=== PATIENT | female | born 1930 | race Caucasian/White ===

== ENCOUNTER 2017-11-10 22:31 | Emergency (ER) | payer MEDICARE, OTHER ==
[2017-11-10 23:49] LABS: #Eosinphils 0.6 thou/uL (0.0-0.7); #Lymphocytes 1.5 thou/uL (1.20-3.40); #Monocytes 0.7 thou/uL (0.11-0.59); #Neutrophils 5.7 thou/uL (1.40-6.50); %Basophils 0.6 % (0.0-1.0); %Eosinophils 6.7 % (0.0-10.0); %Neutrophils 66.8 % (42.0-75.0); Hemoglobin 11.3 g/dL (12.0-16.0); Mean Corpuscular HGB CONC 32.6 g/dL (32.0-36.0); Mean Corpuscular Hemoglobin 30.5 pg (27.0-31.0); Mean Corpuscular Volume 93.4 fl (81.0-99.0); Mean Platelet Volume 9.2 fL (7.4-10.4); Platelet Count 154 thou/uL (130-400); RBC Distribution Width 11.7 % (11.5-14.5); White Blood Cell (WBC) Count 8.5 thou/uL (4.8-10.8)
[2017-11-11 00:02] LABS: ALT (SGPT) 14 U/L (8-55); AST (SGOT) 23 U/L (5-34); Albumin 3.7 g/dL (3.4-4.8); Alkaline Phosphatase 85 U/L (40-150); Anion Gap 14 mmol/L (10-20); BUN (Urea Nitrogen) 59 mg/dL (9.8-20.1); Bilirubin, Total 0.3 mg/dL (0.2-1.2); Calc. Creatinine Clearance 0 mL/min (70-130); Calcium 9.5 mg/dL (7.8-10.44); Carbon Dioxide 26 mmol/L (23-31); Chloride 102 mmol/L (98-107); Estimated GFR-MDRD 22; Glucose 167 mg/dL (83-110); Potassium 4.7 mmol/L (3.5-5.1); Protein, Total 7.7 g/dL (6.0-8.3); Sodium 137 mmol/L (136-145)
[2017-11-11 00:05] LABS: CKMB 1.8 ng/mL (0-6.6); Troponin I 0.012 ng/mL (< 0.028)
[2017-11-11 01:25] LABS: Bilirubin Negative (Negative); Blood, Urine Negative (Negative); Clarity CLEAR (Clear); Glucose, Urine (Dipstick) Negative (Negative); Leukocyte Negative (Negative); Nitrite Negative (Negative); Protein, Urine (Dipstick) Trace mg/dL (Neg-Trace); Specific Gravity, Urine 1.009 (1.002-1.036); Urobilinogen 0.2 mg/dL (0.2-1.0); pH, Urine 6.5 (5.0-9.0)
--- NOTE | 2017-11-11 07:18 | CT ---
CT CERVICAL SPINE WITHOUT CONTRAST: 11/11/2017 HISTORY: Dizziness. Trauma. Fall. COMPARISON: 08/18/2015 TECHNIQUE: Serial axial CT imaging at 2.5 mm intervals, from the skull base through the lung apices. Coronal an d sagittal reformatted imaging obtained. FINDINGS: The C1 ring is intact. No evidence for dens fracture. Occipital condyles are within normal limits. There is prominent degenerative change involving the atlantoaxial interspace/C1-2 articulation, part icularly on the left. Prominent facet and uncovertebral osteophyte formation noted on the right at C3-C4 and bilaterally at C4-C5. There is osseous fusion at C5-C6 with bilateral uncovertebral osteophyte formation. There i s disk space narrowing, degenerative endplate change, and anterior osteophyte formation at C6-C7, sta ble. Imaged lung apices demonstrate no acute findings. No acute fracture or evidence of dislocation is appreciated. The craniocervical junction and the cervicothoracic junction appear intact. No significant anterolis thesis or retrolisthesis. No prevertebral soft tissue swelling. IMPRESSION: Prominent multilevel cervical spine degenerative change. No displaced fracture or evidence of disloc ation seen. POS: [facility]
--- NOTE | 2017-11-11 07:19 | CT ---
HEAD CT WITHOUT CONTRAST: 11/11/2017 HISTORY: Fall. Dizzy. Nausea. COMPARISON: 11/23/2016 TECHNIQUE: Serial axial CT imaging at 5 mm intervals, from the vertex through the skull base, without contrast. FINDINGS: The imaged paranasal sinuses/mastoid air cells are well aerated. No displaced calvarial fracture. There is no intracranial hemorrhage, midline shift, mass effect, or ventricular enlargement. IMPRESSION: No acute findings. POS: [facility]
--- NOTE | 2017-11-11 07:36 | RAD ---
SINGLE VIEW PELVIS: D ate: 11/11/17 COMPARISON: 08/18/15. HISTORY: Fall today with pain. FINDINGS: Single view of the pelvis shows no evidence of acute fracture or dislocation. There is hardware in th e right femur. Moderate degenerative changes are seen in the right hip and lumbar spine. IMPRESSION: No evidence of acute osseous abnormality. POS: [facility]
--- NOTE | 2017-11-11 07:37 | RAD ---
TWO VIEWS OF THE RIGHT FEMUR: COMPARISON: None. HISTORY: Right femur pain after trauma. FINDINGS: Two views of the right femur show a intramedullary minerva in the proximal aspect of the femur. There is periosteal thickening involving the mid portion of the femur secondary to a remote healed fracture. No acute fracture or dislocation is seen. Vascular calcifications are present. IMPRESSION: No evidence of acute osseous abnormality. POS: [facility]
--- NOTE | 2017-11-11 07:40 | RAD ---
2 VIEWS RIGHT HIP: Date: 11/11/17 COMPARISON: None. HISTORY: Fall with right leg pain. FINDINGS: Two views of the right hip show the patient to be status post open reduction and internal fixation of the proximal femur with an intramedullary minerva. No acute fracture is seen. No perihardware lucency is seen. There is moderate degenerative change in the right hip. IMPRESSION: 1. No evidence of acute osseous abnormality. 2. Moderate right hip osteoarthritis. POS: [facility]
--- NOTE | 2017-11-11 07:41 | RAD ---
3 VIEWS LUMBOSACRAL SPINE: Date: 11/11/17 COMPARISON: 11/17/15. HISTORY: Back pain after trauma. FINDINGS: Three views of the lumbosacral spine shows compression deformity of the L3 vertebral body which appea rs new compared to the prior examination. There is Grade I retrolisthesis of L2 on L3. There are diego re degenerative changes throughout the rest of the lumbar spine with intervertebral disc space narrow ing and osteophyte formation. IMPRESSION: 1. There appears to be an acute compression deformity of the superior end plate of L3 with spondylol isthesis of L2 on L3. 2. Severe degenerative changes of the lumbar spine. POS: [facility]
--- NOTE | 2017-11-11 07:55 | CT ---
PRELIMINARY REPORT/[facility]/EMERGENCY AFTER HOURS PROCEDURE: EXAM: CT Lumbar Spine Without Intravenous Contrast CLINICAL HISTORY: 87 years old, female; Injury or trauma; Initial encounter; Abrasion; fall earlier today. felt dizzy a nd nauseous around 1600 then fell. Denies chest pain or SOB prior to fall. hx chronic back pain and C /O back pain now. TECHNIQUE: Axial computed tomography images of the lumbar spine without intravenous contrast. Coronal and sagittal reformatted images were created and reviewed. COMPARISON: No relevant prior studies available. FINDINGS: Vertebrae: Likely acute fracture of L3 with anterior L3 vertebral body cortical irregularity. Old fra cture of L1. Lumbar levoscoliosis. Severe central canal stenosis at L3-4 due to a diffusely bulging d isc, bilateral facet / ligamentum flavum hypertrophy, and mild retrolisthesis of L4 with respect to L 3. Discs/spinal canal/neural foramina: Moderate central canal stenosis at L2-3. Severe central canal yoli nosis at L3-4, L4-5, and L5-S1. Vacuum disc formation at T11-12, L1-2, L2-3, L3-4, L4-5, and L5-S1. A t least partial bony fusion of T12 and L1. Severe central canal stenosis at L4-5 and L5-S1 due to a d iffusely bulging disc and bilateral facet / ligamentum flavum hypertrophy. Moderate central canal yoli nosis at L2-3 due to a diffusely bulging disc and bilateral facet / ligamentum flavum hypertrophy. Soft tissues: Unremarkable. IMPRESSION: 1. Likely acute fracture of L3 with anterior L3 vertebral body cortical irregularity. 2. Old fracture of L1. 3. Moderate central canal stenosis at L2-3. 4. Severe central canal stenosis at L3-4, L4-5, and L5-S1. Thank you for allowing us to participate in the care of your patient. Dictated and Authenticated by: Colton Fermin MD 11/11/2017 2:56 AM Central Time ([place] & [place]) FINAL REPORT EMERGENT AFTER HOURS CT LUMBAR SPINE: IMPRESSION: Comparison is made with the study dated 11/17/15. Remote compression deformity involving L1 is redemo nstrated, chronic. There is interval compression deformity involving the superior end plate of L3, a ge indeterminate. There is minimal stranding of the prevertebral soft tissues. Cortical disruption is not definitely identified. Multilevel degenerative changes are seen with severe central canal yoli nosis at L4-5 and L3-4. Vascular calcifications are noted. POS: [facility]
--- NOTE | 2017-11-11 08:16 | CT ---
PRELIMINARY REPORT/[facility]/EMERGENCY AFTER HOURS PROCEDURE: EXAM: CT Thoracic Spine Without Intravenous Contrast CLINICAL HISTORY: 87 years old, female; Injury or trauma; Initial encounter; Abrasion; fall earlier today. felt dizzy a nd nauseous around 1600 then fell. Denies chest pain or SOB prior to fall. Pt reports chronic back pa in and C/O back pain now. TECHNIQUE: Axial computed tomography images of the thoracic spine without intravenous contrast. Coronal and sagittal reformatted images were created and reviewed. COMPARISON: No relevant prior studies available. FINDINGS: Vertebrae: Old fracture of L1. Age-indeterminate slight superior loss of height of T4 and T6. Likely acute fracture of L3 with anterior L3 vertebral body cortical irregularity. Discs/spinal canal/neural foramina: Spinal degenerative changes. At least partial bony fusion of T12 and L1. No spinal canal stenosis. Soft tissues: Unremarkable. IMPRESSION: 1. Old fracture of L1. 2. Age-indeterminate slight superior loss of height of T4 and T6. 3. Likely acute fracture of L3 with anterior L3 vertebral body cortical irregularity. Thank you for allowing us to participate in the care of your patient. Dictated and Authenticated by: Colton Fermin MD 11/11/2017 4:33 AM Central Time ([place] & [place]) FINAL REPORT CT THORACIC SPINE: Multiple axial tomograms were obtained through the thoracic spine with multiplanar reconstruction. Compression deformity at L1 with loss of central and anterior height approximately 50%. This appears to represent old fracture given the anterior hypertrophic change present. Possibly acute fracture a t L3 as noted on the preliminary report, although this is incompletely evaluated. (See dedicated CT scan lumbar spine.) There are other mild wedge deformities. I am in agreement with the preliminary report. POS: [facility]
== END 2017-11-11 10:36 | disposition home or self-care (01) ==
LOC: ERS 22:31
DX: S32.039A Unspecified fracture of third lumbar vertebra, initial encounter for closed fracture (principal); E11.9 Type 2 diabetes mellitus without complications; K21.9 Gastro-esophageal reflux disease without esophagitis; I10 Essential (primary) hypertension; I25.10 Atherosclerotic heart disease of native coronary artery without angina pectoris; F32.9 Major depressive disorder, single episode, unspecified; F41.9 Anxiety disorder, unspecified; W19.XXXA Unspecified fall, initial encounter
CPT/HCPCS: 70450; 72100; 72125; 72128; 72131; 72170; 73502; 73552; 80053; 81003; 82553; 82962; 84484; 85025; 87086; 93005; L0639; 36416; 96360

== ENCOUNTER 2017-11-12 16:38 | Inpatient (IN) | payer MEDICARE, OTHER ==
[2017-11-12] MEDS ORDERED: Magnesium Sulfate 2 GM/100 ML BAG ONE (16:53)
[2017-11-12] MEDS ORDERED: Albuterol Sulfate 2.5 mg/0.5 ml Neb ONE (16:54)
[2017-11-12] MEDS ORDERED: Albuterol Sulfate 2.5 mg/3 ml Neb ONE (16:54)
[2017-11-12 17:19] LABS: #Basophils 0.1 thou/uL (0.0-0.2); #Eosinphils 0.8 thou/uL (0.0-0.7); #Lymphocytes 1.3 thou/uL (1.20-3.40); #Monocytes 1.1 thou/uL (0.11-0.59); %Basophils 0.4 % (0.0-1.0); %Eosinophils 5.4 % (0.0-10.0); %Lymphocytes 9.2 % (21.0-51.0); %Monocytes 7.8 % (0.0-10.0); %Neutrophils 77.1 % (42.0-75.0); Mean Corpuscular Hemoglobin 31.1 pg (27.0-31.0); Mean Corpuscular Volume 94.3 fl (81.0-99.0); Mean Platelet Volume 8.4 fL (7.4-10.4); Platelet Count 165 thou/uL (130-400); Red Blood Cell (RBC) Count 3.54 mill/uL (4.20-5.40); White Blood Cell (WBC) Count 14.3 thou/uL (4.8-10.8)
[2017-11-12 17:22] LABS: Actual Bicarbonate (HCO3a) 26.8 mEq/L (22-26); Base Excess (BEa) -0.3 mEq/L (0 (+/-) 2.5); CO2 Tension 56.5 mmHg (35.0-45.0); Hematocrit-ABG 32.5 % (36.0-47.0); Hemoglobin (Hb) 10.1 g/dL (12.0-16.0); O2 Tension (PaO2) 87.8 mmHg (80.0-100.0); pH, Arterial 7.29 (7.35-7.45)
[2017-11-12 17:23] LABS: ALV-art Gradient 124.775 (0-20); Analyzer IN Cardio ER; Calcium, Ionized 1.2 mmol/L (1.12-1.30); Puncture Site RB
[2017-11-12] MEDS ORDERED: Ondansetron HCl/PF 4 MG/2 ML Vial ONE (17:39)
[2017-11-12 17:46] LABS: ALT (SGPT) 14 U/L (8-55); AST (SGOT) 21 U/L (5-34); Albumin 3.4 g/dL (3.4-4.8); Alkaline Phosphatase 77 U/L (40-150); Anion Gap 11 mmol/L (10-20); BUN (Urea Nitrogen) 49 mg/dL (9.8-20.1); Bilirubin, Total 0.6 mg/dL (0.2-1.2); Calc. Creatinine Clearance 0 mL/min (70-130); Calcium 8.6 mg/dL (7.8-10.44); Carbon Dioxide 26 mmol/L (23-31); Chloride 104 mmol/L (98-107); Estimated GFR-MDRD 22; Globulin 3.6 g/dL (2.4-3.5); Glucose 270 mg/dL (83-110); Potassium 4.3 mmol/L (3.5-5.1); Sodium 137 mmol/L (136-145)
[2017-11-12 17:51] LABS: CKMB 1.3 ng/mL (0-6.6)
--- NOTE | 2017-11-12 18:10 | RAD ---
PORTABLE CHEST: 11/12/17 HISTORY: Dyspnea. COMPARISON: 11/23/16 Heart is mildly enlarged. There is vascular and interstitial congestion consistent with interstitial and early alveolar edema. No confluent consolidation. No significant effusion. IMPRESSION: Congestive changes with evidence of interstitial and early alveolar edema. POS: [facility]
[2017-11-12 20:50] LABS: Troponin I 0.078 ng/mL (< 0.028)
[2017-11-12] MEDS ORDERED: Ondansetron ODT 4 MG TAB SL PRN (21:27)
[2017-11-12] MEDS ORDERED: Ondansetron HCl/PF 4 MG/2 ML Vial IVP PRN (21:27)
[2017-11-12] MEDS ORDERED: cefTRIAXone\\ROCEPHIN 1 GM in Sodium Chloride 0.9% 100 ML IVPB SCH (22:00)
[2017-11-12] MEDS: Azithromycin 500 MG in Sodium Chloride 0.9% 250 ML 250 ML IVPB SCH (22:26)
[2017-11-12] MEDS: cefTRIAXone\\ROCEPHIN 1 GM, Syringe 0.4 ML in Sterile Water 9.6 ML SLOW IVP SCH (22:27)
[2017-11-12 23:15] VITALS: BMI 30.2
[2017-11-12] MEDS: Sodium Chloride 0.9% 1,000 ML IV SCH (23:42)
--- NOTE | 2017-11-13 00:29 | PDOC.FPRHP ---
Addendum entered and electronically signed by Anita Loving DO 11/13/17 08 :41: Physical exam: General: Patient alert and oriented x3. NAD. Resting comfortably on BiPAP. Well nourished. HEENT: EOMI. MMM. Cardio: RRR. 2/6 systolic murmur. No edema. Respiratory: Decreased breath sounds throughout. No wheezing or rales. Currently satting in upper 90's on BiPAP Abdomen: Soft, non-tender to palpation Neuro: No focal deficits. Original Note: - History of Present Illness Chief Complaint: Respiratory failure History of Present Illness: Patient seen on 11/12/2017 87 year old female with history of mild CHF with EF 40-45%, HTN, CKD stage III presents with acute hypoxic respiratory failure. Patient was reportedly at home with her son when she started to feel unwell. She asked her son to call 911, and the next thing she knew, she was at the hospital. She does not recall all of the events in between. EMS reports that patient's oxygen saturation was down in the 50's. Patient was given O2 in route and started on BiPAP upon arrival to ED as her O2 sats on 4 L was only 67%. She has been satting in the upper 90's on BiPAP. Patient does report that over the last two week she has had a cough with mild sputum production. She has otherwise felt fine and denies fever, sore throat, headache, nasal congestion, chest pain, or palpitations. Patient states that she has been trying to get into [facility] to have the cough addressed. ED Course: Patient was given albuterol 2.5 mg x2, duoneb 3 ml x2, and Mg sulfate 2 g in ED. She was also started on BiPAP for acute hypoxic respiratory failure. - Allergies/Adverse Reactions Allergies Allergy/AdvReac Type Severity Reaction Status Date / Time clarithromycin [From Biaxin] Allergy Unknown Verified 07/27/17 17:20 metoclopramide HCl Allergy Unknown Verified 07/27/17 17:20 [From Reglan] sulfamethoxazole Allergy Unknown Verified 07/27/17 17:20 [From Bactrim] trimethoprim [From Bactrim] Allergy Unknown Verified 07/27/17 17:20 levofloxacin [From Levaquin] AdvReac Mild Nausea Verified 07/27/17 17:20 - Home Medications Medication Instructions Recorded Confirmed Type Polyethylene Glycol 3350 [Miralax] 17 gm PO Q2DAYS PRN 03/14/14 11/13/17 History Aspirin [Aspirin EC] 81 mg PO DAILY 06/22/14 11/13/17 History Escitalopram Oxalate [Lexapro] 20 mg PO DAILY 06/22/14 11/13/17 History Pantoprazole [Protonix] 40 mg PO DAILY 08/18/15 11/13/17 History Zolpidem Tartrate [Ambien] 5 mg PO HS PRN 11/17/15 11/13/17 History Ondansetron [Zofran ODT] 4 mg PO Q8HR PRN 11/18/15 11/13/17 History cloNIDine HCl 0.2 mg PO BID 11/24/16 11/13/17 History Acetaminophen With Codeine 1 tablet PO Q6HR PRN 07/27/17 11/13/17 History [Tylenol with Codeine #3] Amlodipine [Norvasc] 5 tab PO BID 07/27/17 11/13/17 History Multivit-Minerals/Folic/Ginkgo 1 tablet PO DAILY 07/27/17 11/13/17 History [One Daily For Women 50+ Adv] Nitroglycerin 0.4 mg SL ASDIR PRN 07/27/17 11/13/17 History Pregabalin [Lyrica] 2 cap PO QPM 07/27/17 11/13/17 History Pregabalin [Lyrica] 25 mg PO QAM 07/27/17 11/13/17 History Carvedilol 25 mg PO BID #1 tablet 07/28/17 11/13/17 Rx Aspirin [Ecotrin] 81 mg PO DAILY 11/13/17 11/13/17 History - History PMHx: Ischemic cardiomyopathy with EF 40-45%, Essential HTN, Chronic kidney disease stage III, OA, DM type II, MDD, RLS, GERD PSHx: Appendectomy, Hysterectomy, Bladder suspension, Cystoscopy and ureteral stent placement FHx: Noncontributory Social: Patient lives at home with son. She reports that she is having difficulty with ADL's. She is recently (approximately 1 year ago). Patient denies tobacco, alcohol, or illicit drug use. - Review of Systems General: denies: fever/chills, weight/appetite/sleep changes, fatigue Eyes: denies: vision changes ENT: denies: nasal congestion, rhinorrhea Respiratory: reports: cough, congestion, shortness of breath Cardiovascular: denies: chest pain, palpitation, edema Gastrointestinal: denies: nausea, vomiting, diarrhea, constipation Genitourinary: reports: polyuria. denies: dysuria Skin: denies: rashes, lesions Musculoskeletal: reports: pain, arthritis/arthralgias Neurological: reports: syncope (Uncertain; cannot recall the events) Psychological: reports: anxiety, depression - Vital signs BP: 135/51 HR: 101 RR: 30 Tmax: 99.2 Pox: 67% on 4L Wt: 85 kg - Physical Exam Neck: supple, trachea midline Musculoskeletal: normal tone, ROM grossly normal Neurological: CN II-XII intact, normal sensation Skin: no rash/lesions, no jaundice Psychiatric: normal mood and affect FMR H&P: Results - Labs Result Diagrams: 11/13/17 03:54 11/13/17 03:54 Lab results: WBC 14.3 thou/uL (4.8-10.8) H 11/12/17 17:09 Hgb 11.0 g/dL (12.0-16.0) L 11/12/17 17:09 Hct 33.3 % (36.0-47.0) L 11/12/17 17:09 MCV 94.3 fl (81.0-99.0) 11/12/17 17:09 Plt Count 165 thou/uL (130-400) 11/12/17 17:09 Neutrophils % 77.1 % (42.0-75.0) H 11/12/17 17:09 ABG pH 7.29 (7.35-7.45) L 11/12/17 17:00 ABG pCO2 56.5 mmHg (35.0-45.0) H 11/12/17 17:00 ABG pO2 87.8 mmHg (80.0-100.0) 11/12/17 17:00 Sodium 137 mmol/L (136-145) 11/12/17 17:09 Potassium 4.3 mmol/L (3.5-5.1) 11/12/17 17:09 Chloride 104 mmol/L (98-107) 11/12/17 17:09 Carbon Dioxide 26 mmol/L (23-31) 11/12/17 17:09 BUN 49 mg/dL (9.8-20.1) H 11/12/17 17:09 Creatinine 2.11 mg/dL (0.6-1.1) H 11/12/17 17:09 Glucose 270 mg/dL (83-110) H 11/12/17 17:09 Lactic Acid 1.6 mmol/L (0.5-2.2) 11/12/17 17:09 Calcium 8.6 mg/dL (7.8-10.44) 11/12/17 17:09 Total Bilirubin 0.6 mg/dL (0.2-1.2) 11/12/17 17:09 AST 21 U/L (5-34) 11/12/17 17:09 ALT 14 U/L (8-55) 11/12/17 17:09 Alkaline Phosphatase 77 U/L (40-150) 11/12/17 17:09 CK-MB (CK-2) 1.3 ng/mL (0-6.6) 11/12/17 17:09 B-Natriuretic Peptide 276.6 pg/mL (0-100) H 11/12/17 17:09 Serum Total Protein 7.0 g/dL (6.0-8.3) 11/12/17 17:09 Albumin 3.4 g/dL (3.4-4.8) 11/12/17 17:09 FMR H&P: A/P - Problem List (1) Acute respiratory failure with hypoxia Current Visit: No Status: Acute Code(s): J96.01 - ACUTE RESPIRATORY FAILURE WITH HYPOXIA (2) Community acquired pneumonia Current Visit: Yes Status: Acute Code(s): J18.9 - PNEUMONIA, UNSPECIFIED ORGANISM (3) Combined systolic and diastolic congestive heart failure Current Visit: Yes Status: Chronic Code(s): I50.40 - UNSP COMBINED SYSTOLIC AND DIASTOLIC (CONGESTIVE) HRT FAIL (4) HLD (hyperlipidemia) Current Visit: No Status: Chronic Code(s): E78.5 - HYPERLIPIDEMIA, UNSPECIFIED (5) Anxiety and depression Current Visit: No Status: Chronic Code(s): F41.9 - ANXIETY DISORDER, UNSPECIFIED; F32.9 - MAJOR DEPRESSIVE DISORDER, SINGLE EPISODE, UNSPECIFIED (6) DM type 2 (diabetes mellitus, type 2) Current Visit: No Status: Chronic Qualifiers: Diabetes mellitus complication status: with kidney complications Diabetes mellitus complication detail: with chronic kidney disease Diabetes mellitus skilled nursing insulin use: unspecified skilled nursing insulin use status Chronic kidney disease stage: stage 3 (moderate) Qualified Code(s): E11.22 - Type 2 diabetes mellitus with diabetic chronic kidney disease; N18.3 - Chronic kidney disease, stage 3 (moderate); N18.3 - Chronic kidney disease, stage 3 (moderate) (7) GERD (gastroesophageal reflux disease) Current Visit: No Status: Chronic Code(s): K21.9 - GASTRO-ESOPHAGEAL REFLUX DISEASE WITHOUT ESOPHAGITIS (8) Hypertension Current Visit: No Status: Chronic Code(s): I10 - ESSENTIAL (PRIMARY) HYPERTENSION Qualifiers: Hypertension type: essential hypertension Qualified Code(s): I10 - Essential (primary) hypertension (9) Physical deconditioning Current Visit: No Status: Chronic Code(s): R53.81 - OTHER MALAISE (10) Chronic kidney disease, stage III (moderate) Current Visit: Yes Status: Chronic Code(s): N18.3 - CHRONIC KIDNEY DISEASE, STAGE 3 (MODERATE) (11) Vertebral fracture Current Visit: Yes Status: Acute Code(s): [id number] - Qualifiers: Encounter type: subsequent encounter Lumbar vertebra fracture level: L2 - Plan 1. Acute hypoxic respiratory failure - 50% on RA, 67% on 4L NC - On BiPAP satting upper 90's - Likely 2/2 CAP vs. Bronchitis vs. PE - Mildly elevated WBC with mild suspicion for CAP; started on rocephin and azithromycin - D-dimer pending; VQ scan pending D-dimer results, will consider starting on therapeutic heparin/lovenox depending on results - 2 week history of cough; has not been evaluated or treated in last 2 weeks - Possibly related to norco overdose (reportedly took 2 pills of unknown dose and has stage III CKD) - Continue BiPAP; wean as appropriate - Patient in IMCU; pulmonology to follow, appreciate recs - PH 7.19, pCO2 56.5, pO2 88 - Trend cardiac enzymes (indeterminate range currently) - NS @ 70 ml/hr until off BiPAP 2. CAP vs. Acute bacterial bronchitis - Mildly elevated WBC with worsening cough over the past two weeks - Associated with acute hypoxic respiratory failure requiring BiPAP - Treatment with rocephin and azithromycin for presumed CAP - Treatment with steroids, rocephin and duonebs for presumed bacterial bronchitis - Reevaluate clinically in AM - Strep pneumo urinary ag pending - Procalcitonin to further evaluate for infection 3. 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 HTN - IV BP medications until off BiPAP - Continue home medications once off BiPAP 5. HLD - Continue home medications once of BiPAP 6. DM type II - Mild SSI - Continue home medications - ACHS accuchecks 7. Depression and Anxiety - Continue home medications once off BiPAP 8. GERD - IV pepcid 9. OA - Tylenol for pain PRN/continue home medications once tolerating PO 10. RLS - Continue home medications once off BiPAP 11. Acute on chronic kidney disease stage III - Cr 2.11 with GFR of 22 placing patient in stage 4 CKD - Mildly fluid resuscitate and continue to monitor BMP - Consider consulting nephrology in the AM; patient sees Dr. Mc outpatient 12. Acute L2 vertebral fracture - s/p fall day prior to admission - Prescribed [place] for pain - Patient takes tylenol 3 for general pain daily; concern that patient may have taken too many pain meds - Until respiratory status has improved, will attempt to treat pain with tylenol Disposition/LOS: Admit to IMCU. Continue on BiPAP. Anticipate stay of at least 2 days. FMR H&P: Upper Level - Pertinent history Pt is a pleasant 87 yo WF w/ hx of rEF CHF 40-45% who present with acute hypoxic respiratory failure per EMS. She was found to be satting in the 50s-60% on RA and was started on Bipap. She appears comfortable during my exam on Bipap , speaking freely w/o SOB. Reports that she cannot remember exactly what happened other than she was feeling sleepy and told her son to call 911 as she was feeling very SOB. Reports that she took some narcotic pain medicine earlier today and it made her sleepy and she wondering if this affected her breathing. No hx of blood clots. Does report recent hx of cough and feeling ill over the last few weeks and being more sedentary in bed. Denies fever, chill, n/v. Of note, she was seen in the ED yesterday after a fall at home and was found to have lumber vertebral fx. - Pertinent findings BNP elevated above her baseline D-dimer of 10 VQ scan pending gen: alert, oriented, on bipap satting 97%, speaking comfortably, does not appear winded cardiac: RRR pulm: decreased air movement b/l, wheezing abdomen: soft non TTP - Plan Date/Time: 11/13/17 0013 I, Lorena Oconnor, have evaluated this patient and agree with findings/plan as outlined by application internship resident. 1. acute hypoxic respiratory failure-admit IMCU, stable, unsure of cause at this point PE at top of differential, will not be able to obtain VQ scan until morning so we will give her a Th. lovenox renally dosed tonight. Other DDx includes-accidental opioid overdose, CHF exac, bronchitis/obstructive process 2. bronchitis vs early CAP-airways are very tight, treat with steroids, nebs, start abx for now until resp status improving 3. CHF-reduced EF in November 2016, will repeat this stay 4. acute lumber vertebral fx-treat pain appropriately, caution with opioids 5. CKD IV-consult nephro in AM, may need recs regarding treatment of PE, needing outpatient follow up with stable CKD Attending Addendum - Attending Addendum Date/Time: 11/12/17 1120 I personally evaluated the patient and discussed the management with Dr. Manuel. I agree with the History, Examination, Assessment and Plan documented above with any addition or exceptions noted below. I examined the patient on 11/12/17 in the ER. The patient was resting comfortably on Bipap. She presented to the ER via EMS after becoming unresponsive and hypoxic. Lung exam shows scattered wheezing and decreased air movement. She has no edema in lower extremities. Will treat with azithromycin and rocephin. Repeat echo. Will check D-dimer. If elevated, patient will be set up for VQ scan. Renal function will not support CTA chest. Pain control for lumbar fracture. PT eval when stable from respiratory standpoint.
[2017-11-13 01:05] LABS: CKMB 1.1 ng/mL (0-6.6); Troponin I 0.101 ng/mL (< 0.028)
[2017-11-13] MEDS ORDERED: Enoxaparin Sodium 100 MG/ML SYRINGE SC SCH (01:30)
[2017-11-13] MEDS ORDERED: Dextrose 5% in Water 1,000 ML IV PRN (01:43)
[2017-11-13] MEDS ORDERED: Dextrose 50% Abboject 50 ML SYRINGE SLOW IVP PRN (01:43)
[2017-11-13] MEDS ORDERED: hydrALAZINE 20 MG/ML VIAL SLOW IVP PRN (01:44)
[2017-11-13] MEDS: Acetaminophen 325 MG TAB PO PRN ×3 (02:52→23:16)
[2017-11-13 03:07] LABS: Troponin I 0.072 ng/mL (< 0.028)
[2017-11-13] MEDS ORDERED: Nitroglycerin 0.4 MG TAB (25 Tab Bottle) SL PRN (03:45)
[2017-11-13] MEDS ORDERED: Ondansetron ODT 4 MG TAB PO PRN (03:45)
[2017-11-13 04:25] LABS: #Eosinphils 0.1 thou/uL (0.0-0.7); #Lymphocytes 0.8 thou/uL (1.20-3.40); #Monocytes 0.3 thou/uL (0.11-0.59); #Neutrophils 8.5 thou/uL (1.40-6.50); %Eosinophils 0.6 % (0.0-10.0); %Lymphocytes 8.4 % (21.0-51.0); %Neutrophils 87.9 % (42.0-75.0); Hemoglobin 10.6 g/dL (12.0-16.0); Mean Corpuscular Hemoglobin 30.3 pg (27.0-31.0); Mean Corpuscular Volume 94.8 fl (81.0-99.0); Mean Platelet Volume 8.7 fL (7.4-10.4); Platelet Count 146 thou/uL (130-400); Red Blood Cell (RBC) Count 3.49 mill/uL (4.20-5.40); White Blood Cell (WBC) Count 9.7 thou/uL (4.8-10.8)
[2017-11-13 04:38] LABS: Anion Gap 15 mmol/L (10-20); BUN (Urea Nitrogen) 45 mg/dL (9.8-20.1); Calc. Creatinine Clearance 27 mL/min (70-130); Calcium 8.8 mg/dL (7.8-10.44); Carbon Dioxide 23 mmol/L (23-31); Chloride 105 mmol/L (98-107); Estimated GFR-MDRD 25; Glucose 246 mg/dL (83-110); Potassium 4.9 mmol/L (3.5-5.1); Sodium 138 mmol/L (136-145)
[2017-11-13 05:31] LABS: CKMB 1.2 ng/mL (0-6.6)
--- NOTE | 2017-11-13 08:00 | PDOC.FM ---
- Subjective Subjective: CC: Multiple complaints HPI: Patient resting off BiPAP and on 4L NC. Denies SOB. patient is tangential and desired to talk about multiple complaints including the sore on her foot, issues she had with her son at the rehab facility/long term, concerns about lul the flu, and her possible medication interactions. She also spoke frequently about her late who past 2 years ago this Wednesday. She became tearful regarding this subject multiple times. - Objective MAR Reviewed: Yes Vital Signs & Weight: Vital Signs (12 hours) Temp Pulse Resp BP Pulse Ox 11/13/17 07:18 97.9 F 70 18 137/57 L 98 11/13/17 06:02 69 18 100 11/13/17 04:00 98.1 F 74 20 134/46 L 98 11/13/17 02:05 71 11/13/17 02:04 99 11/12/17 23:35 98.8 F 67 16 105/45 L 95 11/12/17 23:14 65 99 11/12/17 23:12 100 11/12/17 21:40 99.3 F 71 24 H 151/67 H 98 Weight Weight 85.049 kg I&O: 11/12/17 11/13/17 11/14/17 06:59 06:59 06:59 Intake Total 950 Balance 950 Result Diagrams: 11/13/17 03:54 11/13/17 03:54 Radiology Reviewed by me: Yes <Alton Rose - Last Filed: 11/13/17 10:08> - Objective Vital Signs & Weight: Vital Signs (12 hours) Temp Pulse Resp BP Pulse Ox 11/13/17 09:46 70 11/13/17 07:45 97.9 F 70 18 94 L 11/13/17 07:18 97.9 F 70 18 137/57 L 98 11/13/17 06:02 69 18 100 11/13/17 04:00 98.1 F 74 20 134/46 L 98 11/13/17 02:05 71 11/13/17 02:04 99 Weight Weight 85.049 kg I&O: 11/12/17 11/13/17 11/14/17 06:59 06:59 06:59 Intake Total 950 Balance 950 Result Diagrams: 11/13/17 03:54 11/13/17 03:54 <Maggie Carter - Last Filed: 11/13/17 11:37> Phys Exam - Physical Examination Constitutional: NAD HEENT: moist MMs, sclera anicteric Respiratory: no wheezing, clear to auscultation bilateral (decent air movement. ) Cardiovascular: RRR holosystolic murmur 2/6 Gastrointestinal: soft, non-tender Musculoskeletal: no edema small black eschar on plantar surface left second digit. Neurological: non-focal, moves all 4 limbs Psychiatric: A&O x 3 Deviation from normal: depressed affect and tearful at times. Skin: cap refill <2 seconds <Alton Rose - Last Filed: 11/13/17 10:08> Dx/Plan (1) Acute respiratory failure with hypoxia Code(s): J96.01 - ACUTE RESPIRATORY FAILURE WITH HYPOXIA Status: Acute (2) Community acquired pneumonia Code(s): J18.9 - PNEUMONIA, UNSPECIFIED ORGANISM Status: Acute (3) Combined systolic and diastolic congestive heart failure Code(s): I50.40 - UNSP COMBINED SYSTOLIC AND DIASTOLIC (CONGESTIVE) HRT FAIL Status: Chronic (4) HLD (hyperlipidemia) Code(s): E78.5 - HYPERLIPIDEMIA, UNSPECIFIED Status: Chronic (5) Anxiety and depression Code(s): F41.9 - ANXIETY DISORDER, UNSPECIFIED; F32.9 - MAJOR DEPRESSIVE DISORDER, SINGLE EPISODE, UNSPECIFIED Status: Chronic (6) DM type 2 (diabetes mellitus, type 2) Status: Chronic QualifierTitle: Diabetes mellitus complication status: with kidney complications Diabetes mellitus complication detail: with chronic kidney disease Diabetes mellitus skilled nursing insulin use: unspecified window draper insulin use status Chronic kidney disease stage: stage 3 (moderate) Qualified Code(s): E11.22 - Type 2 diabetes mellitus with diabetic chronic kidney disease; N18.3 - Chronic kidney disease, stage 3 (moderate); N18.3 - Chronic kidney disease, stage 3 (moderate) (7) GERD (gastroesophageal reflux disease) Code(s): K21.9 - GASTRO-ESOPHAGEAL REFLUX DISEASE WITHOUT ESOPHAGITIS Status: Chronic (8) Hypertension Code(s): I10 - ESSENTIAL (PRIMARY) HYPERTENSION Status: Chronic QualifierTitle: Hypertension type: essential hypertension Qualified Code( s): I10 - Essential (primary) hypertension (9) Physical deconditioning Code(s): R53.81 - OTHER MALAISE Status: Chronic (10) Chronic kidney disease, stage III (moderate) Code(s): N18.3 - CHRONIC KIDNEY DISEASE, STAGE 3 (MODERATE) Status: Chronic (11) Vertebral fracture Code(s): [id number] - Status: Acute QualifierTitle: Encounter type: subsequent encounter Lumbar vertebra fracture level: L2 - Plan Plan: 1. Acute hypoxic respiratory failure - Off BiPAP and weaning oxygen. currently on 1-2 L NC. - transfer to Tele - VQ scan pending, will f/u with results - Will attempt to perform PA/Lateral CXR - NS @ 70 ml/hr 2. CAP vs. Acute bacterial bronchitis - Rocephin/azithro day 2 - Mildly elevated WBC with worsening cough over the past two weeks - Associated with acute hypoxic respiratory failure s/p BiPAP - Strep pneumo urinary ag pending - Procalcitonin unremarkable. 3. 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 - Trops trended down but patient c/o CP per nursing. Repeat trop and CKMB 4. HTN Resume home meds 5. HLD Home meds 6. DM type II - Mild SSI - Continue home medications - ACHS accuchecks 7. Depression and Anxiety - Continue home medications - appears to be depressed and has significant psychosocial stress. 8. GERD -PO pepcid 9. OA - Tylenol for pain PRN/continue home medications once tolerating PO 10. Deconditioning - PT/TO 11. Acute on chronic kidney disease stage III - Cr 1.9 with GFR of 22 placing patient in stage 4 CKD - Mildly fluid resuscitate and continue to monitor BMP - Consider consulting nephrology if renal function does not return to baseline tomorrow; patient sees Dr. Mc outpatient 12. Acute L2 vertebral fracture - s/p fall day prior to admission - Prescribed [place] for pain - Patient takes tylenol 3 for general pain daily; states she takes 2-3 tabs daily but is unsure. <Alton Rose - Last Filed: 11/13/17 10:08> (1) Acute respiratory failure with hypoxia Code(s): J96.01 - ACUTE RESPIRATORY FAILURE WITH HYPOXIA Status: Acute (2) Community acquired pneumonia Code(s): J18.9 - PNEUMONIA, UNSPECIFIED ORGANISM Status: Acute (3) Combined systolic and diastolic congestive heart failure Code(s): I50.40 - UNSP COMBINED SYSTOLIC AND DIASTOLIC (CONGESTIVE) HRT FAIL Status: Chronic (4) HLD (hyperlipidemia) Code(s): E78.5 - HYPERLIPIDEMIA, UNSPECIFIED Status: Chronic (5) Anxiety and depression Code(s): F41.9 - ANXIETY DISORDER, UNSPECIFIED; F32.9 - MAJOR DEPRESSIVE DISORDER, SINGLE EPISODE, UNSPECIFIED Status: Chronic (6) DM type 2 (diabetes mellitus, type 2) Status: Chronic Qualifiers: Diabetes mellitus complication status: with kidney complications Diabetes mellitus complication detail: with chronic kidney disease Diabetes mellitus skilled nursing insulin use: unspecified window draper insulin use status Chronic kidney disease stage: stage 3 (moderate) Qualified Code(s): E11.22 - Type 2 diabetes mellitus with diabetic chronic kidney disease; N18.3 - Chronic kidney disease, stage 3 (moderate); N18.3 - Chronic kidney disease, stage 3 (moderate) (7) GERD (gastroesophageal reflux disease) Code(s): K21.9 - GASTRO-ESOPHAGEAL REFLUX DISEASE WITHOUT ESOPHAGITIS Status: Chronic (8) Hypertension Code(s): I10 - ESSENTIAL (PRIMARY) HYPERTENSION Status: Chronic Qualifiers: Hypertension type: essential hypertension Qualified Code(s): I10 - Essential (primary) hypertension (9) Physical deconditioning Code(s): R53.81 - OTHER MALAISE Status: Chronic (10) Chronic kidney disease, stage III (moderate) Code(s): N18.3 - CHRONIC KIDNEY DISEASE, STAGE 3 (MODERATE) Status: Chronic (11) Vertebral fracture Code(s): [id number] - Status: Acute Qualifiers: Encounter type: subsequent encounter Lumbar vertebra fracture level: L2 <Maggie Carter - Last Filed: 11/13/17 11:37> Attending Addendum - Attending Addendum Date/Time: 11/13/17 [id number] I personally evaluated the patient and discussed the management with Dr. Rose. I agree with the History, Examination, Assessment and Plan documented above with any addition or exceptions noted below. The patient is off bipap. She will be transferred to telemetry. She denied complaints to us but noted chest pain to the nurses. Will repeat cardiac enzymes and an ekg. Will continue antibiotics. Will get VQ scan today and consult nephrology. <Maggie Carter - Last Filed: 11/13/17 11:37>
[2017-11-13] MEDS: Amlodipine 5 MG TAB PO SCH ×2 (09:46→21:49)
[2017-11-13] MEDS: Escitalopram Oxalate 10 mg Tablet PO SCH (09:47)
[2017-11-13] MEDS: cloNIDine 0.1 MG TAB PO SCH ×2 (09:47→21:48)
[2017-11-13] MEDS: Carvedilol 25 MG TAB PO SCH ×2 (09:47→21:49)
[2017-11-13] MEDS: Multivitamin W/ Minerals 1 TAB PO SCH (09:49)
[2017-11-13] MEDS: Famotidine/PF 20 mg/2ml Vial SLOW IVP SCH (09:52)
[2017-11-13] MEDS: Aspirin 81 mg Enteric Coated Tablet PO SCH (10:02)
[2017-11-13 10:51] LABS: CKMB 1.9 ng/mL (0-6.6); Troponin I 0.264 ng/mL (< 0.028)
[2017-11-13] MEDS: Sodium Chloride 0.9% 1,000 ML IV SCH (14:14)
[2017-11-13 14:15] LABS: CKMB 2.5 ng/mL (0-6.6)
[2017-11-13 14:30] LABS: Troponin I 0.469 ng/mL (< 0.028)
--- NOTE | 2017-11-13 14:33 | NM ---
VQ SCAN: Date: 11/13/17 HISTORY: Shortness of breath. TECHNIQUE: A ventilation perfusion scan was performed using 13.4 mCi Xenon-133 by inhalation for the ventilation study followed by the intravenous administration of 5.3 mCi technetium-99m MAA for the perfusion sca n. FINDINGS: Comparison is made with exam of 11/24/16. Correlation is made with portable chest radiograph from pre vious evening. A small fixed defect in the left lower lung is stable. No mismatched, pleural based, wedge-shaped per fusion defects are seen. IMPRESSION: Very low probability for pulmonary embolism. POS: [facility]
--- NOTE | 2017-11-13 14:53 | RAD ---
PA AND LATERAL VIEWS OF CHEST: Date: 11/13/17 HISTORY: CHF. FINDINGS: Comparison made with exam of 11/12/17. The heart is enlarged. There is mild pulmonary vascular congestion. No lobar consolidation, pneumotho races, or large effusions are seen. IMPRESSION: Mild CHF. POS: [facility]
[2017-11-13] MEDS: HumaLOG 300 UNITS/3 ML VIAL SC PRN ×2 (17:09→22:03)
[2017-11-13 18:05] LABS: CKMB 2.7 ng/mL (0-6.6)
[2017-11-13 18:11] LABS: Troponin I 0.539 ng/mL (< 0.028)
[2017-11-13] MEDS ORDERED: Sodium Chloride 0.9% 1,000 ML IV SCH (19:00)
[2017-11-13] MEDS ORDERED: Furosemide 20 MG/2 ML VIAL SLOW IVP SCH (19:00)
--- NOTE | 2017-11-13 19:28 | CON ---
DATE OF CONSULTATION: 11/13/2017 REASON FOR CONSULTATION: Shortness of breath with increased troponin level. PRIMARY DIRECTOR FUNDRAISING: Dr. John Harvey. HISTORY OF PRESENT ILLNESS: Ms. Beverley Moralez is a very pleasant 87-year-old woman. She came to the hospital with difficulty breathing. There was some concern that she could have had a pulmonary embol us and therefore ventilation perfusion scanning was done which was unremarkable. A CT angiography wa s not done due to renal insufficiency, chronic. The patient was found to have also increased in card iac enzymes. She did not have chest pain. PAST MEDICAL HISTORY: The patient has a history of coronary artery disease. She underwent cardiac c atheterization in 1997 and again in 2004. She has separate ostia, was TIA. At the LAD and circumfle x, there is a 30% to 40% ostial LAD lesion. The most recent catheterization in 2004. The patient underwent stress testing in 2016 did not have any ischemia, normal study. MEDICATIONS: 1. Amlodipine. 2. Aspirin. 3. Carvedilol. 4. Clonidine. 5. Livalo. 6. Lyrica. 7. Pantoprazole. 8. Losartan. 9. Zolpidem. ALLERGIES: CLARITHROMYCIN, CODEINE, LEVOFLOXACIN, SULFA. REVIEW OF SYSTEMS: Constitutional: No significant weight gain or loss. Vision: No changes. Heari ng: No changes. Pulmonary: No cough or wheezing. Cardiac: Positive for shortness of breath, but no chest pain. Gastrointestinal: No nausea, vomiting, diarrhea. Skin: No rashes. Neurologic: No unilateral weakness or numbness. Psychiatric: No unusual depression or anxiety. PHYSICAL EXAMINATION: GENERAL: This is a pleasant 87-year-old woman resting comfortably in no distress. VITAL SIGNS: Blood pressure 150/70, pulse 70. EYES: Sclerae nonicteric. Mouth mucous membranes moist. NECK: Supple, no lymphadenopathy. LUNGS: Clear, no wheezing, rales, or rhonchi. CARDIOVASCULAR: Normal S1, normal S2. There is no murmur, rub, or gallop. ABDOMEN: Soft, nontender, no hepatosplenomegaly. EXTREMITIES: Warm, dry, no clubbing, cyanosis, or edema. LABORATORY AND X-RAY FINDINGS: Arterial blood gas yesterday pH 7.29, pCO2 is 56, pO2 is 87.8. Chest x-ray mild congestive heart failure. Echocardiogram showed normal left ventricular function, mild a ortic stenosis, mild concentric left ventricular hypertrophy, moderate tricuspid insufficiency with s everely elevated pulmonary pressure. ASSESSMENT: Congestive heart failure, diastolic. Slight increase in troponin levels, probably this represents a non-ST elevation infarction, although it could be demand ischemia. PLAN: 1. Reduce intravenous fluid. 2. Give her dose of Lasix. 3. We will follow with you.
[2017-11-13 20:25] LABS: Strep pneumo Urine Ag NEGATIVE (NEGATIVE)
[2017-11-13] MEDS ORDERED: Enoxaparin Sodium 80 MG/0.8 ML SYRINGE SC SCH (21:00)
[2017-11-13] MEDS: Polyethylene Glycol 3350 17 GM Packet PO PRN (21:49)
[2017-11-13] MEDS: Azithromycin 500 MG in Sodium Chloride 0.9% 250 ML 250 ML IVPB SCH (21:52)
[2017-11-13] MEDS: cefTRIAXone\\ROCEPHIN 1 GM, Syringe 0.4 ML in Sterile Water 9.6 ML SLOW IVP SCH (23:16)
[2017-11-13 23:37] LABS: Critical Call Chem Troponin I RESULT DECREASING; Troponin I 0.497 ng/mL (< 0.028)
[2017-11-14] MEDS ORDERED: Pregabalin 50 MG CAP PO SCH (00:30)
[2017-11-14] MEDS: Acetaminophen 325 MG TAB PO PRN (05:57)
[2017-11-14] MEDS: HumaLOG 300 UNITS/3 ML VIAL SC PRN ×4 (05:58→21:43)
[2017-11-14 07:17] LABS: #Lymphocytes 0.7 thou/uL (1.20-3.40); #Monocytes 0.4 thou/uL (0.11-0.59); #Neutrophils 9.5 thou/uL (1.40-6.50); %Basophils 0.1 % (0.0-1.0); %Eosinophils 0.1 % (0.0-10.0); %Lymphocytes 6.4 % (21.0-51.0); %Monocytes 3.6 % (0.0-10.0); %Neutrophils 89.9 % (42.0-75.0); Hemoglobin 11.1 g/dL (12.0-16.0); Mean Corpuscular HGB CONC 32.6 g/dL (32.0-36.0); Mean Corpuscular Hemoglobin 30.8 pg (27.0-31.0); Mean Corpuscular Volume 94.6 fl (81.0-99.0); Mean Platelet Volume 8.9 fL (7.4-10.4); Platelet Count 173 thou/uL (130-400); RBC Distribution Width 11.9 % (11.5-14.5); White Blood Cell (WBC) Count 10.5 thou/uL (4.8-10.8)
[2017-11-14 07:38] LABS: BUN (Urea Nitrogen) 47 mg/dL (9.8-20.1)
[2017-11-14 07:48] LABS: CKMB 2.6 ng/mL (0-6.6); Troponin I 0.241 ng/mL (< 0.028)
[2017-11-14 08:11] LABS: Chloride 104 mmol/L (98-107); Sodium 138 mmol/L (136-145)
[2017-11-14 08:12] LABS: Calcium 9.4 mg/dL (7.8-10.44); Glucose 327 mg/dL (83-110)
[2017-11-14 08:14] LABS: Carbon Dioxide 22 mmol/L (23-31)
[2017-11-14 08:15] LABS: Calc. Creatinine Clearance 30 mL/min (70-130); Estimated GFR-MDRD 27
[2017-11-14 08:31] LABS: Anion Gap 18 mmol/L (10-20)
[2017-11-14] MEDS: Amlodipine 5 MG TAB PO SCH ×2 (08:55→21:48)
[2017-11-14] MEDS: Aspirin 81 mg Enteric Coated Tablet PO SCH (08:56)
[2017-11-14] MEDS: Carvedilol 25 MG TAB PO SCH ×2 (08:56→21:49)
[2017-11-14] MEDS: Acetaminophen/Codeine 30-300mg Tablet PO PRN ×3 (08:58→21:46)
[2017-11-14] MEDS ORDERED: FLU VACC TS2017-18 (>65YR) 0.5 ML SYRINGE IM ONE (09:00)
[2017-11-14] MEDS ORDERED: Prevnar 13-Val Conj/PF 0.5 ML SYRINGE IM ONE (09:00)
[2017-11-14] MEDS ORDERED: Enoxaparin Sodium 100 MG/ML SYRINGE SC SCH (09:00)
[2017-11-14] MEDS: cloNIDine 0.1 MG TAB PO SCH ×2 (09:02→21:49)
[2017-11-14] MEDS: Multivitamin W/ Minerals 1 TAB PO SCH (09:02)
[2017-11-14] MEDS: Famotidine/PF 20 mg/2ml Vial SLOW IVP SCH (09:04)
[2017-11-14] MEDS: Escitalopram Oxalate 10 mg Tablet PO SCH (09:06)
--- NOTE | 2017-11-14 09:26 | PDOC.FM ---
- Subjective Subjective: CC: back pain HPI: States her breathing has improved today. c/o of limited mobility 2/2 back pain and requesting home medications to be restarted. No other concerns today or events overnight. Nursing concerned about blood glucose. - Objective Vital Signs & Weight: Vital Signs (12 hours) Temp Pulse Resp BP BP Pulse Ox 11/14/17 09:02 166/72 H 11/14/17 08:55 70 155/67 H 11/14/17 07:47 97 11/14/17 07:44 70 16 11/14/17 07:40 96.9 F L 68 12 96 11/14/17 07:39 96.9 F L 68 155/67 H 96 11/14/17 04:11 97.9 F 70 20 183/80 H 95 11/14/17 01:16 16 11/13/17 21:49 75 166/72 H 11/13/17 21:48 166/72 H Weight Weight 86.636 kg I&O: 11/13/17 11/14/17 11/15/17 06:59 06:59 06:59 Intake Total 950 1519 Output Total 600 Balance 950 919 Result Diagrams: 11/14/17 07:10 11/14/17 07:10 <Alton Rose - Last Filed: 11/14/17 09:24> - Objective Vital Signs & Weight: Vital Signs (12 hours) Temp Pulse Resp BP BP Pulse Ox 11/14/17 11:17 97.6 F 64 14 163/72 H 97 11/14/17 09:02 166/72 H 11/14/17 08:55 70 155/67 H 11/14/17 07:47 97 11/14/17 07:44 70 16 11/14/17 07:40 96.9 F L 68 12 96 11/14/17 07:39 96.9 F L 68 155/67 H 96 11/14/17 04:11 97.9 F 70 20 183/80 H 95 Weight Weight 86.636 kg I&O: 11/13/17 11/14/17 11/15/17 06:59 06:59 06:59 Intake Total 950 1519 421 Output Total 600 Balance 950 919 421 Result Diagrams: 11/14/17 07:10 11/14/17 07:10 <Maggie Carter - Last Filed: 11/14/17 14:29> Phys Exam - Physical Examination Constitutional: NAD HEENT: moist MMs, sclera anicteric Respiratory: no wheezing, clear to auscultation bilateral Cardiovascular: RRR 2/6 systolic murmur Gastrointestinal: soft, non-tender Musculoskeletal: no edema, pulses present Neurological: non-focal, moves all 4 limbs Psychiatric: normal affect, A&O x 3 Skin: no rash, cap refill <2 seconds <Alton Rose - Last Filed: 11/14/17 09:24> Dx/Plan (1) Acute respiratory failure with hypoxia Code(s): J96.01 - ACUTE RESPIRATORY FAILURE WITH HYPOXIA Status: Resolved (2) Community acquired pneumonia Code(s): J18.9 - PNEUMONIA, UNSPECIFIED ORGANISM Status: Acute (3) NSTEMI (non-ST elevated myocardial infarction) Code(s): I21.4 - NON-ST ELEVATION (NSTEMI) MYOCARDIAL INFARCTION Status: Suspected (4) Combined systolic and diastolic congestive heart failure Code(s): I50.40 - UNSP COMBINED SYSTOLIC AND DIASTOLIC (CONGESTIVE) HRT FAIL Status: Chronic (5) HLD (hyperlipidemia) Code(s): E78.5 - HYPERLIPIDEMIA, UNSPECIFIED Status: Chronic (6) Anxiety and depression Code(s): F41.9 - ANXIETY DISORDER, UNSPECIFIED; F32.9 - MAJOR DEPRESSIVE DISORDER, SINGLE EPISODE, UNSPECIFIED Status: Chronic (7) DM type 2 (diabetes mellitus, type 2) Status: Chronic QualifierTitle: Diabetes mellitus complication status: with kidney complications Diabetes mellitus complication detail: with chronic kidney disease Diabetes mellitus senior living insulin use: unspecified senior living insulin use status Chronic kidney disease stage: stage 3 (moderate) Qualified Code(s): E11.22 - Type 2 diabetes mellitus with diabetic chronic kidney disease; N18.3 - Chronic kidney disease, stage 3 (moderate); N18.3 - Chronic kidney disease, stage 3 (moderate) (8) GERD (gastroesophageal reflux disease) Code(s): K21.9 - GASTRO-ESOPHAGEAL REFLUX DISEASE WITHOUT ESOPHAGITIS Status: Chronic (9) Hypertension Code(s): I10 - ESSENTIAL (PRIMARY) HYPERTENSION Status: Chronic QualifierTitle: Hypertension type: essential hypertension Qualified Code( s): I10 - Essential (primary) hypertension (10) Physical deconditioning Code(s): R53.81 - OTHER MALAISE Status: Chronic (11) Chronic kidney disease, stage III (moderate) Code(s): N18.3 - CHRONIC KIDNEY DISEASE, STAGE 3 (MODERATE) Status: Chronic (12) Vertebral fracture Code(s): [id number] - Status: Acute QualifierTitle: Encounter type: subsequent encounter Lumbar vertebra fracture level: L2 - Plan Plan: 1. Acute hypoxic respiratory failure- Resolved - Off BiPAP and weaning oxygen. currently on 1-2 L NC. - transfer to Tele - VQ scan and CXR negative. - Will attempt to perform PA/Lateral CXR - NS stopped since appears to be due to CHF. will gently diureses with additional dose of lasix IV 20 mg. - has significant second hand smoke exposure and could have component of COPD. will switch to PO prednisone 2. Acute bacterial bronchitis - Rocephin/azithro day 3, continue abx - WBC returned to normal - Associated with acute hypoxic respiratory failure s/p BiPAP - Strep pneumo urinary ag negative. - Procalcitonin unremarkable. 3. NSTEMI vs. Demand ischemia - receiving therapeutic lovenox for presumed PE (ruled out) - Troponin peaked at 0.497 but has since trended down. - will await recommendations from cardiology. continue renally dosed lovenox. 4. 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 - Strict I&O, daily weights. - CXR concerning for CHF. 5. HTN home meds 6. DM type II - Mild SSI - Continue home medications - ACHS accuchecks - likely elevated 2/2 steroids will hopefully improve with PO steroids. 7. Depression and Anxiety - Continue home medications - appears to be depressed and has significant psychosocial stress. 8. GERD -PO pepcid 9. OA - Tylenol for pain PRN/continue home medications once tolerating PO 10. Deconditioning - PT/TO 11. Chronic kidney disease stage III - Cr 1.7 with GFR of 22 placing patient in stage 4 CKD - has improved to baseline but will monitor closely since giving lasix 12. Acute L2 vertebral fracture - s/p fall day prior to admission - restarted lyrica and APAP #3. - monitor mental status. <Alton Rose - Last Filed: 11/14/17 09:24> (1) Acute respiratory failure with hypoxia Code(s): J96.01 - ACUTE RESPIRATORY FAILURE WITH HYPOXIA Status: Resolved (2) Community acquired pneumonia Code(s): J18.9 - PNEUMONIA, UNSPECIFIED ORGANISM Status: Acute (3) Combined systolic and diastolic congestive heart failure Code(s): I50.40 - UNSP COMBINED SYSTOLIC AND DIASTOLIC (CONGESTIVE) HRT FAIL Status: Chronic (4) HLD (hyperlipidemia) Code(s): E78.5 - HYPERLIPIDEMIA, UNSPECIFIED Status: Chronic (5) Anxiety and depression Code(s): F41.9 - ANXIETY DISORDER, UNSPECIFIED; F32.9 - MAJOR DEPRESSIVE DISORDER, SINGLE EPISODE, UNSPECIFIED Status: Chronic (6) DM type 2 (diabetes mellitus, type 2) Status: Chronic Qualifiers: Diabetes mellitus complication status: with kidney complications Diabetes mellitus complication detail: with chronic kidney disease Diabetes mellitus intermediate manager insulin use: unspecified intermediate manager insulin use status Chronic kidney disease stage: stage 3 (moderate) Qualified Code(s): E11.22 - Type 2 diabetes mellitus with diabetic chronic kidney disease; N18.3 - Chronic kidney disease, stage 3 (moderate); N18.3 - Chronic kidney disease, stage 3 (moderate) (7) GERD (gastroesophageal reflux disease) Code(s): K21.9 - GASTRO-ESOPHAGEAL REFLUX DISEASE WITHOUT ESOPHAGITIS Status: Chronic (8) Hypertension Code(s): I10 - ESSENTIAL (PRIMARY) HYPERTENSION Status: Chronic Qualifiers: Hypertension type: essential hypertension Qualified Code(s): I10 - Essential (primary) hypertension (9) Physical deconditioning Code(s): R53.81 - OTHER MALAISE Status: Chronic (10) Chronic kidney disease, stage III (moderate) Code(s): N18.3 - CHRONIC KIDNEY DISEASE, STAGE 3 (MODERATE) Status: Chronic (11) Vertebral fracture Code(s): [id number] - Status: Acute Qualifiers: Encounter type: subsequent encounter Lumbar vertebra fracture level: L2 <Maggie Carter - Last Filed: 11/14/17 14:29> Attending Addendum - Attending Addendum Date/Time: 11/14/17 8624 I personally evaluated the patient and discussed the management with Dr. Rose. I agree with the History, Examination, Assessment and Plan documented above with any addition or exceptions noted below. Solumedrol will be changed to prednisone. Cardiac enzymes have peaked and are down-trending. Appreciate cardiology recs. Will adjust meds for better blood sugar control. Pt's PCP says she has not been able to take insulin due to hypoglycemiaat home. Pt is feeling better. Will wean o2. <Maggie Carter - Last Filed: 11/14/17 14:29>
[2017-11-14] MEDS ORDERED: predniSONE 20 MG TAB PO SCH (09:30)
[2017-11-14] MEDS ORDERED: Furosemide 20 MG/2 ML VIAL SLOW IVP SCH ×2 (09:30→14:00)
[2017-11-14] MEDS ORDERED: Pregabalin 25 MG CAP PO SCH (21:00)
[2017-11-14] MEDS: Azithromycin 500 MG in Sodium Chloride 0.9% 250 ML 250 ML IVPB SCH (21:45)
[2017-11-14] MEDS: Pregabalin 50 MG CAP PO SCH (21:46)
[2017-11-14] MEDS: cefTRIAXone\\ROCEPHIN 1 GM, Syringe 0.4 ML in Sterile Water 9.6 ML SLOW IVP SCH (22:47)
[2017-11-15 05:24] LABS: Anion Gap 13 mmol/L (10-20); BUN (Urea Nitrogen) 51 mg/dL (9.8-20.1); Calc. Creatinine Clearance 33 mL/min (70-130); Calcium 9.6 mg/dL (7.8-10.44); Carbon Dioxide 29 mmol/L (23-31); Chloride 101 mmol/L (98-107); Estimated GFR-MDRD 30; Glucose 239 mg/dL (83-110); Potassium 3.9 mmol/L (3.5-5.1); Sodium 139 mmol/L (136-145)
--- NOTE | 2017-11-15 06:54 | PDOC.FM ---
- Subjective Subjective: Pt seen at bedside in NAD. QUINN overnight, states she feels better today but was upset with blood draws this morning. Pt does c/o some back pain and notes son is bringing back brace today. Pt denies CP, SOB, abd pain, NVD. - Objective MAR Reviewed: Yes Vital Signs & Weight: Vital Signs (12 hours) Temp Pulse Resp BP BP Pulse Ox 11/15/17 04:00 97.7 F 76 15 187/52 H 95 11/15/17 02:54 97 11/15/17 00:56 12 11/14/17 21:49 135/87 11/14/17 21:48 75 135/87 11/14/17 20:00 97.4 F L 75 20 135/87 95 11/14/17 19:28 74 16 96 Weight Weight 86.636 kg I&O: 11/13/17 11/14/17 11/15/17 06:59 06:59 06:59 Intake Total 950 1519 1403 Output Total 600 Balance 683 241 2356 Result Diagrams: 11/14/17 07:10 11/15/17 04:43 <Raheem Pompa - Last Filed: 11/15/17 09:15> - Objective Vital Signs & Weight: Vital Signs (12 hours) Temp Pulse Resp BP Pulse Ox 11/15/17 09:26 97.5 F L 69 20 181/76 H 98 11/15/17 07:32 71 16 98 11/15/17 04:00 97.7 F 76 15 187/52 H 95 11/15/17 02:54 97 11/15/17 00:56 12 Weight Weight 84.187 kg I&O: 11/14/17 11/15/17 11/16/17 06:59 06:59 06:59 Intake Total 1519 1403 510 Output Total 600 450 Balance 919 1403 60 Result Diagrams: 11/14/17 07:10 11/15/17 04:43 <Sherley Nagel - Last Filed: 11/15/17 10:50> Phys Exam - Physical Examination Constitutional: NAD HEENT: moist MMs Respiratory: no wheezing, clear to auscultation bilateral Cardiovascular: RRR 2/6 holosystolic murmur LSB Gastrointestinal: soft, non-tender Musculoskeletal: pulses present trace edema Neurological: moves all 4 limbs Psychiatric: normal affect Skin: cap refill <2 seconds <Raheem Pompa - Last Filed: 11/15/17 09:15> Dx/Plan (1) Acute on chronic diastolic (congestive) heart failure Code(s): I50.33 - ACUTE ON CHRONIC DIASTOLIC (CONGESTIVE) HEART FAILURE Status : Acute (2) NSTEMI (non-ST elevated myocardial infarction) Code(s): I21.4 - NON-ST ELEVATION (NSTEMI) MYOCARDIAL INFARCTION Status: Suspected (3) Chronic kidney disease, stage III (moderate) Code(s): N18.3 - CHRONIC KIDNEY DISEASE, STAGE 3 (MODERATE) Status: Chronic (4) DM type 2 (diabetes mellitus, type 2) Status: Chronic QualifierTitle: Diabetes mellitus complication status: with kidney complications Diabetes mellitus complication detail: with chronic kidney disease Diabetes mellitus intermediate frame tender insulin use: unspecified intermediate frame tender insulin use status Chronic kidney disease stage: stage 3 (moderate) Qualified Code(s): E11.22 - Type 2 diabetes mellitus with diabetic chronic kidney disease; N18.3 - Chronic kidney disease, stage 3 (moderate); N18.3 - Chronic kidney disease, stage 3 (moderate) (5) Hypertension Code(s): I10 - ESSENTIAL (PRIMARY) HYPERTENSION Status: Chronic QualifierTitle: Hypertension type: essential hypertension Qualified Code( s): I10 - Essential (primary) hypertension (6) Vertebral fracture Code(s): LGP0582 - Status: Acute QualifierTitle: Encounter type: subsequent encounter Lumbar vertebra fracture level: L2 - Plan Plan: 1. Acute hypoxic respiratory failure- Resolved - Off BiPAP and weaning oxygen. currently on 1-2 L NC. - stable on telemetry - VQ scan and CXR negative. - has significant second hand smoke exposure and could have component of COPD. will switch to PO prednisone 2. Acute bacterial bronchitis - Day 3 of abx, will discontinue rocephin and continue 5 day course of azithromycin - WBC returned to normal - Associated with acute hypoxic respiratory failure s/p BiPAP - Strep pneumo urinary ag negative. - Procalcitonin unremarkable. 3. NSTEMI vs. Demand ischemia - receiving therapeutic lovenox for presumed PE (ruled out) - Troponin peaked at 0.497 but has since trended down. - will await recommendations from cardiology. continue renally dosed lovenox. 4. 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 - Strict I&O, daily weights. - CXR concerning for CHF. 5. HTN - home meds 6. DM type II - Mild SSI - Continue home medications - ACHS accuchecks - likely elevated 2/2 steroids will hopefully improve with PO steroids. 7. Depression and Anxiety - Continue home medications - appears to be depressed and has significant psychosocial stress. 8. GERD -PO pepcid 9. OA - Tylenol for pain PRN/continue home medications once tolerating PO 10. Deconditioning - PT/TO 11. Chronic kidney disease stage III - Cr 1.7 with GFR of 22 placing patient in stage 4 CKD - has improved to baseline but will monitor closely since giving lasix 12. Acute lumbar vertebral fracture - s/p fall day prior to admission - restarted lyrica and APAP #3. - pt should be wearing back brace at all times, son to bring from home today - pt open to having HH PT but not placement for therapy, will try to coordinate with CM Disposition: Pt stable and improving. Continue to attempt to wean oxygen. Deescalate abx therapy. Cardiology on board, recs greatly appreciated. Attempt to coordinate care with CM for HH PT. Continue to monitor closely with possible discharge in the next 1-2 days. <Raheem Pompa - Last Filed: 11/15/17 09:15> Attending Addendum - Attending Addendum Date/Time: 11/15/17 1047 I personally evaluated the patient and discussed the management with Dr. Pompa. I agree with the History, Examination, Assessment and Plan documented above with any addition or exceptions noted below. CHF exac- symptoms improving. continue diuresis and wean O2 Vertebral compression fracture-discuss with NS as patient has not been wearing her brace. <Sherley Nagel - Last Filed: 11/15/17 10:50>
[2017-11-15] MEDS: predniSONE 20 MG TAB PO SCH (09:30)
[2017-11-15] MEDS: Aspirin 81 mg Enteric Coated Tablet PO SCH (09:30)
[2017-11-15] MEDS: Amlodipine 5 MG TAB PO SCH ×2 (09:30→21:21)
[2017-11-15] MEDS: Enoxaparin Sodium 100 MG/ML SYRINGE SC SCH (09:31)
[2017-11-15] MEDS: Carvedilol 25 MG TAB PO SCH ×2 (09:31→21:21)
[2017-11-15] MEDS: cloNIDine 0.1 MG TAB PO SCH ×2 (09:31→21:20)
[2017-11-15] MEDS: Escitalopram Oxalate 10 mg Tablet PO SCH (09:31)
[2017-11-15] MEDS: Multivitamin W/ Minerals 1 TAB PO SCH (09:32)
[2017-11-15] MEDS: Pregabalin 25 MG CAP PO SCH (09:32)
[2017-11-15] MEDS: Famotidine/PF 20 mg/2ml Vial SLOW IVP SCH (09:32)
[2017-11-15] MEDS: HumaLOG 300 UNITS/3 ML VIAL SC PRN ×3 (11:34→21:23)
[2017-11-15] MEDS: Acetaminophen 325 MG TAB PO PRN ×2 (14:41→21:21)
[2017-11-15] MEDS: Pregabalin 50 MG CAP PO SCH (21:20)
[2017-11-15] MEDS: Azithromycin 250 MG TAB PO SCH (21:21)
[2017-11-15] MEDS: Polyethylene Glycol 3350 17 GM Packet PO PRN (21:28)
[2017-11-15] MEDS: Zolpidem Tartrate 5 MG TAB PO PRN (22:37)
[2017-11-16] MEDS: Acetaminophen 325 MG TAB PO PRN ×3 (03:00→20:50)
--- NOTE | 2017-11-16 06:51 | PDOC.FM ---
- Subjective Subjective: Pt seen at bedside in NAD. QUINN overnight. Pt does c/o some nausea and constipation. Pt denies CP, SOB, dizziness, dysuria or frequency. Pt tolerated PO well. - Objective MAR Reviewed: Yes Vital Signs & Weight: Vital Signs (12 hours) Temp Pulse Resp BP Pulse Ox 11/16/17 04:00 97.5 F L 57 L 18 157/69 H 94 L 11/16/17 02:13 99 11/16/17 00:34 61 18 95 11/15/17 23:58 96 11/15/17 22:35 83 16 167/72 H 96 11/15/17 21:17 98.7 F 68 16 99 11/15/17 19:45 98.7 F 68 16 172/76 H 99 11/15/17 19:35 72 18 99 Weight Weight 83.143 kg I&O: 11/14/17 11/15/17 11/16/17 06:59 06:59 06:59 Intake Total 1519 1403 1110 Output Total 600 1750 Balance 919 1403 -640 Result Diagrams: 11/14/17 07:10 11/15/17 04:43 <Raheem Pompa - Last Filed: 11/16/17 09:12> - Objective Vital Signs & Weight: Vital Signs (12 hours) Temp Pulse Pulse Pulse Resp BP BP 11/16/17 13:22 97.8 F 60 18 11/16/17 09:26 98 F 68 11/16/17 08:32 68 70 193/80 H 165/68 H 11/16/17 07:15 11/16/17 07:14 60 16 11/16/17 04:00 97.5 F L 57 L 18 BP Pulse Ox 11/16/17 13:22 152/67 H 94 L 11/16/17 09:26 194/84 H 94 L 11/16/17 08:32 11/16/17 07:15 99 11/16/17 07:14 99 11/16/17 04:00 157/69 H 94 L Weight Weight 83.143 kg I&O: 11/15/17 11/16/17 11/17/17 06:59 06:59 06:59 Intake Total 1403 1110 Output Total 1750 Balance 1403 -640 Result Diagrams: 11/14/17 07:10 11/15/17 04:43 <NagelSherley Trice - Last Filed: 11/16/17 14:40> Phys Exam - Physical Examination Constitutional: NAD HEENT: moist MMs Respiratory: no wheezing mild bibasilar crackles Cardiovascular: RRR 2/6 holosystolic murmur LSB Gastrointestinal: soft, non-tender, positive bowel sounds Musculoskeletal: pulses present trace edema BL Neurological: non-focal, moves all 4 limbs Psychiatric: normal affect Skin: cap refill <2 seconds <Raheem Pompa - Last Filed: 11/16/17 09:12> Dx/Plan (1) Acute on chronic diastolic (congestive) heart failure Code(s): I50.33 - ACUTE ON CHRONIC DIASTOLIC (CONGESTIVE) HEART FAILURE Status : Acute (2) NSTEMI (non-ST elevated myocardial infarction) Code(s): I21.4 - NON-ST ELEVATION (NSTEMI) MYOCARDIAL INFARCTION Status: Suspected (3) Chronic kidney disease, stage III (moderate) Code(s): N18.3 - CHRONIC KIDNEY DISEASE, STAGE 3 (MODERATE) Status: Chronic (4) DM type 2 (diabetes mellitus, type 2) Status: Chronic QualifierTitle: Diabetes mellitus complication status: with kidney complications Diabetes mellitus complication detail: with chronic kidney disease Diabetes mellitus termite control representative insulin use: unspecified long-term insulin use status Chronic kidney disease stage: stage 3 (moderate) Qualified Code(s): E11.22 - Type 2 diabetes mellitus with diabetic chronic kidney disease; N18.3 - Chronic kidney disease, stage 3 (moderate); N18.3 - Chronic kidney disease, stage 3 (moderate) (5) Hypertension Code(s): I10 - ESSENTIAL (PRIMARY) HYPERTENSION Status: Chronic QualifierTitle: Hypertension type: essential hypertension Qualified Code( s): I10 - Essential (primary) hypertension (6) Vertebral fracture Code(s): [id number] - Status: Acute QualifierTitle: Encounter type: subsequent encounter Lumbar vertebra fracture level: L2 - Plan Plan: 1. Acute hypoxic respiratory failure- Resolved - Off BiPAP and weaning oxygen. currently on 0.5 L NC. - stable on telemetry - VQ scan and CXR negative. - has significant second hand smoke exposure and could have component of COPD. PO prednisone for 5 days. 2. Acute bacterial bronchitis - Day 4 of abx, continue 5 day course of azithromycin - WBC returned to normal - Associated with acute hypoxic respiratory failure s/p BiPAP - Strep pneumo urinary ag negative. - Procalcitonin unremarkable. 3. NSTEMI vs. Demand ischemia - receiving therapeutic lovenox for presumed PE (ruled out) - Troponin peaked at 0.497 but has since trended down. - likely demand ischemia 4. 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 - Strict I&O, daily weights. - CXR concerning for CHF but clinically has improved with lasix 5. HTN - home meds 6. DM type II - Mild SSI - Continue home medications - ACHS accuchecks - likely elevated 2/2 steroids will hopefully improve with PO steroids. 7. Depression and Anxiety - Continue home medications - appears to be depressed and has significant psychosocial stress. 8. GERD -PO pepcid 9. OA - Tylenol for pain PRN/continue home medications once tolerating PO 10. Deconditioning - PT/TO 11. Chronic kidney disease stage III - Cr 1.7 with GFR of 22 placing patient in stage 4 CKD - has improved to baseline but will monitor closely since giving lasix 12. Acute lumbar vertebral fracture - s/p fall day prior to admission - restarted lyrica and APAP #3. - pt should be wearing back brace at all times, son to bring from home today - pt open to having HH PT but not placement for therapy, will try to coordinate with CM - neurosurgery consulted to reassess pt for TLSO brace 13. Constipation - home miralax - if no relief, will attempt fleets enema Disposition: Pt stable and improving. Continue to wean oxygen. Cardiology and neurosurgery on board, recs greatly appreciated. Attempt to coordinate care with CM for HH PT. Continue to monitor closely with possible discharge today. <Raheem Pompa - Last Filed: 11/16/17 09:12> Attending Addendum - Attending Addendum Date/Time: 11/16/17 1030 I personally evaluated the patient and discussed the management with Dr. Pompa I agree with the History, Examination, Assessment and Plan documented above with any addition or exceptions noted below. Bronchitis-continue azithro and steroids diastolic CHF exac- patient O2 sats in the 88-94% on RA. Give a repeat dose of lasix and wean o2 as tolerated Compression fx- appreciate NS recs Deconditioning- discussed that she would benefit from short term stay at SNF- she is agreeable to go to [place]. to assist. <Sherley Nagel - Last Filed: 11/16/17 14:40>
[2017-11-16] MEDS ORDERED: Fleet Enema 133 ML BOT PR SCH (08:30)
[2017-11-16] MEDS ORDERED: Enoxaparin Sodium 60 MG/0.6 ML SYRINGE SC SCH ×2 (09:00→14:49)
[2017-11-16] MEDS ORDERED: Azithromycin 250 MG TAB PO SCH (09:00)
[2017-11-16] MEDS: predniSONE 20 MG TAB PO SCH (09:29)
[2017-11-16] MEDS: Aspirin 81 mg Enteric Coated Tablet PO SCH (09:30)
[2017-11-16] MEDS: Carvedilol 25 MG TAB PO SCH ×2 (09:30→20:49)
[2017-11-16] MEDS: Escitalopram Oxalate 10 mg Tablet PO SCH (09:30)
[2017-11-16] MEDS: Azithromycin 250 MG TAB PO SCH (09:30)
[2017-11-16] MEDS: Multivitamin W/ Minerals 1 TAB PO SCH (09:30)
[2017-11-16] MEDS: Amlodipine 5 MG TAB PO SCH ×2 (09:30→20:49)
[2017-11-16] MEDS: Famotidine 20 MG TAB PO SCH (09:30)
[2017-11-16] MEDS: cloNIDine 0.1 MG TAB PO SCH ×2 (09:30→20:49)
[2017-11-16] MEDS: Polyethylene Glycol 3350 17 GM Packet PO SCH (09:31)
[2017-11-16] MEDS: Ezetimibe 10 MG TAB PO SCH ×2 (09:50→09:51)
[2017-11-16] MEDS: Enoxaparin Sodium 100 MG/ML SYRINGE SC SCH (09:52)
--- NOTE | 2017-11-16 11:02 | CON ---
DATE OF CONSULTATION: 11/16/2017 This is a 50-minute initial patient consult in which greater than 50% of the exam was spent in counse ling and coordinating patient's care. The remainder of the exam was spent in review of patient's [facility] records and imaging studies. CHIEF COMPLAINT: Status post fall from a standing height with L3 burst fracture. HISTORY OF PRESENT ILLNESS: Ms. Moralez is an 87-year-old female who was admitted to [facility] for CHF and hypoxemia. On 11/11/2017, the patient fell from a standing height when she was attem pting to walk to her house changing directions to her doorway. She states she has noticed some laure ce issues and does use a walker when at home. She did present to the emergency room and at that time , again was noted to have an L3 burst fracture, but was neurologically intact. The patient was fitte d for her clamps, TLSO brace and was discharged home, but over the course of few days, again develope d an acute exacerbation of CHF and hypoxemia, which required her to be admitted. She states before h er fall she was experiencing bilateral posterior leg pain, but again states she has no leg pain curre ntly. She has not noticed any weakness into the legs or her arms. She does state, however, that she does not like wearing the brace since it is uncomfortable. Review of the patient's lumbar spine CT shows what appears to be an acute L3 burst fracture and stable old L1 vertebral body fracture. PHYSICAL EXAMINATION: The patient is awake, alert, and appropriate. She has full strength in the bi lateral upper and bilateral lower extremities with intact sensation to light touch throughout. She h as no worrisome myelopathic features on exam including negative Hernandez's bilaterally and no increase d tone. She is currently at 30 degrees in bed and her clamps, TLSO brace by her bedside. IMPRESSION AND DIAGNOSIS: Status post fall from a standing height with L3 burst fracture. PLAN: I have discussed the patient's case with Dr. Stewart. At this time, we will plan treat the kade newell's fracture in a brace. She is not a good surgical candidate given a "poor quality of her bone." I discussed this at great length with the patient and she states she is not in any way willing to u [facility] surgery. I will have Orthotics team refit the brace for her, so that it will attempt to make her more comfortable and hope that she will be more compliant with her brace. Please call with any q uestions or changes in the patient's neurologic status. Otherwise, we will follow up with the angela murillo in 4 weeks with upright lumbar and thoracic spine x-rays. Again, the patient should be wearing her brace anytime. Her head of bed is greater than 30 degrees or when she is out of bed. Please call w bowen any questions.
[2017-11-16] MEDS ORDERED: Furosemide 20 MG TAB PO SCH (11:30)
[2017-11-16] MEDS: Pregabalin 25 MG CAP PO SCH (13:23)
[2017-11-16] MEDS: HumaLOG 300 UNITS/3 ML VIAL SC PRN ×3 (13:26→20:50)
[2017-11-16] MEDS: Pregabalin 50 MG CAP PO SCH (20:49)
[2017-11-16] MEDS: Zolpidem Tartrate 5 MG TAB PO PRN (20:50)
[2017-11-17] MEDS: Acetaminophen 325 MG TAB PO PRN ×2 (03:48→13:28)
[2017-11-17 05:28] LABS: Hemoglobin 11.9 g/dL (12.0-16.0); Platelet Count 199 thou/uL (130-400)
--- NOTE | 2017-11-17 06:50 | PDOC.FM ---
- Subjective Subjective: Pt seen at bedside in NAD. QUINN overnight. Pt notes she subjectively feels better. Pt states she does not want to wear the TLSO brace because it is uncomfortable. Pt denies CP, SOB, abd pain, NVD. - Objective Vital Signs & Weight: Vital Signs (12 hours) Temp Pulse Resp BP Pulse Ox 11/17/17 04:00 97.4 F L 66 20 170/82 H 92 L 11/17/17 03:19 97 11/17/17 01:50 66 18 5 L 11/16/17 20:34 97.9 F 72 16 159/72 H 96 Weight Weight 80.649 kg I&O: 11/15/17 11/16/17 11/17/17 06:59 06:59 06:59 Intake Total 1403 1110 1420 Output Total 1750 2700 Balance 1403 -919 -1280 Result Diagrams: 11/17/17 04:58 11/17/17 04:58 <Raheem Pompa - Last Filed: 11/17/17 08:46> - Objective Vital Signs & Weight: Vital Signs (12 hours) Temp Pulse Resp BP BP Pulse Ox 11/17/17 08:55 98.3 F 18 97 11/17/17 08:38 137/66 11/17/17 08:37 65 137/66 11/17/17 04:00 97.4 F L 66 20 170/82 H 92 L 11/17/17 03:19 97 11/17/17 01:50 66 18 5 L Weight Weight 80.649 kg I&O: 11/16/17 11/17/17 11/18/17 06:59 06:59 06:59 Intake Total 1110 1420 Output Total 1750 2700 Balance -640 1280 Result Diagrams: 11/17/17 04:58 11/17/17 04:58 <Sherley Nagel - Last Filed: 11/17/17 10:51> Phys Exam - Physical Examination Constitutional: NAD HEENT: sclera anicteric Respiratory: no wheezing mild bibasilar crackles improving Cardiovascular: RRR 2/6 holosystolic murmur Gastrointestinal: soft, non-tender, positive bowel sounds Musculoskeletal: pulses present Neurological: moves all 4 limbs Psychiatric: normal affect <Raheem Pompa - Last Filed: 11/17/17 08:46> Dx/Plan (1) Acute on chronic diastolic (congestive) heart failure Code(s): I50.33 - ACUTE ON CHRONIC DIASTOLIC (CONGESTIVE) HEART FAILURE Status : Acute (2) NSTEMI (non-ST elevated myocardial infarction) Code(s): I21.4 - NON-ST ELEVATION (NSTEMI) MYOCARDIAL INFARCTION Status: Suspected (3) Chronic kidney disease, stage III (moderate) Code(s): N18.3 - CHRONIC KIDNEY DISEASE, STAGE 3 (MODERATE) Status: Chronic (4) DM type 2 (diabetes mellitus, type 2) Status: Chronic QualifierTitle: Diabetes mellitus complication status: with kidney complications Diabetes mellitus complication detail: with chronic kidney disease Diabetes mellitus long term care pharmacist insulin use: unspecified long term care pharmacist insulin use status Chronic kidney disease stage: stage 3 (moderate) Qualified Code(s): E11.22 - Type 2 diabetes mellitus with diabetic chronic kidney disease; N18.3 - Chronic kidney disease, stage 3 (moderate); N18.3 - Chronic kidney disease, stage 3 (moderate) (5) Hypertension Code(s): I10 - ESSENTIAL (PRIMARY) HYPERTENSION Status: Chronic QualifierTitle: Hypertension type: essential hypertension Qualified Code( s): I10 - Essential (primary) hypertension (6) Vertebral fracture Code(s): [id number] - Status: Acute QualifierTitle: Encounter type: subsequent encounter Lumbar vertebra fracture level: L2 - Plan Plan: 1. Acute hypoxic respiratory failure- Resolved - Off BiPAP and weaning oxygen. currently on 0.5 L NC. - stable on telemetry - VQ scan and CXR negative. - has significant second hand smoke exposure and could have component of COPD. PO prednisone for 5 days. 2. Acute bacterial bronchitis - Day 5 of abx, continue 5 day course of azithromycin - WBC returned to normal - Associated with acute hypoxic respiratory failure s/p BiPAP - Strep pneumo urinary ag negative. - Procalcitonin unremarkable. 3. NSTEMI vs. Demand ischemia - receiving therapeutic lovenox for presumed PE (ruled out) - Troponin peaked at 0.497 but has since trended down. - likely demand ischemia 4. 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 - Strict I&O, daily weights. - CXR concerning for CHF but clinically has improved with lasix - Discussed with Dr. Harvey this AM and will start pt on low dose Lasix 20 mg PO daily 5. HTN - home meds 6. DM type II - Mild SSI - Continue home medications - ACHS accuchecks - likely elevated 2/2 steroids will hopefully improve with PO steroids. 7. Depression and Anxiety - Continue home medications - appears to be depressed and has significant psychosocial stress. 8. GERD -PO pepcid 9. OA - Tylenol for pain PRN/continue home medications once tolerating PO 10. Deconditioning - PT/TO 11. Chronic kidney disease stage III - Cr 1.7 with GFR of 22 placing patient in stage 4 CKD - has improved to baseline but will monitor closely since giving lasix 12. Acute lumbar vertebral fracture - s/p fall day prior to admission - restarted lyrica and APAP #3. - pt should be wearing back brace at all times - CM on board to aid with placement at SNF - neurosurgery consulted to reassess pt for TLSO brace, agree to have pt wear abdominal binder when out of bed to promote compliance 13. Constipation - home miralax - if no relief, will attempt fleets enema Disposition: Pt stable and improving. Off oxygen this AM. Cardiology and neurosurgery on board, recs greatly appreciated. Pt would like to go to SNF at [place] or [facility], [facility] for discharge upon approval. <Raheem Pompa - Last Filed: 11/17/17 08:46> Attending Addendum - Attending Addendum Date/Time: 11/17/17 1010 I personally evaluated the patient and discussed the management with Dr. Pompa. I agree with the History, Examination, Assessment and Plan documented above with any addition or exceptions noted below. Acute on chronic CHF, diastolic- improved and ready for transfer to SNF Deconditioning- patient unable to get out of bed today for ambulation- SNF at [facility]. Hypoxia- now sating 92-97% on RA- will have order for O2 if needed at SNF Vertebral fx- patient refuses to wear TLSO so is now in an abdominal binder. -ready for transfer to SNF. <Sherley Nagel - Last Filed: 11/17/17 10:51>
[2017-11-17] MEDS: predniSONE 20 MG TAB PO SCH (08:35)
[2017-11-17] MEDS: Escitalopram Oxalate 10 mg Tablet PO SCH (08:36)
[2017-11-17] MEDS: Aspirin 81 mg Enteric Coated Tablet PO SCH (08:37)
[2017-11-17] MEDS: Amlodipine 5 MG TAB PO SCH (08:37)
[2017-11-17] MEDS: Carvedilol 25 MG TAB PO SCH (08:37)
[2017-11-17] MEDS: Azithromycin 250 MG TAB PO SCH (08:37)
[2017-11-17] MEDS: Multivitamin W/ Minerals 1 TAB PO SCH (08:37)
[2017-11-17] MEDS: cloNIDine 0.1 MG TAB PO SCH (08:38)
[2017-11-17] MEDS: Famotidine 20 MG TAB PO SCH (08:39)
[2017-11-17] MEDS: HumaLOG 300 UNITS/3 ML VIAL SC PRN ×2 (08:41→13:09)
[2017-11-17] MEDS: Polyethylene Glycol 3350 17 GM Packet PO SCH (08:42)
[2017-11-17] MEDS ORDERED: Ezetimibe 10 MG TAB PO SCH (08:45)
[2017-11-17] MEDS: Pregabalin 25 MG CAP PO SCH (10:57)
--- NOTE | 2017-11-17 12:01 | DIS-2 ---
DATE OF ADMISSION: 11/12/2017 DATE OF DISCHARGE: 11/17/2017 RESIDENT: Dr. Raheem Pompa ADMITTING ATTENDING: Dr. Maggie Carter DISCHARGE ATTENDING: Dr. Sherley Nagel CONSULTATIONS: 1. Cardiology, Dr. Jessenia Angulo and Dr. John Harvey. 2. Pulmonology, Dr. Nba Solo. 3. Neurosurgery, Dr. Isauro Stewart. 4. Case management. 5. PT. PROCEDURES: 1. Transthoracic echocardiogram performed on 11/12/2017 showed an ejection fraction of 55-60%, left ventricular hypertrophy, some diastolic dysfunction, mild aortic stenosis and elevated pulmonary reed ry pressure. 2. Chest x-ray performed on 11/12/2017 showed congestive changes with evidence of early alveolar meena ma. 3. VQ scan performed on 11/13/2017 showed a low probability for pulmonary embolism. 4. Repeat chest x-ray on 11/13/2017 showed mild CHF with improvement. PRIMARY DIAGNOSES: 1. Acute hypoxic respiratory secondary to congestive heart failure exacerbation, resolved. 2. Heart failure with preserved ejection fraction of 55-60% exacerbation, resolved. 3. Elevated pulmonary artery pressure. 4. Acute bronchitis, resolved. 5. Elevated troponin secondary to demand ischemia. 6. Acute L3 vertebral fracture. 7. Chronic kidney disease stage 4. 8. Osteoarthritis. 9. Hypertension. 10. Type 2 diabetes mellitus. 11. Depression. 12. Gastroesophageal reflux disease. DISCHARGE MEDICATIONS: 1. Furosemide 20 mg p.o. q.a.m. 2. Zetia 10 mg p.o. daily. 3. Aspirin 81 mg p.o. daily. 4. Carvedilol 25 mg p.o. b.i.d. 5. Amlodipine 5 mg p.o. b.i.d. 6. Tylenol #3 one tab p.o. q.6h. p.r.n. 7. Pregabalin 25 mg p.o. q.a.m. 8. Pregabalin 50 mg p.o. q.p.m. 9. Nitroglycerin 0.4 mg sublingual p.r.n. chest pain. 10. Multivitamin daily. 11. Clonidine 0.2 mg p.o. b.i.d. 12. Zofran 4 mg p.o. q.8 hours p.r.n. 13. Zolpidem 5 mg p.o. at bedtime p.r.n. 14. Pantoprazole 40 mg p.o. daily. 15. Escitalopram 20 mg p.o. daily. 16. MiraLax 17 grams p.o. q.2 days p.r.n. HISTORY OF PRESENT ILLNESS AND HOSPITAL COURSE: The patient is a very pleasant 87-year-old female initially presented with shortness of breath, cough, and a fall prior to the day of admission . The patient prior to admission, was found to have an acute L3 vertebral fracture and was fitted wi th a TLSO brace by Neurosurgery in the emergency department and discharged home. The following day, the patient presented with increasing shortness of breath and cough. The patient was thought to be i n a CHF exacerbation and also have acute bronchitis and was therefore treated for both. The patient was initially placed on IV Lasix with strict monitoring of intake and output and responded extremely well. The patient was also subsequently treated with a 5-day course of azithromycin and prednisone. Throughout her hospital stay the patient struggled with hypoxia on initial presentation, requiring B iPAP and subsequently transitioned to nasal cannula and eventually room air. The patient, however, u lonny out of bed activities would desat into the upper 80s to low 90s. It was determined that the kimberley ent would benefit from continued physical therapy and supplemental oxygen as needed during therapy an d was therefore deemed as a candidate for intermediate facility. Regarding the patient's vertebral fracture, the patient was very noncompliant with her TLSO brace, cl aiming it was extremely uncomfortable and led to bruising and discomfort. Neurosurgery was consulted in order to reevaluate the patient and initially recommended that the patient wear the TLSO brace at all times. With continued noncompliance, however, Neurosurgery recommended that the patient be fitt ed with an abdominal binder while out of bed in order to attempt to encourage compliance and prevent complications. The patient's hospital course was otherwise uncomplicated. DISPOSITION: Guarded. DISCHARGE INSTRUCTIONS: 1. Location: [facility] nursing [facility]. 2. Activity: As tolerated with abdominal binder and physical therapy assistance. 3. Diet: Consistent carbohydrates and heart healthy diet with fluid restriction less than 2 liters. 4. Followup: The patient was instructed to follow up with her primary care physician, Dr. Stacy arrieta within 1-2 weeks. The patient was also scheduled to follow up with physicians at [facility]. The patient also has a followup appointment with Dr. Stewart with Neurosurger y in 3-4 weeks for followup on her lumbar fracture.
[2017-11-17 13:18] VITALS: BP 139/62; TEMP 98.1
[2017-11-18] MEDS ORDERED: Furosemide 20 MG TAB PO SCH (09:00)
== END 2017-11-17 14:17 | DRG 291 ==
LOC: ERS 16:38 → IMCU/EMU 18:40 → 2NO 11-13 13:33
PROVIDERS: ADMIT Family Medicine; ATTEND Family Medicine
PROC: 5A09357 Assistance with Respiratory Ventilation, Less than 24 Consecutive Hours, Continuous Positive Airway Pressure (ICD-10-PCS; principal; 2017-11-12)
DX: I13.0 Hypertensive heart and chronic kidney disease with heart failure and stage 1 through stage 4 chronic kidney disease, or unspecified chronic kidney disease (principal); J96.01 Acute respiratory failure with hypoxia; I50.33 Acute on chronic diastolic (congestive) heart failure; N18.4 Chronic kidney disease, stage 4 (severe); S32.031A Stable burst fracture of third lumbar vertebra, initial encounter for closed fracture; E11.22 Type 2 diabetes mellitus with diabetic chronic kidney disease; J20.9 Acute bronchitis, unspecified; I24.8 Other forms of acute ischemic heart disease; K21.9 Gastro-esophageal reflux disease without esophagitis; F32.9 Major depressive disorder, single episode, unspecified; M19.90 Unspecified osteoarthritis, unspecified site; W18.30XA Fall on same level, unspecified, initial encounter; I25.10 Atherosclerotic heart disease of native coronary artery without angina pectoris; G25.81 Restless legs syndrome; F41.9 Anxiety disorder, unspecified; K59.00 Constipation, unspecified; Z88.1 Allergy status to other antibiotic agents; Z88.5 Allergy status to narcotic agent; Z88.2 Allergy status to sulfonamides; Z79.82 Long term (current) use of aspirin; Z79.899 Other long term (current) drug therapy
CPT/HCPCS: 36415; 36416; 70450; 71045; 71046; 72100; 72125; 72128; 72131; 72170; 78582; 80048; 80053; 81003; 82553; 82565; 82805; 83605; 83880; 84145; 84484; 85014; 85018; 85025; 85049; 85379; 87086; 87899; 90471; 90682; 93005; 93306; 94640; 94660; 94760; 96360; 96365; 96375; A4216; A9540; A9558; G0008; G8978-GP-CL; G8979-GP-CJ; G8987-GO-CL; G8988-GO-CJ; J0456; J0696; J1650; J1940; J2405; J2920; J3475; J7050; J7506; J7611; J7620; L0639; Q0162; Q2036; S0028

== ENCOUNTER 2018-01-12 10:23 | Outpatient (CLI) | payer MEDICARE, OTHER ==
--- NOTE | 2018-01-12 11:51 | RAD ---
2 VIEWS LUMBAR SPINE: Date: 01/12/18 HISTORY: Follow-up fractures lumbar spine. COMPARISON: 12/15/17. FINDINGS: As noted on the prior exam, there are wedge-shaped compression fractures at the T12 and L1 vertebral bodies, as well as a compression fracture involving the L3 vertebral body. The degree of height loss has not significantly changed when compared to the prior exam. Again noted is Grade I anterolisthesis of L3 on L4. Multilevel degenerative changes are seen throughout the lower thoracic, as well as lumb ar spine, including facet degenerative changes. There is left convex scoliosis of the lumbar spine. Vascular calcifications are seen in the abdominal aorta and iliac arteries. IMPRESSION: 1. Stable height loss of compression fractures involving the T12, L1, and L3 vertebral bodies. 2. Stable Grade I anterolisthesis of L3 on L4. 3. Stable multilevel degenerative changes throughout the lower thoracic, as well as lumbar spine. POS: [facility]
== END 2018-01-12 10:24 | disposition home or self-care (01) ==
LOC: TBSIIMAG 10:23
PROVIDERS: ATTEND Surgery
DX: S22.008A Other fracture of unspecified thoracic vertebra, initial encounter for closed fracture (principal); M48.54XA Collapsed vertebra, not elsewhere classified, thoracic region, initial encounter for fracture; M43.16 Spondylolisthesis, lumbar region; M47.894 Other spondylosis, thoracic region; M47.896 Other spondylosis, lumbar region
CPT/HCPCS: 72100

== ENCOUNTER 2018-04-13 13:48 | Emergency (ER) | payer MEDICARE, OTHER ==
[2018-04-13 15:07] LABS: #Basophils 0.1 thou/uL (0.0-0.2); #Eosinphils 0.8 thou/uL (0.0-0.7); #Lymphocytes 1.5 thou/uL (1.20-3.40); #Monocytes 0.8 thou/uL (0.11-0.59); #Neutrophils 4.2 thou/uL (1.40-6.50); %Basophils 0.8 % (0.0-1.0); %Eosinophils 11.2 % (0.0-10.0); %Lymphocytes 20.1 % (21.0-51.0); %Monocytes 11.2 % (0.0-10.0); %Neutrophils 56.8 % (42.0-75.0); Hemoglobin 11.1 g/dL (12.0-16.0); Mean Corpuscular HGB CONC 34.4 g/dL (32.0-36.0); Mean Corpuscular Volume 90.2 fL (78.0-98.0); Mean Platelet Volume 7.5 fL (7.4-10.4); Platelet Count 220 thou/uL (130-400); RBC Distribution Width 12.5 % (11.5-14.5); Red Blood Cell (RBC) Count 3.58 mill/uL (4.20-5.40); White Blood Cell (WBC) Count 7.3 thou/uL (4.8-10.8)
[2018-04-13 15:28] LABS: ALT (SGPT) 8 U/L (8-55); AST (SGOT) 15 U/L (5-34); Albumin 3.7 g/dL (3.4-4.8); Alkaline Phosphatase 113 U/L (40-150); Anion Gap 12 mmol/L (10-20); BUN (Urea Nitrogen) 47 mg/dL (9.8-20.1); Bilirubin, Total 0.3 mg/dL (0.2-1.2); Calc. Creatinine Clearance 0 mL/min (70-130); Calcium 9.1 mg/dL (7.8-10.44); Carbon Dioxide 29 mmol/L (23-31); Chloride 99 mmol/L (98-107); Estimated GFR-MDRD 19; Globulin 3.7 g/dL (2.4-3.5); Glucose 189 mg/dL (83-110); Potassium 4.4 mmol/L (3.5-5.1); Protein, Total 7.4 g/dL (6.0-8.3); Sodium 136 mmol/L (136-145)
[2018-04-13 16:20] LABS: CKMB 0.8 ng/mL (0-6.6); Troponin I Less than 0.010 ng/mL (< 0.028)
[2018-04-13 17:42] LABS: Bilirubin Negative (Negative); Blood, Urine Negative (Negative); Clarity CLEAR (Clear); Glucose, Urine (Dipstick) Negative (Negative); Leukocyte Small (Negative); Nitrite Negative (Negative); Protein, Urine (Dipstick) Negative (Neg-Trace); Specific Gravity, Urine 1.009 (1.002-1.036); pH, Urine 6.5 (5.0-9.0)
[2018-04-13 17:55] LABS: Bacteria/HPF 1+ HPF (None Seen); Hyaline Casts/LPF 0-3 HYALINE CAST LPF (0-3 Hyaline); Pathc Cast-AUWi Flag 0.43 (0-2.49); RBC/HPF 0-3 HPF (0-3); Squamous Epithelial 0-3 HPF (0-3); WBC/HPF 0-3 HPF (0-3)
--- NOTE | 2018-04-13 18:28 | RAD ---
CHEST ONE VIEW: 04/13/18 HISTORY: Cough. COMPARISON: 11/12/17. FINDINGS: Enlarged cardiac silhouette. Pulmonary vessels are normal. There are diffuse interstitial reticulonod ular opacities, unchanged. No consolidation or mass. No pleural effusion. Stable elevation of the rig ht hemidiaphragm. No pneumothorax or osseous abnormalities. IMPRESSION: Diffuse reticulonodular opacities which are felt to be chronic. No acute cardiopulmonary process. POS: [facility]
--- NOTE | 2018-04-16 11:49 | EKG ---
Test Reason : Blood Pressure : / mmHG Vent. Rate : 068 BPM Atrial Rate : 068 BPM P-R Int : 182 ms QRS Dur : 140 ms QT Int : 446 ms P-R-T Axes : 027 -20 092 degrees QTc Int : 474 ms Normal sinus rhythm Left bundle branch block Abnormal ECG Confirmed by CRISTINA REYNOSO DO ([id number]), video tape editor MARVIN NAVARRETE ([id number]) on 04/16/2018 11:49:18 AM Referred By: Confirmed By:CRISTINA REYNOSO DO
== END 2018-04-13 18:36 | disposition home or self-care (01) ==
LOC: ERS 13:48
DX: R19.7 Diarrhea, unspecified (principal); R53.1 Weakness; I25.10 Atherosclerotic heart disease of native coronary artery without angina pectoris; E11.9 Type 2 diabetes mellitus without complications; K21.9 Gastro-esophageal reflux disease without esophagitis; F41.9 Anxiety disorder, unspecified; F32.9 Major depressive disorder, single episode, unspecified
CPT/HCPCS: 36415; 71045; 80053; 81003; 81015; 82553; 83880; 84484; 85025; 93005

== ENCOUNTER 2018-12-26 15:42 | Emergency (ER) | payer MEDICARE, OTHER ==
[2018-12-26 16:27] LABS: #Basophils 0.1 thou/uL (0.0-0.2); #Eosinphils 0.4 thou/uL (0.0-0.7); #Monocytes 1.1 thou/uL (0.11-0.59); #Neutrophils 6.3 thou/uL (1.40-6.50); %Basophils 0.7 % (0.0-1.0); %Eosinophils 4.4 % (0.0-10.0); %Lymphocytes 19.9 % (21.0-51.0); Hemoglobin 10.7 g/dL (12.0-16.0); Mean Corpuscular HGB CONC 32.3 g/dL (32.0-36.0); Mean Corpuscular Hemoglobin 30.2 pg (27.0-31.0); Mean Corpuscular Volume 93.3 fL (78.0-98.0); Mean Platelet Volume 7.9 fL (7.4-10.4); Platelet Count 191 thou/uL (130-400); RBC Distribution Width 13.2 % (11.5-14.5); Red Blood Cell (RBC) Count 3.56 mill/uL (4.20-5.40); White Blood Cell (WBC) Count 9.9 thou/uL (4.8-10.8)
[2018-12-26 16:56] LABS: ALT (SGPT) 11 U/L (8-55); AST (SGOT) 14 U/L (5-34); Albumin 3.6 g/dL (3.4-4.8); Alkaline Phosphatase 85 U/L (40-150); Anion Gap 14 mmol/L (10-20); BUN (Urea Nitrogen) 51 mg/dL (9.8-20.1); Bilirubin, Total 0.4 mg/dL (0.2-1.2); Calc. Creatinine Clearance 0 mL/min (70-130); Calcium 9.1 mg/dL (7.8-10.44); Carbon Dioxide 27 mmol/L (23-31); Chloride 99 mmol/L (98-107); Estimated GFR-MDRD 21; Globulin 2.9 g/dL (2.4-3.5); Glucose 200 mg/dL (83-110); Potassium 4.4 mmol/L (3.5-5.1); Protein, Total 6.5 g/dL (6.0-8.3); Sodium 136 mmol/L (136-145)
--- NOTE | 2018-12-26 17:12 | RAD ---
XR Chest 1 View Portable History: [Dyspnea] Comparison: Radiograph June 07, 2018 Findings: Heart size is enlarged. Mild edema. No pneumothorax. No significant effusion. No acute osse ous abnormality. Impression: Cardiomegaly and mild pulmonary edema.
--- NOTE | 2018-12-31 15:31 | EKG ---
Test Reason : Blood Pressure : / mmHG Vent. Rate : 064 BPM Atrial Rate : 064 BPM P-R Int : 200 ms QRS Dur : 154 ms QT Int : 488 ms P-R-T Axes : 040 -25 090 degrees QTc Int : 503 ms Sinus rhythm with occasional Premature ventricular complexes Left bundle branch block Abnormal ECG Confirmed by CARSON AVINA ([id number]), non linear editor MARVIN NAVARRETE ([id number]) on 12/31/2018 3:30:53 PM Referred By: Confirmed By:CARSON AVINA
== END 2018-12-26 19:06 | disposition home or self-care (01) ==
LOC: ERS 15:42
DX: E11.649 Type 2 diabetes mellitus with hypoglycemia without coma (principal); I25.10 Atherosclerotic heart disease of native coronary artery without angina pectoris; K21.9 Gastro-esophageal reflux disease without esophagitis; I10 Essential (primary) hypertension; F41.9 Anxiety disorder, unspecified; F32.9 Major depressive disorder, single episode, unspecified; Z79.899 Other long term (current) drug therapy; Z79.82 Long term (current) use of aspirin; Z79.4 Long term (current) use of insulin
CPT/HCPCS: 36415; 36416; 71045; 80053; 83880; 84484; 85025; 93005; 94760

== ENCOUNTER 2019-01-10 23:18 | Inpatient (IN) | payer MEDICARE, OTHER ==
[2019-01-10] MEDS ORDERED: Albuterol Sulfate 2.5 mg/3 ml Neb ONE (23:50)
[2019-01-10 23:58] LABS: #Eosinphils 0.2 thou/uL (0.0-0.7); #Lymphocytes 1.3 thou/uL (1.20-3.40); #Monocytes 0.7 thou/uL (0.11-0.59); #Neutrophils 8.9 thou/uL (1.40-6.50); %Basophils 0.4 % (0.0-1.0); %Eosinophils 1.9 % (0.0-10.0); %Lymphocytes 11.9 % (21.0-51.0); %Monocytes 6.4 % (0.0-10.0); %Neutrophils 79.3 % (42.0-75.0); Hemoglobin 11.4 g/dL (12.0-16.0); Mean Corpuscular HGB CONC 30.4 g/dL (32.0-36.0); Mean Corpuscular Volume 92.1 fL (78.0-98.0); Mean Platelet Volume 7.7 fL (7.4-10.4); Platelet Count 309 thou/uL (130-400); RBC Distribution Width 12.8 % (11.5-14.5); Red Blood Cell (RBC) Count 4.06 mill/uL (4.20-5.40); White Blood Cell (WBC) Count 11.2 thou/uL (4.8-10.8)
--- NOTE | 2019-01-10 23:58 | RAD ---
Portable upright frontal chest radiograph: 01/10/2019 Comparison 12/26/2018 HISTORY: Weakness and pain FINDINGS: Cardiac silhouette is prominent. Diffuse increased linear interstitial density noted, worse ruth ann since the prior examination, especially in the perihilar regions. Pulmonary vascular congestion noted. No focal consolidation or alveolar opacity. No pneumothorax. IMPRESSION: Prominent cardiac silhouette with pulmonary vascular congestion and perihilar interstitia l prominence. Findings may be related to interstitial edema in the proper clinical setting.
[2019-01-11 00:19] LABS: ALT (SGPT) 8 U/L (8-55); AST (SGOT) 16 U/L (5-34); Albumin 3.9 g/dL (3.4-4.8); Alkaline Phosphatase 105 U/L (40-150); Anion Gap 12 mmol/L (10-20); BUN (Urea Nitrogen) 42 mg/dL (9.8-20.1); Bilirubin, Total 0.6 mg/dL (0.2-1.2); CK (CPK) 39 U/L (29-168); Calc. Creatinine Clearance 0 mL/min (70-130); Calcium 9.8 mg/dL (7.8-10.44); Carbon Dioxide 31 mmol/L (23-31); Chloride 98 mmol/L (98-107); Estimated GFR-MDRD 24; Glucose 213 mg/dL (83-110); Lipase 19 U/L (8-78); Potassium 4.3 mmol/L (3.5-5.1); Protein, Total 7.9 g/dL (6.0-8.3); Sodium 137 mmol/L (136-145)
[2019-01-11] MEDS ORDERED: Nitroglycerin 2% Ointment 1 INCH/1 GM Packet ONE (00:21)
[2019-01-11] MEDS ORDERED: Furosemide 40 MG/4 ML VIAL ONE (00:21)
--- NOTE | 2019-01-11 00:52 | PDOC.FPRHP ---
- History of Present Illness Chief Complaint: SOB History of Present Illness: 88 yo F with PMH HFpEF, HTN, DM2, CKD4 presents to ED for shortness of breath. History difficult to obtain but patient reports SOB began this morning. Occurred at rest and worsened with exertion. Reports 2 pillow orthopnea that is new. Reports chills, increased weakness, BLE edema. Had some mild chest pain when SOB was at its worse, but none now. Reports 2 week h/o productive white cough that's worse at night. 1 week ago seen in ED for broken toe and cellulitis. Was taking doxycycline but then was switched to an unknown different antibiotic yesterday. ED Course: Lasix 40 IV, duoneb, nitro paste, therapeutic lovenox - Allergies/Adverse Reactions Allergies Allergy/AdvReac Type Severity Reaction Status Date / Time clarithromycin [From Biaxin] Allergy Unknown Verified 07/27/17 17:20 metoclopramide HCl Allergy Unknown Verified 07/27/17 17:20 [From Reglan] sulfamethoxazole Allergy Unknown Verified 07/27/17 17:20 [From Bactrim] trimethoprim [From Bactrim] Allergy Unknown Verified 07/27/17 17:20 levofloxacin [From Levaquin] AdvReac Mild Nausea Verified 07/27/17 17:20 - Home Medications Medication Instructions Recorded Confirmed Type Polyethylene Glycol 3350 [Miralax] 17 gm PO Q2DAYS PRN 03/14/14 11/13/17 History Escitalopram Oxalate [Lexapro] 20 mg PO DAILY 06/22/14 11/13/17 History Pantoprazole [Protonix] 40 mg PO DAILY 08/18/15 11/13/17 History Zolpidem Tartrate [Ambien] 5 mg PO HS PRN 11/17/15 11/13/17 History Ondansetron [Zofran ODT] 4 mg PO Q8HR PRN 11/18/15 11/13/17 History cloNIDine HCl 0.2 mg PO BID 11/24/16 11/13/17 History Acetaminophen With Codeine 1 tablet PO Q6HR PRN 07/27/17 11/13/17 History [Tylenol with Codeine #3] Amlodipine [Norvasc] 5 tab PO BID 07/27/17 11/13/17 History Multivit-Minerals/Folic/Ginkgo 1 tablet PO DAILY 07/27/17 11/13/17 History [One Daily For Women 50+ Adv] Nitroglycerin 0.4 mg SL ASDIR PRN 07/27/17 11/13/17 History Pregabalin [Lyrica] 2 cap PO QPM 07/27/17 11/13/17 History Pregabalin [Lyrica] 25 mg PO QAM 07/27/17 11/13/17 History Carvedilol 25 mg PO BID #1 tablet 07/28/17 11/13/17 Rx Aspirin [Ecotrin Low Strength] 81 mg PO DAILY 11/13/17 11/13/17 History Ezetimibe [Zetia] 10 mg PO DAILY tab 11/17/17 Rx Furosemide [Lasix] 20 mg PO DAILY tab 11/17/17 Rx - History PMHx: HFpEF, increased pulm a pressure, HTN, CKD4, OA, IDDM2, depression, GERD PSHx: appendectomy, hysterectomy, bladder suspension, cystoscopy with ureteral stent placement FHx: non contributory Social: Lives with son. Denies tobacco, alcohol, drug use. History of heavy second hand smoke exposure. - Review of Systems General: reports: fever/chills (chills) Eyes: denies: vision changes Respiratory: reports: cough, shortness of breath, exercise intolerance, other Cardiovascular: reports: edema, orthopnea. denies: chest pain, palpitation Gastrointestinal: reports: nausea. denies: vomiting, diarrhea, abdominal pain Genitourinary: denies: dysuria Skin: reports: lesions (L toe infection/fracture). denies: rashes Musculoskeletal: reports: swelling, arthritis/arthralgias Neurological: reports: weakness. denies: numbness Psychological: reports: depression - Vital signs BP: 151/77 HR: 85 RR: 16 Tmax: 99.3 Pox: 98% on 4L Wt: 77 kg - Physical Exam Constitutional: NAD (tired) HEENT: normocephalic and atraumatic, grossly normal vision, grossly normal hearing Neck: supple Heart: RRR, normal S1/S2, other (1+ pitting edema, BLE. 3/6 systolic murmur) Lungs: other (decreased breath sounds b/l, crackles, sounds wet) Abdomen: soft, non-tender, bowel sounds present Musculoskeletal: normal tone, other (L 3rd toe erythematous with 1 cm area callous) Neurological: no focal deficit Skin: good turgor Heme/Lymphatic: no unusual bruising or bleeding FMR H&P: Results - Labs Result Diagrams: 01/10/19 Unknown 01/10/19 Unknown Lab results: WBC 11.2 thou/uL (4.8-10.8) H 01/10/19 Unknown Hgb 11.4 g/dL (12.0-16.0) L 01/10/19 Unknown Hct 37.4 % (36.0-47.0) 01/10/19 Unknown MCV 92.1 fL (78.0-98.0) 01/10/19 Unknown Plt Count 309 thou/uL (130-400) 01/10/19 Unknown Neutrophils % 79.3 % (42.0-75.0) H 01/10/19 Unknown Sodium 137 mmol/L (136-145) 01/10/19 Unknown Potassium 4.3 mmol/L (3.5-5.1) 01/10/19 Unknown Chloride 98 mmol/L (98-107) 01/10/19 Unknown Carbon Dioxide 31 mmol/L (23-31) 01/10/19 Unknown BUN 42 mg/dL (9.8-20.1) H 01/10/19 Unknown Creatinine 1.93 mg/dL (0.6-1.1) H 01/10/19 Unknown Glucose 213 mg/dL (83-110) H 01/10/19 Unknown Calcium 9.8 mg/dL (7.8-10.44) 01/10/19 Unknown Total Bilirubin 0.6 mg/dL (0.2-1.2) 01/10/19 Unknown AST 16 U/L (5-34) 01/10/19 Unknown ALT 8 U/L (8-55) 01/10/19 Unknown Alkaline Phosphatase 105 U/L (40-150) 01/10/19 Unknown Creatine Kinase 39 U/L (29-168) 01/10/19 Unknown B-Natriuretic Peptide 337.7 pg/mL (0-100) H 01/10/19 Unknown Serum Total Protein 7.9 g/dL (6.0-8.3) 01/10/19 Unknown Albumin 3.9 g/dL (3.4-4.8) 01/10/19 Unknown Lipase 19 U/L (8-78) 01/10/19 Unknown - EKG Interpretation EKG: LBBB - Radiology Interpretation Chest x-ray Status: image reviewed by me, report reviewed by me (prominent cardiac silhouette, pulmonary vascular congestion, perihilar interstitial prominence) FMR H&P: A/P - Problem List (1) Acute respiratory failure with hypoxia Current Visit: Yes Status: Acute Code(s): J96.01 - ACUTE RESPIRATORY FAILURE WITH HYPOXIA (2) Acute on chronic diastolic (congestive) heart failure Current Visit: Yes Status: Acute Code(s): I50.33 - ACUTE ON CHRONIC DIASTOLIC (CONGESTIVE) HEART FAILURE (3) CKD stage 4 due to type 2 diabetes mellitus Current Visit: Yes Status: Chronic Code(s): E11.22 - TYPE 2 DIABETES MELLITUS W DIABETIC CHRONIC KIDNEY DISEASE; N18.4 - CHRONIC KIDNEY DISEASE, STAGE 4 (SEVERE) (4) Leukocytosis Current Visit: Yes Status: Acute Code(s): D72.829 - ELEVATED WHITE BLOOD CELL COUNT, UNSPECIFIED (5) Normocytic anemia Current Visit: Yes Status: Chronic Code(s): D64.9 - ANEMIA, UNSPECIFIED (6) Toe fracture, left Current Visit: Yes Status: Acute Code(s): S92.912A - UNSP FRACTURE OF LEFT TOE(S), INIT FOR CLOS FX (7) Anxiety and depression Current Visit: Yes Status: Chronic Code(s): F41.9 - ANXIETY DISORDER, UNSPECIFIED; F32.9 - MAJOR DEPRESSIVE DISORDER, SINGLE EPISODE, UNSPECIFIED (8) DM type 2 (diabetes mellitus, type 2) Current Visit: Yes Status: Chronic Qualifiers: Diabetes mellitus fci insulin use: unspecified long term care pharmacist insulin use status Diabetes mellitus complication status: with kidney complications Diabetes mellitus complication detail: with chronic kidney disease Chronic kidney disease stage: stage 4 (severe) Qualified Code(s): E11.22 - Type 2 diabetes mellitus with diabetic chronic kidney disease; N18.4 - Chronic kidney disease, stage 4 (severe) (9) GERD (gastroesophageal reflux disease) Current Visit: Yes Status: Chronic Code(s): K21.9 - GASTRO-ESOPHAGEAL REFLUX DISEASE WITHOUT ESOPHAGITIS (10) Hypertension Current Visit: Yes Status: Chronic Code(s): I10 - ESSENTIAL (PRIMARY) HYPERTENSION Qualifiers: Hypertension type: essential hypertension Qualified Code(s): I10 - Essential (primary) hypertension (11) Physical deconditioning Current Visit: Yes Status: Chronic Code(s): R53.81 - OTHER MALAISE - Plan Acute hypoxic respiratory failure - sats 78% on RA per EMS requiring 4L in ED - most likely 2/2 CHF exacerbation vs PE - CXR with pulm vascular congestion, prominent cardiac silhouette - s/p 40 mg IV lasix in ED, continue 20 mg IV daily. Monitor strict I&Os - elevated d-dimer 3.29 (elevated to 10 in 2018), unable to give contrast with CKD4, ordered VQ scan. Patient given dose of therapeutic lovenox in ED. Pending VQ will decide on further anticoagulation need. HFpEF exacerbation - plan as above - EKG with LBBB, present in 2018 as well - last echo here 11/12/17 with diastolic dysfxn, EF 55-60%, LVH, elevated pulmonary a pressure - takes lasix daily at home - continue home coreg, aspirin Leukocytosis - WBC 11 - no obvious infection, will check procal and continue to monitor Chronic normocytic anemia - Hgb 11.4, at baseline HTN - home norvasc, BB (recently taken off clonidine) IDDM2 - SSI, accuchecks ACHS - continue home levemir 15 u nightly - last A1c 9, will adjust insulin regimen as needed Depression - home escitalopram, ambien GERD - home protonix OA - home tylenol #3, lyrica Physical deconditioning - PT/OT consulted CKD4 - Cr 1.93 on admission, GFR 24. At baseline - will monitor closely considering diuresis, renally dose medications L toe fracture/infection - uncertain history from patient. Started on another antibiotic yesterday, will try to discuss with son in am. Diet: CC/HH/1500 fluid restrict Ppx: s/p ther lovenox, pending VQ Dispo: admit to telemetry, expected stay >2 midnights PCP: Vik Case discussed with Dr. Hancock FMR H&P: Upper Level - Pertinent history 88 yo F with PMHx of HFpEF presents with 1 day of worsening shortness of breath , fatigue, and 2 weeks history of faintly productive cough. She also notes new symptom of difficulty lying flat. Denies worsening LE edema. She denies fever but is unable to provide comprehensive history due to easy confusion and shortness of breath. Denies current chest pain. - Pertinent findings VS and CXR reviewed Gen: awake, alert, oriented HEENT: NCAT, no JVD, trachea midline, facemask in place, conjunctiva non- injected, glasses in place CV: RRR, 4/6 systolic murmur heard best at L sternal border RESP: Diminished breath sounds at base BL ABD: soft, NTND EXT: trace edema to mid-caceres PULSES: 1+ throughout - Plan Date/Time: 01/11/19 0052 88 yo F with acute hypoxic respiratory failure 2/2 likely CHF exacerbation 1. Acute hypoxic respiratory failure - Sats 78% on RA per EMS requiring 4L in ED - DDX includes CHF exacerbation, PE, pneumonia - Continue IV lasix and supplemental O2 - D-dimer w/u as below 2. HFpEF exacerbation - EKG with LBBB, present in 2018 as well - Most recent echo 11/12/17 with diastolic dysfxn, EF 55-60%, LVH, elevated pulmonary pressure - IV lasix initially while here (on PO at home) - Continue home Coreg, Aspirin 3. Elevated D-dimer - Possibly somewhat falsely elevated 2/2 renal function - S/p therapeutic lovenox in ED - Will plan on V/Q scan in the morning and determination for need of continued anticoagulation - Consider transition to heparin if need persists 4. Leukocytosis - No obvious source of infection, procal pending 5. Possible toe infection - Patient reports change in antibiotics, will attempt to reach son in a.m. to determine regimen started Please see Dr. Arciniega's H&P for remainder of A/P I, Nathaly Ball MD, PGY-3, have evaluated this patient and agree with findings/ plan as outlined by strategy intern resident. Pertinent changes/additions are listed here. Addendum - Attending - Attending Attestation Date/Time: 01/11/19 1153 I personally evaluated the patient and discussed the management with Dr. Arciniega I agree with the History, Examination, Assessment and Plan documented above with any addition or exceptions noted below. 88 yo female brought in from home with Dyspnea and abdominal pain found in acute hypoxic failure and HF with elevated D Dimer secondary to CKD 4 will r/o PE with V/Q scan today on prophylatic dose of lovenox dose ok given decreased RFT. Rec echocardiogram evaluate harsh VALERIY and concern r/o ACS patient with anginal symptoms trend troponins and f/u EKG. Left 3rd toe wound noted recent treatment r/o osteomyelitis will check x-ray and CRP .
[2019-01-11] MEDS ORDERED: Enoxaparin Sodium 80 MG/0.8 ML SYRINGE ONE (02:05)
[2019-01-11] MEDS ORDERED: Ondansetron PF 4 MG/2 ML Vial ONE (02:05)
[2019-01-11] MEDS ORDERED: Dextrose 50% Abboject 50 ML SYRINGE SLOW IVP PRN (05:40)
[2019-01-11] MEDS ORDERED: Senokot S 8.6-50 MG TAB PO PRN (05:40)
[2019-01-11] MEDS ORDERED: Dextrose 5% in Water 1,000 ML IV PRN (05:40)
[2019-01-11] MEDS ORDERED: Furosemide 20 MG/2 ML VIAL ONE (09:10)
[2019-01-11] MEDS: Furosemide 20 MG/2 ML VIAL SLOW IVP SCH (09:14)
[2019-01-11] MEDS ORDERED: Aspirin Chewable 81 MG TAB ONE (09:45)
[2019-01-11] MEDS ORDERED: Amlodipine 5 MG TAB ONE (09:45)
--- NOTE | 2019-01-11 10:26 | NM ---
NUCLEAR MEDICINE LUNG VENTILATORY AND PERFUSION EVALUATION INDICATION: Elevated d-dimer and shortness of breath Radiopharmaceutical: Ventilation: 19.2 mCi xenon-133 inhaled. Perfusion: 6.6 mCi technetium 99m MAA IV. COMPARISON: Chest radiograph dated 01/10/2019. FINDINGS: Ventilation: There is symmetric ventilatory activity on initial breath, breath-hold and washout image s. Perfusion: No large pleural-based perfusion abnormality is demonstrated. Mismatch: No mismatched ventilatory or perfusion abnormality is demonstrated. Additional findings: None IMPRESSION: Low probability VQ scan for PE.
[2019-01-11] MEDS: Amlodipine 5 MG TAB PO SCH (10:47)
[2019-01-11] MEDS: Aspirin 81 mg Enteric Coated Tablet PO SCH (10:47)
[2019-01-11] MEDS: Carvedilol 25 MG TAB PO SCH ×2 (10:47→22:42)
[2019-01-11] MEDS: Escitalopram Oxalate 10 mg Tablet PO SCH (10:47)
[2019-01-11] MEDS: Pregabalin 25 MG CAP PO SCH ×2 (10:48→22:36)
--- NOTE | 2019-01-11 10:59 | RAD ---
EXAM: XR Toe(s) Lt Min 2 View PROVIDED CLINICAL HISTORY: Edematous left third toe after injury. Evaluate for osteomyelitis. COMPARISON: Views left foot on 01/02/2019 FINDINGS: There is diffuse osteopenia, and the toes are held in flexion which limits evaluation of osseous deta il. However, there is subcutaneous soft tissue swelling about the third toe, and there is subtle area of lucency along the cortical margin of the tuft of the distal phalanx of the left third toe. Gi saundra patient's clinical findings of osteomyelitis, the radiographic findings would be supportive of osteomyelitis. No fracture or dislocation is seen. IMPRESSION: Subtle irregularity tuft of the distal phalanx left third toe with adjacent subcutaneous soft tissue swelling. Given patient's clinical diagnosis of osteomyelitis, the radiographic findings would be supportive of osteomyelitis.
[2019-01-11] MEDS ORDERED: Ondansetron ODT 4 MG TAB ONE ×2 (11:56→19:15)
[2019-01-11] MEDS: Ondansetron ODT 4 MG TAB PO PRN (11:57)
[2019-01-11] MEDS ORDERED: Vancomycin HCl 1.25 GM in Sodium Chloride 0.9% 250 ML 250 ML IVPB SCH (17:00)
[2019-01-11] MEDS: Cephalexin 250 MG CAP PO SCH (21:10)
--- NOTE | 2019-01-11 22:21 | CON ---
DATE OF CONSULTATION: HISTORY OF PRESENT ILLNESS: Beverley Moralez is an 88-year-old female, ER hold, seen by the family practice resident, I was asked to see her regarding her left third toe. The patient states she injured her left third toe in the bed drill a week ago and it has been causing pain since. She does have diabetes, but there is no history of tobacco use. Radiological findings showed some irregularity of the tuft of the distal phalanx, left third toe with some swelling, which could represent osteomyelitis. The patient reports a previous fracture of the left second toe in the past. She denies pain in her foot otherwise except for the left third toe. ALLERGIES: REGLAN, SULFA, CLARITHROMYCIN. SOCIAL HISTORY: Tobacco, none. Alcohol, none. MEDICATIONS: At home, 1. Clonidine. 2. Ambien. 3. Lyrica. 4. Protonix. 5. Lexapro. 6. Carvedilol. 7. Norvasc. 8. Tylenol No. 3. 9. Lyrica. 10. MiraLAX. 11. Zofran. 12. Lasix. 13. Zetia. PAST SURGICAL HISTORY: In 1966, total abdominal hysterectomy, unilateral salpingo-oophorectomy, right femoral ORIF. PAST MEDICAL HISTORY: Hypertension, diabetes mellitus, chronic diastolic heart failure, congestive heart failure, chronic anemia, and deconditioning. PHYSICAL EXAMINATION: VITAL SIGNS: Height 5 feet 7 inches, 169 pounds. HEAD, EARS, EYES, NOSE, AND THROAT: Unremarkable. LUNGS: Clear to auscultation. CARDIAC: Regular rate and rhythm without murmur or gallop. ABDOMEN: Soft. EXTREMITIES: Palpable femoral and popliteal pulses dorsalis pedis, posterior tibial pulses. Left third toe is tender, slightly edematous and tender. There are no obvious sinus tracts. There is some granulation tissue over the tip of the toe in the side, but no evident infection. LABORATORY DATA: White count 11 and hemoglobin 11. Basic metabolic profile essentially normal. ASSESSMENT AND PLAN: Left third toe injury a week ago. I do not think she has a definite osteomyelitis. I would treat this with oral antibiotics and symptomatic relief. I will be glad to see her in my office. I do not think she needs any surgical intervention at this time. She can follow up in my office in a week or two. I will see her in this hospitalization as needed, please call if necessary. Job ID: [id number]
[2019-01-11] MEDS: Ciprofloxacin 500 MG TAB PO SCH (22:36)
[2019-01-11] MEDS: Zolpidem Tartrate 5 MG TAB PO PRN (22:41)
[2019-01-11] MEDS: Acetaminophen 325 MG TAB PO PRN (22:42)
[2019-01-11] MEDS: Insulin Glargine 15 UNITS in Pre-Filled Syringe 1 EACH SC SCH (22:44)
[2019-01-12 04:55] LABS: #Eosinphils 0.1 thou/uL (0.0-0.7); #Lymphocytes 1.6 thou/uL (1.20-3.40); #Neutrophils 8.4 thou/uL (1.40-6.50); %Basophils 0.4 % (0.0-1.0); %Eosinophils 0.9 % (0.0-10.0); %Monocytes 8.6 % (0.0-10.0); %Neutrophils 76.1 % (42.0-75.0); Hemoglobin 10.8 g/dL (12.0-16.0); Mean Corpuscular HGB CONC 32.6 g/dL (32.0-36.0); Mean Corpuscular Hemoglobin 30.3 pg (27.0-31.0); Mean Platelet Volume 7.7 fL (7.4-10.4); Platelet Count 262 thou/uL (130-400); RBC Distribution Width 12.7 % (11.5-14.5); Red Blood Cell (RBC) Count 3.57 mill/uL (4.20-5.40); White Blood Cell (WBC) Count 11.1 thou/uL (4.8-10.8)
[2019-01-12 05:21] LABS: Anion Gap 10 mmol/L (10-20); BUN (Urea Nitrogen) 29 mg/dL (9.8-20.1); Calc. Creatinine Clearance 26 mL/min (70-130); Calcium 9.4 mg/dL (7.8-10.44); Carbon Dioxide 34 mmol/L (23-31); Chloride 99 mmol/L (98-107); Estimated GFR-MDRD 27; Glucose 160 mg/dL (83-110); Potassium 3.9 mmol/L (3.5-5.1); Sodium 139 mmol/L (136-145)
[2019-01-12] MEDS: Ciprofloxacin 500 MG TAB PO SCH ×2 (07:22→21:11)
[2019-01-12] MEDS: Cephalexin 250 MG CAP PO SCH ×3 (09:42→21:09)
[2019-01-12] MEDS: Escitalopram Oxalate 10 mg Tablet PO SCH (09:43)
[2019-01-12] MEDS: Amlodipine 5 MG TAB PO SCH (09:43)
[2019-01-12] MEDS: Multivitamin W/ Minerals 1 TAB PO SCH (09:43)
[2019-01-12] MEDS: Ondansetron ODT 4 MG TAB PO PRN ×2 (09:43→21:09)
[2019-01-12] MEDS: Aspirin 81 mg Enteric Coated Tablet PO SCH (09:43)
[2019-01-12] MEDS: Carvedilol 25 MG TAB PO SCH ×2 (09:43→21:10)
[2019-01-12] MEDS: Furosemide 20 MG/2 ML VIAL SLOW IVP SCH (09:44)
[2019-01-12] MEDS: hydrALAZINE 25 MG TAB PO SCH ×2 (09:44→21:11)
[2019-01-12] MEDS: Acetaminophen/Codeine 30-300mg Tablet PO PRN (09:49)
[2019-01-12] MEDS: Pregabalin 25 MG CAP PO SCH (09:59)
[2019-01-12] MEDS: HumaLOG 300 UNITS/3 ML VIAL SC PRN (11:47)
--- NOTE | 2019-01-12 14:00 | PDOC.FM ---
- Subjective Subjective: No significant overnight events. Patient endorses right jaw and ear pain. She states that something on the inside of her mouth hurts. She denies chest pain or shortness of breath this AM. Patient endorses some nausea associated with antibiotics. She is also complaining about restless legs and wants to get up to walk around. - Objective MAR Reviewed: Yes Vital Signs & Weight: Vital Signs (12 hours) Temp Pulse Pulse Pulse Resp BP BP 01/12/19 11:55 99.9 F H 90 17 01/12/19 10:00 99.1 F 86 18 01/12/19 09:44 83 160/71 H 01/12/19 09:43 83 160/71 H 01/12/19 09:29 83 88 160/70 H 01/12/19 08:39 82 01/12/19 04:00 99.7 F H 82 16 BP BP BP Pulse Ox 01/12/19 11:55 147/72 H 95 01/12/19 10:00 164/61 H 95 01/12/19 09:44 01/12/19 09:43 01/12/19 09:29 164/61 H 01/12/19 08:39 148/58 H 01/12/19 04:00 147/72 H 93 L Weight Weight 74.644 kg I&O: 01/11/19 01/12/19 01/13/19 06:59 06:59 06:59 Output Total 250 Balance -250 Result Diagrams: 01/12/19 04:46 01/12/19 04:46 EKG Reviewed by me: Yes Radiology Reviewed by me: Yes Phys Exam - Physical Examination Constitutional: NAD HEENT: moist MMs Neck: supple Respiratory: no wheezing Cardiovascular: RRR 4/6 systolic murmur Gastrointestinal: soft, no distention Musculoskeletal: no edema, pulses present Neurological: non-focal, moves all 4 limbs Psychiatric: normal affect, A&O x 3 Skin: no rash, cap refill <2 seconds Dx/Plan (1) Acute on chronic diastolic (congestive) heart failure Code(s): I50.33 - ACUTE ON CHRONIC DIASTOLIC (CONGESTIVE) HEART FAILURE Status : Acute (2) Acute respiratory failure with hypoxia Code(s): J96.01 - ACUTE RESPIRATORY FAILURE WITH HYPOXIA Status: Acute (3) Leukocytosis Code(s): D72.829 - ELEVATED WHITE BLOOD CELL COUNT, UNSPECIFIED Status: Acute (4) Toe fracture, left Code(s): S92.912A - UNSP FRACTURE OF LEFT TOE(S), INIT FOR CLOS FX Status: Acute (5) Anxiety and depression Code(s): F41.9 - ANXIETY DISORDER, UNSPECIFIED; F32.9 - MAJOR DEPRESSIVE DISORDER, SINGLE EPISODE, UNSPECIFIED Status: Chronic (6) CKD stage 4 due to type 2 diabetes mellitus Code(s): E11.22 - TYPE 2 DIABETES MELLITUS W DIABETIC CHRONIC KIDNEY DISEASE; N18.4 - CHRONIC KIDNEY DISEASE, STAGE 4 (SEVERE) Status: Chronic (7) DM type 2 (diabetes mellitus, type 2) Status: Chronic Qualifiers: Diabetes mellitus emt intermediate insulin use: unspecified jail insulin use status Diabetes mellitus complication status: with kidney complications Diabetes mellitus complication detail: with chronic kidney disease Chronic kidney disease stage: stage 4 (severe) Qualified Code(s): E11.22 - Type 2 diabetes mellitus with diabetic chronic kidney disease; N18.4 - Chronic kidney disease, stage 4 (severe) (8) GERD (gastroesophageal reflux disease) Code(s): K21.9 - GASTRO-ESOPHAGEAL REFLUX DISEASE WITHOUT ESOPHAGITIS Status: Chronic (9) Hypertension Code(s): I10 - ESSENTIAL (PRIMARY) HYPERTENSION Status: Chronic Qualifiers: Hypertension type: essential hypertension Qualified Code(s): I10 - Essential (primary) hypertension - Plan Plan: Acute hypoxic respiratory failure - sats 78% on RA per EMS requiring 4L in ED - most likely 2/2 CHF exacerbation - CXR with pulm vascular congestion, prominent cardiac silhouette - s/p 40 mg IV lasix in ED, and 20 mg today - Monitor strict I&Os - elevated d-dimer 3.29 (elevated to 10 in 2018), unable to give contrast with CKD4; VQ scan with low probability for PE - Consider ABG HFpEF exacerbation - plan as above - EKG with LBBB, present in 2018 as well - last echo here 11/12/17 with diastolic dysfxn, EF 55-60%, LVH, elevated pulmonary artery pressure - takes lasix daily at home - continue home coreg, aspirin Leukocytosis - WBC 11 - no obvious infection; procal negative - Blood cx negative to date Chronic normocytic anemia - Hgb 11.4, at baseline HTN - home norvasc, BB (recently taken off clonidine) IDDM2 - SSI, accuchecks ACHS - continue home levemir 15 u nightly - last A1c 9, will adjust insulin regimen as needed Depression - home escitalopram, ambien GERD - home protonix OA - home tylenol #3, lyrica Physical deconditioning - PT/OT consulted CKD4 - Cr 1.93 on admission, GFR 24. At baseline - will monitor closely considering diuresis, renally dose medications L 2nd toe fracture with injury to 3rd toe - ESR elevated, toe xray with possibility for osteo - Evaluated by gen surgery. - Plan for PO abx and outpatient follow up in 2 weeks; low suspicion for osteo at this time Dispo: Pending echo. Titrate off O2 as tolerated. Addendum - Attending - Attending Attestation Date/Time: 01/12/19 0755 I personally evaluated the patient and discussed the management with Dr. Loving I agree with the History, Examination, Assessment and Plan documented above with any addition or exceptions noted below.
[2019-01-12 15:59] LABS: Actual Bicarbonate (HCO3a) 30.1 mEq/L (22-28); Base Excess (BEa) 5.5 mEq/L (-2.0 to +3.0); CO2 Tension 44.3 mmHg (35.0-45.0); Calcium, Ionized 1.18 mmol/L (1.12-1.30); Carboxyhemoglobin (COHb) 1.8 gm% (0.0-3.0); Potassium - ABG Lab 3.77 mmol/L (3.70-5.30); pH, Arterial 7.45 (7.35-7.45)
[2019-01-12 16:01] LABS: ALV-art Gradient 42.955 (0-20); O2 Tension (PaO2) 51.4 mmHg (> 60.0); Puncture Site RRA
[2019-01-12 16:24] LABS: Vancomycin, Random 12.6 ug/mL (See Comment)
[2019-01-12] MEDS ORDERED: Vancomycin HCl 750 MG in Sodium Chloride 0.9% 250 ML 250 ML IVPB SCH (21:00)
[2019-01-12] MEDS: Acetaminophen 325 MG TAB PO PRN (21:09)
[2019-01-12] MEDS: Pregabalin 50 MG CAP PO SCH (21:10)
[2019-01-12] MEDS: Insulin Glargine 15 UNITS in Pre-Filled Syringe 1 EACH SC SCH (21:11)
[2019-01-12] MEDS: Zolpidem Tartrate 5 MG TAB PO PRN (21:11)
[2019-01-13 05:45] LABS: #Basophils 0.1 thou/uL (0.0-0.2); #Eosinphils 0.3 thou/uL (0.0-0.7); #Lymphocytes 1.6 thou/uL (1.20-3.40); %Basophils 0.6 % (0.0-1.0); %Eosinophils 3.2 % (0.0-10.0); %Lymphocytes 17.7 % (21.0-51.0); %Monocytes 11.4 % (0.0-10.0); %Neutrophils 67.1 % (42.0-75.0); Hemoglobin 11.2 g/dL (12.0-16.0); Mean Corpuscular Hemoglobin 30.3 pg (27.0-31.0); Mean Corpuscular Volume 94.8 fL (78.0-98.0); Mean Platelet Volume 7.6 fL (7.4-10.4); Platelet Count 247 thou/uL (130-400); RBC Distribution Width 12.7 % (11.5-14.5); Red Blood Cell (RBC) Count 3.69 mill/uL (4.20-5.40); White Blood Cell (WBC) Count 8.9 thou/uL (4.8-10.8)
[2019-01-13 06:17] LABS: Anion Gap 15 mmol/L (10-20); BUN (Urea Nitrogen) 25 mg/dL (9.8-20.1); Calc. Creatinine Clearance 26 mL/min (70-130); Calcium 9.6 mg/dL (7.8-10.44); Carbon Dioxide 31 mmol/L (23-31); Chloride 100 mmol/L (98-107); Estimated GFR-MDRD 28; Glucose 129 mg/dL (83-110); Potassium 3.5 mmol/L (3.5-5.1); Sodium 142 mmol/L (136-145)
[2019-01-13] MEDS: Ciprofloxacin 500 MG TAB PO SCH ×2 (06:51→20:24)
[2019-01-13] MEDS ORDERED: Nitroglycerin 0.4 MG TAB (25 Tab Bottle) SL PRN (08:09)
--- NOTE | 2019-01-13 08:13 | PDOC.FM ---
- Subjective Subjective: Patient doing well this AM. No significant overnight events. Patient states she got much better sleep last night. Patient denies shortness of breath this AM. She states she does still intermittently have chest discomfort and nausea. She states she had cardiac cath in 2016 which showed mild occlusion of vessels that were not stentable at the time. I informed patient that I could get cardiology on board to further evaluate, but she did not want to go this route at this time. She was supposed to have appt with Dr. Harvey on 01/16 but it was cancelled as Dr. Harvey will be out of town. Patient is going to try to call to reschedule appt. She does state that the chest pain sometimes improves with nitro. She denies any jaw pain this AM. She is in good spirits. - Objective MAR Reviewed: Yes Vital Signs & Weight: Vital Signs (12 hours) Temp Pulse Resp BP BP Pulse Ox 01/13/19 07:56 98.8 F 81 16 161/76 H 97 01/13/19 03:48 98.1 F 72 16 135/64 97 01/12/19 23:29 98.3 F 67 16 120/52 L 97 01/12/19 21:11 81 139/59 L Weight Weight 74.644 kg I&O: 01/12/19 01/13/19 01/14/19 06:59 06:59 06:59 Intake Total 240 Output Total 250 400 Balance -250 -160 Result Diagrams: 01/13/19 05:25 01/13/19 05:25 EKG Reviewed by me: Yes Radiology Reviewed by me: Yes Phys Exam - Physical Examination Constitutional: NAD HEENT: moist MMs Respiratory: no wheezing 4/6 systolic murmur Gastrointestinal: soft, non-tender Musculoskeletal: no edema, pulses present Neurological: non-focal, moves all 4 limbs Psychiatric: normal affect, A&O x 3 Dx/Plan (1) Acute on chronic diastolic (congestive) heart failure Code(s): I50.33 - ACUTE ON CHRONIC DIASTOLIC (CONGESTIVE) HEART FAILURE Status : Acute (2) Acute respiratory failure with hypoxia Code(s): J96.01 - ACUTE RESPIRATORY FAILURE WITH HYPOXIA Status: Acute (3) Leukocytosis Code(s): D72.829 - ELEVATED WHITE BLOOD CELL COUNT, UNSPECIFIED Status: Acute (4) Toe fracture, left Code(s): S92.912A - UNSP FRACTURE OF LEFT TOE(S), INIT FOR CLOS FX Status: Acute (5) Anxiety and depression Code(s): F41.9 - ANXIETY DISORDER, UNSPECIFIED; F32.9 - MAJOR DEPRESSIVE DISORDER, SINGLE EPISODE, UNSPECIFIED Status: Chronic (6) CKD stage 4 due to type 2 diabetes mellitus Code(s): E11.22 - TYPE 2 DIABETES MELLITUS W DIABETIC CHRONIC KIDNEY DISEASE; N18.4 - CHRONIC KIDNEY DISEASE, STAGE 4 (SEVERE) Status: Chronic (7) DM type 2 (diabetes mellitus, type 2) Status: Chronic Qualifiers: Diabetes mellitus petroleum terminal plant operator insulin use: unspecified correction insulin use status Diabetes mellitus complication status: with kidney complications Diabetes mellitus complication detail: with chronic kidney disease Chronic kidney disease stage: stage 4 (severe) Qualified Code(s): E11.22 - Type 2 diabetes mellitus with diabetic chronic kidney disease; N18.4 - Chronic kidney disease, stage 4 (severe) (8) GERD (gastroesophageal reflux disease) Code(s): K21.9 - GASTRO-ESOPHAGEAL REFLUX DISEASE WITHOUT ESOPHAGITIS Status: Chronic (9) Hypertension Code(s): I10 - ESSENTIAL (PRIMARY) HYPERTENSION Status: Chronic Qualifiers: Hypertension type: essential hypertension Qualified Code(s): I10 - Essential (primary) hypertension - Plan Plan: Acute hypoxic respiratory failure - sats 78% on RA per EMS requiring 4L in ED - most likely 2/2 CHF exacerbation - CXR with pulm vascular congestion, prominent cardiac silhouette - s/p 40 mg IV lasix in ED, and 20 mg today - Monitor strict I&Os (minimal output of 400 mL yesterday) - elevated d-dimer 3.29 (elevated to 10 in 2018), unable to give contrast with CKD4; VQ scan with low probability for PE - ABG with pH 7.45, pCO 2 44, and pO2 54 (O2 sat on RA 87%) - Will likely need O2 at home HFpEF exacerbation - plan as above - EKG with LBBB, present in 2018 as well - last echo here 11/12/17 with diastolic dysfxn, EF 55-60%, LVH, elevated pulmonary artery pressure - takes lasix daily at home - continue home coreg, aspirin - Repeat echo pending Leukocytosis - WBC 11 - no obvious infection; procal negative - Blood cx negative to date Chronic normocytic anemia - Hgb 11.4, at baseline HTN - home norvasc, BB (recently taken off clonidine) IDDM2 - SSI, accuchecks ACHS - continue home levemir 15 u nightly - last A1c 9, will adjust insulin regimen as needed Depression - home escitalopram, ambien GERD - home protonix OA - home tylenol #3, lyrica Physical deconditioning - PT/OT consulted CKD4 - Cr 1.93 on admission, GFR 24. At baseline - will monitor closely considering diuresis, renally dose medications L 2nd toe fracture with injury to 3rd toe - ESR elevated, toe xray with possibility for osteo - Evaluated by gen surgery. - Plan for PO abx and outpatient follow up in 2 weeks; low suspicion for osteo at this time Chest discomfort with nausea - EKG LBBB, no change from previous EKG's - Trop neg x3 - Relieved with nitro - Cardiac cath done 2016 per patient that showed vessels that were not able to be stented. - Patient not wanting repeat cath at this time - She was supposed to have appt with Dr. Harvey on January 16 that was cancelled as he will be out of town - She is not wanting cardiology to come by and see her during this hospitalization and would prefer to follow up outpatient - May be angina related to prior areas of stenosis - Continue BB Dispo: Pending echo. Titrate off O2 as tolerated. May need to go home with O2. Addendum - Attending - Attending Attestation Date/Time: 01/13/19 1021 I personally evaluated the patient and discussed the management with Dr. Loving I agree with the History, Examination, Assessment and Plan documented above with any addition or exceptions noted below. patient with prior Heart cath with CAD non-amenable to re-vascularization or stenting. Patient definetly qualifying for home oxygen , pending echocardiogram and discussed D?C planning with this AM.
[2019-01-13] MEDS: Pregabalin 25 MG CAP PO SCH (10:39)
[2019-01-13] MEDS: Amlodipine 5 MG TAB PO SCH (10:41)
[2019-01-13] MEDS: Acetaminophen/Codeine 30-300mg Tablet PO PRN ×2 (10:41→22:23)
[2019-01-13] MEDS: hydrALAZINE 25 MG TAB PO SCH ×2 (10:43→20:24)
[2019-01-13] MEDS: Cephalexin 250 MG CAP PO SCH ×3 (10:43→20:24)
[2019-01-13] MEDS: Multivitamin W/ Minerals 1 TAB PO SCH (10:43)
[2019-01-13] MEDS: Carvedilol 25 MG TAB PO SCH ×2 (10:43→20:24)
[2019-01-13] MEDS: Escitalopram Oxalate 10 mg Tablet PO SCH (10:43)
[2019-01-13] MEDS: Ondansetron ODT 4 MG TAB PO PRN (10:43)
[2019-01-13] MEDS: Aspirin 81 mg Enteric Coated Tablet PO SCH (10:43)
[2019-01-13] MEDS: HumaLOG 300 UNITS/3 ML VIAL SC PRN ×2 (11:23→19:54)
[2019-01-13] MEDS: Acetaminophen 325 MG TAB PO PRN (14:08)
[2019-01-13] MEDS: Pregabalin 50 MG CAP PO SCH (20:25)
[2019-01-13] MEDS: Insulin Glargine 15 UNITS in Pre-Filled Syringe 1 EACH SC SCH (20:32)
[2019-01-13] MEDS: Zolpidem Tartrate 5 MG TAB PO PRN (20:40)
[2019-01-14] MEDS: Ciprofloxacin 500 MG TAB PO SCH (05:15)
[2019-01-14 05:47] LABS: #Basophils 0.1 thou/uL (0.0-0.2); #Eosinphils 0.6 thou/uL (0.0-0.7); #Lymphocytes 1.8 thou/uL (1.20-3.40); #Neutrophils 6.8 thou/uL (1.40-6.50); %Basophils 0.5 % (0.0-1.0); %Eosinophils 6.3 % (0.0-10.0); %Lymphocytes 17.9 % (21.0-51.0); %Monocytes 9.9 % (0.0-10.0); %Neutrophils 65.4 % (42.0-75.0); Hemoglobin 11.9 g/dL (12.0-16.0); Mean Corpuscular HGB CONC 32.3 g/dL (32.0-36.0); Mean Corpuscular Hemoglobin 30.5 pg (27.0-31.0); Mean Corpuscular Volume 94.6 fL (78.0-98.0); Mean Platelet Volume 7.6 fL (7.4-10.4); Platelet Count 267 thou/uL (130-400); RBC Distribution Width 12.7 % (11.5-14.5); Red Blood Cell (RBC) Count 3.89 mill/uL (4.20-5.40); White Blood Cell (WBC) Count 10.3 thou/uL (4.8-10.8)
[2019-01-14 06:02] LABS: Anion Gap 12 mmol/L (10-20); BUN (Urea Nitrogen) 24 mg/dL (9.8-20.1); Calc. Creatinine Clearance 29 mL/min (70-130); Calcium 9.7 mg/dL (7.8-10.44); Carbon Dioxide 28 mmol/L (23-31); Chloride 103 mmol/L (98-107); Estimated GFR-MDRD 32; Glucose 119 mg/dL (83-110); Sodium 139 mmol/L (136-145)
--- NOTE | 2019-01-14 06:28 | PDOC.FM ---
- Subjective Subjective: Beverley Moralez seen at bedside this morning. She has no complaints this morning. She has been set up with home O2. She is ready to be discharged today. There were no acute events overnight. She denies fever, chills, chest pain, dyspnea. - Objective MAR Reviewed: Yes Vital Signs & Weight: Vital Signs (12 hours) Temp Pulse Resp BP Pulse Ox 01/14/19 04:46 96 01/14/19 04:00 97.9 F 77 18 154/61 H 96 01/14/19 00:00 98.5 F 90 19 137/66 100 01/13/19 20:24 78 01/13/19 19:54 98.2 F 78 18 132/64 98 Weight Weight 72.665 kg I&O: 01/12/19 01/13/19 01/14/19 06:59 06:59 06:59 Intake Total 240 100 Output Total 250 400 Balance -250 -160 100 Result Diagrams: 01/14/19 05:31 01/14/19 05:31 Phys Exam - Physical Examination Constitutional: NAD HEENT: moist MMs, sclera anicteric Neck: no JVD, supple, full ROM Respiratory: no wheezing, no rales, no rhonchi, clear to auscultation bilateral Cardiovascular: RRR 4/6 systolic murmur Gastrointestinal: soft, non-tender, no distention Musculoskeletal: no edema, pulses present Neurological: non-focal, moves all 4 limbs Psychiatric: normal affect, A&O x 3 Dx/Plan (1) Acute on chronic diastolic (congestive) heart failure Code(s): I50.33 - ACUTE ON CHRONIC DIASTOLIC (CONGESTIVE) HEART FAILURE Status : Acute (2) Acute respiratory failure with hypoxia Code(s): J96.01 - ACUTE RESPIRATORY FAILURE WITH HYPOXIA Status: Acute (3) Leukocytosis Code(s): D72.829 - ELEVATED WHITE BLOOD CELL COUNT, UNSPECIFIED Status: Acute (4) Toe fracture, left Code(s): S92.912A - UNSP FRACTURE OF LEFT TOE(S), INIT FOR CLOS FX Status: Acute (5) Anxiety and depression Code(s): F41.9 - ANXIETY DISORDER, UNSPECIFIED; F32.9 - MAJOR DEPRESSIVE DISORDER, SINGLE EPISODE, UNSPECIFIED Status: Chronic (6) CKD stage 4 due to type 2 diabetes mellitus Code(s): E11.22 - TYPE 2 DIABETES MELLITUS W DIABETIC CHRONIC KIDNEY DISEASE; N18.4 - CHRONIC KIDNEY DISEASE, STAGE 4 (SEVERE) Status: Chronic (7) DM type 2 (diabetes mellitus, type 2) Status: Chronic Qualifiers: 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 Diabetes mellitus complication status: with kidney complications Diabetes mellitus complication detail: with chronic kidney disease Chronic kidney disease stage: stage 4 (severe) Qualified Code(s): E11.22 - Type 2 diabetes mellitus with diabetic chronic kidney disease; N18.4 - Chronic kidney disease, stage 4 (severe) (8) GERD (gastroesophageal reflux disease) Code(s): K21.9 - GASTRO-ESOPHAGEAL REFLUX DISEASE WITHOUT ESOPHAGITIS Status: Chronic - Plan Plan: Acute hypoxic respiratory failure - sats 78% on RA per EMS requiring 4L in ED - most likely 2/2 CHF exacerbation - CXR with pulm vascular congestion, prominent cardiac silhouette - s/p 40 mg IV lasix in ED, and 20 mg today - Monitor strict I&Os (minimal output of 400 mL yesterday) - elevated d-dimer 3.29 (elevated to 10 in 2018), unable to give contrast with CKD4; VQ scan with low probability for PE - ABG with pH 7.45, pCO 2 44, and pO2 54 (O2 sat on RA 87%) - CM working on getting set up with home O2 HFpEF exacerbation - plan as above - EKG with LBBB, present in 2018 as well - last echo here 11/12/17 with diastolic dysfxn, EF 55-60%, LVH, elevated pulmonary artery pressure - takes lasix daily at home - continue home coreg, aspirin - Echo showed EF 50-55% Leukocytosis - WBC 10.3 today - no obvious infection; procal negative - Blood cx negative to date Chronic normocytic anemia - Hgb 11.4, at baseline HTN - home norvasc, BB (recently taken off clonidine) IDDM2 - SSI, accuchecks ACHS - continue home levemir 15 u nightly - last A1c 9, will adjust insulin regimen as needed Depression - home escitalopram, ambien GERD - home protonix OA - home tylenol #3, lyrica Physical deconditioning - PT/OT consulted CKD4 - Cr 1.93 on admission, GFR 24. At baseline - will monitor closely considering diuresis, renally dose medications L 2nd toe fracture with injury to 3rd toe - ESR elevated, toe xray with possibility for osteo - Evaluated by gen surgery. - Plan for PO abx and outpatient follow up in 2 weeks; low suspicion for osteo at this time Chest discomfort with nausea - EKG LBBB, no change from previous EKG's - Trop neg x3 - Relieved with nitro - Cardiac cath done 2016 per patient that showed vessels that were not able to be stented. - Patient not wanting repeat cath at this time - She was supposed to have appt with Dr. Harvey on January 16 that was cancelled as he will be out of town - She is not wanting cardiology to come by and see her during this hospitalization and would prefer to follow up outpatient - May be angina related to prior areas of stenosis - Continue BB Dispo: discharging patient home with home oxygen today Addendum - Attending - Attending Attestation Date/Time: 01/14/19 9873 I personally evaluated the patient and discussed the management with Dr. Lyles I agree with the History, Examination, Assessment and Plan documented above with any addition or exceptions noted below. Stable for dismissal home today echocardiogram completed prelim report no notable changes. Patient will require home oxygen and arrangement made for HH with PT to restart.
[2019-01-14] MEDS: Ondansetron ODT 4 MG TAB PO PRN (06:53)
[2019-01-14] MEDS: Multivitamin W/ Minerals 1 TAB PO SCH (09:19)
[2019-01-14] MEDS: Escitalopram Oxalate 10 mg Tablet PO SCH (09:19)
[2019-01-14] MEDS: Cephalexin 250 MG CAP PO SCH (09:19)
[2019-01-14] MEDS: Carvedilol 25 MG TAB PO SCH (09:19)
[2019-01-14] MEDS: Amlodipine 5 MG TAB PO SCH (09:20)
[2019-01-14] MEDS: Aspirin 81 mg Enteric Coated Tablet PO SCH (09:21)
[2019-01-14] MEDS: hydrALAZINE 25 MG TAB PO SCH (09:21)
[2019-01-14] MEDS: Acetaminophen 325 MG TAB PO PRN (09:28)
[2019-01-14] MEDS: Pregabalin 25 MG CAP PO SCH (09:28)
[2019-01-14 11:19] VITALS: BP 139/58; TEMP 98.3
[2019-01-14] MEDS: HumaLOG 300 UNITS/3 ML VIAL SC PRN (12:31)
--- NOTE | 2019-01-15 04:11 | DIS ---
DATE OF ADMISSION: 01/11/2019 DATE OF DISCHARGE: 01/14/2019 RESIDENT: Spencer Lyles MD. ADMITTING ATTENDING: Lan Hancock MD. CONSULTS: 1. General surgery, Dr. Miranda on 01/11/2019. 2. PT/OT evaluation and treat. 3. Case Management. 4. Heart Failure Clinic. 5. Dietitian. PROCEDURES: 1. Chest x-ray on 01/10/2019. Impression: Prominent cardiac silhouette with pulmonary vascular congestion and perihilar interstitial prominence. 2. Pulmonary perfusion imaging on 01/11/2019. Impression: Low probability V/Q scan for PE. 3. Toe x-ray on 01/11/2019. Impression: Subtle irregularity, tuft of the distal phalanx, left 3rd toe with adjacent subcutaneous soft tissue swelling. 4. Echocardiogram on 01/13/2019. SUMMARY: Ejection fraction visually estimated at 50% to 55%. Normal size left atrium. Left ventricular size is normal. Aortic leaflets are somewhat thickened. Decw-sh-vurthyyr aortic stenosis present. Mild mitral regurg is present. Mild tricuspid regurgitation present. PRIMARY DIAGNOSES: 1. Acute respiratory failure with hypoxia. 2. Jilli-jj-gxmyoms diastolic congestive heart failure. SECONDARY DIAGNOSES: 1. Acute worsening of stage 3 chronic kidney disease. 2. Physical deconditioning. 3. Type 2 diabetes mellitus. 4. Hypertension. 5. Anxiety and depression. 6. Gastroesophageal reflux disease. 7. Normocytic anemia. 8. Left toe fracture. DISCHARGE MEDICATIONS: Resume home medications includin. MiraLAX 17 g p.o. daily p.r.n. 2. Lexapro 20 mg p.o. daily. 3. Pantoprazole 40 mg p.o. daily. 4. Ambien 5 mg p.o. at bedtime p.r.n. 5. Zofran 4 mg p.o. q.8 hours p.r.n. 6. Multivitamin 1 tab p.o. daily. 7. Nitroglycerin 0.4 mg sublingual p.r.n. 8. Lyrica 25 mg p.o. q.a.m. 9. Tylenol No. 3 one tab p.o. q.6 hours p.r.n. 10. Norvasc 5 mg p.o. b.i.d. 11. Carvedilol 25 mg p.o. b.i.d. 12. Aspirin 81 mg p.o. daily. 13. Furosemide 20 mg p.o. daily. 14. Hydralazine 25 mg p.o. b.i.d. NEW HOME MEDICATIONS: Include: 1. Keflex 500 mg p.o. t.i.d. for 7 days. 2. Cipro 500 mg p.o. b.i.d. for 7 days. 3. Lantus 15 units subcu at bedtime and insulin supplies. HISTORY OF PRESENT ILLNESS/HOSPITAL COURSE: Ms. Beverley Moralez is an 88-year-old female with a past medical historyof heart failure with preserved ejection fraction, hypertension, type 2 diabetes mellitus, CKD stage 4, who presents to the ED with shortness of breath that began the morning of admission. The patient stated that the shortness of breath occurred at rest and worsened with exertion. She reports 2 pillow orthopnea that is new. She reported chills and increased weakness and bilateral lower extremity edema. She had some mild chest pain when shortness of breath of breath was at its worse, but she denies any upon admission and she reported a 2-week history of productive white cough that worsens at night. The patient was seen in the ED 1 week prior to admission for a broken toe and cellulitis. She was taking doxycycline and was switched to an unknown different antibiotic 1 day prior to admission. In the ED, she received Lasix 40 mg IV, DuoNeb, nitroglycerin paste, therapeutic Lovenox. PHYSICAL EXAMINATION: VITAL SIGNS: On admission were blood pressure 151/77, heart rate 85, respirations 16, temp 99.3, pulse ox 98 percent on 4 L. CARDIAC: Physical exam on admission was significant for 1+ pitting edema bilaterally and 3/6 systolic murmur. LUNGS: She also had bilateral correct crackles and decreased breath sounds on lung exam. EXTREMITIES: Her left 3rd toe was erythematous with a 1 cm area of callus. LABORATORY DATA: Initial labs were white count of 11.2, hemoglobin 11.4, hematocrit 37.4, platelets 309. Sodium 137, potassium 4.3, chloride 98, bicarb 31, BUN 42, creatinine 1.93, glucose of 213. The patient's EKG was significant for left bundle branch block and chest x-ray was read as above. The patient was admitted for acute hypoxic respiratory failure. She had sats of 78% on room air. Per EMS, requiring 4 L of nasal cannula in the ED. It was thought that this was likely due to a CHF exacerbation. She had a pulmonary perfusion test that showed low likelihood for PE. IV Lasix was continued and patient was able to be diurese well. The patient was set up for home O2 due to her symptoms and was able to do well on 2 L of nasal cannula in the hospital. In regard to the patient's left toe, there was concern for osteomyelitis initially and Dr. Miranda was consulted. X-ray was done and the results were as above. Dr. Miranda examined the patient and felt like the patient did not have definite osteomyelitis. He recommends treating with oral antibiotics for 1 more week and wanted the patient to follow up with him in his office. He did not recommend any surgical intervention at this time. The patient's hospital stay was otherwise unremarkable. Her white blood cell count down trended to 10.3. Her creatinine down trended to 1.53. In regard to her diabetes, she was started on Lantus and had decent control of blood sugars with Lantus 15 units. Blood cultures were negative during this hospitalization and her stay was otherwise uncomplicated. DISPOSITION: Stable. The patient should do well, if she continues heart failure therapy and follows up with Heart Failure Clinic as well as continues antibiotics for her toe and follows up with Dr. Miranda and keeping normal followup appointments for control of her diabetes with primary care provider. DISCHARGE INSTRUCTIONS: 1. Location: Home. 2. Diet: Heart healthy and consistent carb diet. 3. Physical activity as tolerated. 4. Followup with Dr. Miranda, general surgery, Heart Failure Clinic and primary care provider. Job ID: [id number]
== END 2019-01-14 13:17 | disposition home or self-care (01) | DRG 291 ==
LOC: ERS 23:18 → ERHOLD 01-11 01:16 → 2SE 01-11 19:57 → 2NO 01-12 09:43 → 2SE 01-12 09:47
PROVIDERS: ADMIT Family Medicine; ATTEND Family Medicine
DX: I13.0 Hypertensive heart and chronic kidney disease with heart failure and stage 1 through stage 4 chronic kidney disease, or unspecified chronic kidney disease (principal); J96.01 Acute respiratory failure with hypoxia; I50.33 Acute on chronic diastolic (congestive) heart failure; N18.4 Chronic kidney disease, stage 4 (severe); E11.22 Type 2 diabetes mellitus with diabetic chronic kidney disease; F32.9 Major depressive disorder, single episode, unspecified; K21.9 Gastro-esophageal reflux disease without esophagitis; D72.829 Elevated white blood cell count, unspecified; D64.9 Anemia, unspecified; F41.9 Anxiety disorder, unspecified; R53.81 Other malaise; M19.91 Primary osteoarthritis, unspecified site; S92.532A Displaced fracture of distal phalanx of left lesser toe(s), initial encounter for closed fracture; X58.XXXA Exposure to other specified factors, initial encounter; I44.7 Left bundle-branch block, unspecified; I25.10 Atherosclerotic heart disease of native coronary artery without angina pectoris; Z79.82 Long term (current) use of aspirin; Z90.49 Acquired absence of other specified parts of digestive tract; Z90.710 Acquired absence of both cervix and uterus; Z88.2 Allergy status to sulfonamides; Z79.899 Other long term (current) drug therapy; Z98.890 Other specified postprocedural states; Z88.1 Allergy status to other antibiotic agents; Z88.8 Allergy status to other drugs, medicaments and biological substances
CPT/HCPCS: 36415; 36416; 71045; 78582; 80048; 80053; 80202; 82550; 82805; 83690; 83880; 84145; 84484; 85025; 85379; 85652; 86140; 87040; 93005; 93306; 93798; 94640; 94760; 96372; 96374; 96375; A9540; A9558; J1650; J1825; J1940; J2405; J3370; J7050; J7611; Q0162

== ENCOUNTER 2019-02-26 10:46 | Inpatient (IN) | payer MEDICARE, OTHER ==
[2019-02-26] MEDS ORDERED: Furosemide 40 MG/4 ML VIAL ONE (11:06)
[2019-02-26 11:36] LABS: #Basophils 0.1 thou/uL (0.0-0.2); #Eosinphils 0.4 thou/uL (0.0-0.7); #Lymphocytes 1.5 thou/uL (1.20-3.40); #Monocytes 0.7 thou/uL (0.11-0.59); #Neutrophils 6.9 thou/uL (1.40-6.50); %Basophils 0.8 % (0.0-1.0); %Eosinophils 3.7 % (0.0-10.0); %Lymphocytes 16.2 % (21.0-51.0); %Neutrophils 72.4 % (42.0-75.0); Hemoglobin 11.4 g/dL (12.0-16.0); Mean Corpuscular HGB CONC 33.5 g/dL (32.0-36.0); Mean Corpuscular Hemoglobin 31.1 pg (27.0-31.0); Mean Corpuscular Volume 92.8 fL (78.0-98.0); Mean Platelet Volume 8.1 fL (7.4-10.4); Platelet Count 212 thou/uL (130-400); RBC Distribution Width 12.6 % (11.5-14.5); Red Blood Cell (RBC) Count 3.68 mill/uL (4.20-5.40); White Blood Cell (WBC) Count 9.5 thou/uL (4.8-10.8)
--- NOTE | 2019-02-26 11:37 | RAD ---
XR Chest 1 View Portable History: Dyspnea Comparison: Chest radiograph January 10, 2019 Findings: Heart size is enlarged. Mild edema. Small effusions. No pneumothorax. Impression: Congestive heart failure changes with cardiomegaly, edema and effusions.
[2019-02-26 12:02] LABS: ALT (SGPT) 9 U/L (8-55); AST (SGOT) 16 U/L (5-34); Albumin 3.9 g/dL (3.4-4.8); Alkaline Phosphatase 85 U/L (40-150); Anion Gap 15 mmol/L (10-20); BUN (Urea Nitrogen) 43 mg/dL (9.8-20.1); Bilirubin, Total 0.6 mg/dL (0.2-1.2); Calc. Creatinine Clearance 0 mL/min (70-130); Calcium 9.1 mg/dL (7.8-10.44); Carbon Dioxide 27 mmol/L (23-31); Chloride 102 mmol/L (98-107); Estimated GFR-MDRD 25; Globulin 3.4 g/dL (2.4-3.5); Glucose 161 mg/dL (83-110); Potassium 4.3 mmol/L (3.5-5.1); Protein, Total 7.3 g/dL (6.0-8.3); Sodium 140 mmol/L (136-145)
--- NOTE | 2019-02-26 13:24 | PDOC.FPRHP ---
- History of Present Illness Chief Complaint: SOB History of Present Illness: 88yo female with pmh of HFpEF presents for SOB over the last 2 days as well as cough for the past day. She also endorses lower leg edema. Has been taking Lasix daily as directed. Endorses orthopnea. Denies fever, chills, chest pain. Her brand specialist is Dr Harvey. Not on oxygen at home. PCP: Dr Chery ED Course: Lasix 40 IV Initially hypoxic with spo2 in 80's on RA - Allergies/Adverse Reactions Allergies Allergy/AdvReac Type Severity Reaction Status Date / Time clarithromycin [From Biaxin] Allergy Unknown Verified 07/27/17 17:20 metoclopramide HCl Allergy Unknown Verified 07/27/17 17:20 [From Reglan] sulfamethoxazole Allergy Unknown Verified 07/27/17 17:20 [From Bactrim] trimethoprim [From Bactrim] Allergy Unknown Verified 07/27/17 17:20 levofloxacin [From Levaquin] AdvReac Mild Nausea Verified 07/27/17 17:20 - Home Medications Medication Instructions Recorded Confirmed Type Polyethylene Glycol 3350 [Miralax] 17 gm PO Q2DAYS PRN 03/14/14 02/26/19 History Pantoprazole [Protonix] 40 mg PO DAILY 08/18/15 02/26/19 History Ondansetron [Zofran ODT] 4 mg PO Q8HR PRN 11/18/15 02/26/19 History Acetaminophen With Codeine 1 tablet PO Q6HR PRN 07/27/17 02/26/19 History [Tylenol with Codeine #3] Amlodipine [Norvasc] 5 tab PO BID 07/27/17 02/26/19 History Multivit-Minerals/Folic/Ginkgo 1 tablet PO DAILY 07/27/17 02/26/19 History [One Daily For Women 50+ Adv] Nitroglycerin 0.4 mg SL ASDIR PRN 07/27/17 02/26/19 History Pregabalin [Lyrica] 25 mg PO QAM 07/27/17 02/26/19 History Carvedilol 25 mg PO BID #1 tablet 07/28/17 02/26/19 Rx Aspirin [Ecotrin Low Strength] 81 mg PO DAILY 11/13/17 02/26/19 History Furosemide [Lasix] 20 mg PO DAILY tab 11/17/17 02/26/19 Rx Lancets/Blood Glucose Strips [Fora 1 each ACHS #1 combo..pkg 01/14/19 Rx [id number] Strp-Lnct] Pre-Filled Syringe 15 units SC HS #1 each 01/14/19 02/26/19 Rx FLUoxetine HCl 20 mg PO QAM 02/26/19 02/26/19 History Pantoprazole [Protonix] 40 mg PO QAM 02/26/19 02/26/19 History Solifenacin Succinate [Vesicare] 5 mg PO QAM 02/26/19 02/26/19 History Terbinafine 1% Cream [LamISIL 1% 1 g TOP BID PRN 02/26/19 02/26/19 History Cream] Zolpidem Tartrate [Ambien] 5 mg PO HS 02/26/19 02/26/19 History cloNIDine [Catapres] 0.2 mg PO HS 02/26/19 02/26/19 History - History PMHx: CAD, DMII, HFpEF, HTN, GERD, anxiety, depression, RLS, OA, CKD, Aortic Stenosis PSHx: Appendectomy, hysterectomy, R femur, bladder sling FHx: Heart disease on mom's side Social: Denies tobacco, alcohol and drug use - Review of Systems General: denies: fever/chills ENT: denies: nasal congestion, rhinorrhea Respiratory: reports: cough, shortness of breath Cardiovascular: reports: chest pain, edema, orthopnea. denies: paroxysmal nocturnal dyspnea Gastrointestinal: reports: nausea. denies: vomiting Skin: reports: rashes (rash under breast (told yeast infection by PCP)). denies : lesions Musculoskeletal: reports: swelling. denies: pain Neurological: reports: numbness (L arm and hand (long standing)). denies: syncope - Vital signs BP: 152/74 HR: 81 RR: 21 Tmax: 97.9 Pox: 95% on 2L Wt: 77kg - Physical Exam Constitutional: NAD, awake, alert and oriented HEENT: normocephalic and atraumatic, conjunctiva clear, MMM, oropharynx clear, other (poor dentition, wearing glasses) Neck: supple, trachea midline, no JVD Heart: RRR, pulses present -Heart: 3/6 systolic murmur that radiates to carotids bilaterally Pitting edema to knees Lungs: no retractions, other (Diffuse crackles) Abdomen: soft, non-tender, bowel sounds present Musculoskeletal: normal structure, normal tone Neurological: no focal deficit -Skin: small satelitte lesion rash under left breast Heme/Lymphatic: no unusual bruising or bleeding Psychiatric: normal mood and affect, good judgment and insight, intact recent and remote memory FMR H&P: Results - Labs Result Diagrams: 02/26/19 11:27 02/26/19 11:27 Lab results: WBC 9.5 thou/uL (4.8-10.8) 02/26/19 11:27 Hgb 11.4 g/dL (12.0-16.0) L 02/26/19 11:27 Hct 34.2 % (36.0-47.0) L 02/26/19 11:27 MCV 92.8 fL (78.0-98.0) 02/26/19 11:27 Plt Count 212 thou/uL (130-400) 02/26/19 11:27 Neutrophils % 72.4 % (42.0-75.0) 02/26/19 11:27 Sodium 140 mmol/L (136-145) 02/26/19 11:27 Potassium 4.3 mmol/L (3.5-5.1) 02/26/19 11:27 Chloride 102 mmol/L (98-107) 02/26/19 11:27 Carbon Dioxide 27 mmol/L (23-31) 02/26/19 11:27 BUN 43 mg/dL (9.8-20.1) H 02/26/19 11:27 Creatinine 1.87 mg/dL (0.6-1.1) H 02/26/19 11:27 Glucose 161 mg/dL (83-110) H 02/26/19 11:27 Calcium 9.1 mg/dL (7.8-10.44) 02/26/19 11:27 Total Bilirubin 0.6 mg/dL (0.2-1.2) 02/26/19 11:27 AST 16 U/L (5-34) 02/26/19 11:27 ALT 9 U/L (8-55) 02/26/19 11:27 Alkaline Phosphatase 85 U/L (40-150) 02/26/19 11:27 B-Natriuretic Peptide 347.9 pg/mL (0-100) H 02/26/19 11:27 Serum Total Protein 7.3 g/dL (6.0-8.3) 02/26/19 11:27 Albumin 3.9 g/dL (3.4-4.8) 02/26/19 11:27 - EKG Interpretation EKG: LBBB seen on prior EKG - Radiology Interpretation Chest x-ray Status: report reviewed by me Additional comment: CHF with cardiomegaly, edema and effusions FMR H&P: A/P - Problem List (1) Acute on chronic diastolic (congestive) heart failure Current Visit: No Status: Acute Code(s): I50.33 - ACUTE ON CHRONIC DIASTOLIC (CONGESTIVE) HEART FAILURE (2) Acute respiratory failure with hypoxia Current Visit: No Status: Acute Code(s): J96.01 - ACUTE RESPIRATORY FAILURE WITH HYPOXIA (3) Anxiety and depression Current Visit: No Status: Chronic Code(s): F41.9 - ANXIETY DISORDER, UNSPECIFIED; F32.9 - MAJOR DEPRESSIVE DISORDER, SINGLE EPISODE, UNSPECIFIED (4) CAD (coronary artery disease) Current Visit: No Status: Chronic Code(s): I25.10 - ATHSCL HEART DISEASE OF [place] CORONARY ARTERY W/O ANG PCTRS (5) CKD stage 4 due to type 2 diabetes mellitus Current Visit: No Status: Chronic Code(s): E11.22 - TYPE 2 DIABETES MELLITUS W DIABETIC CHRONIC KIDNEY DISEASE; N18.4 - CHRONIC KIDNEY DISEASE, STAGE 4 (SEVERE) (6) GERD (gastroesophageal reflux disease) Current Visit: No Status: Chronic Code(s): K21.9 - GASTRO-ESOPHAGEAL REFLUX DISEASE WITHOUT ESOPHAGITIS (7) HLD (hyperlipidemia) Current Visit: No Status: Chronic Code(s): E78.5 - HYPERLIPIDEMIA, UNSPECIFIED (8) Hypertension Current Visit: No Status: Chronic Code(s): I10 - ESSENTIAL (PRIMARY) HYPERTENSION Qualifiers: Hypertension type: essential hypertension Qualified Code(s): I10 - Essential (primary) hypertension (9) Normocytic anemia Current Visit: No Status: Chronic Code(s): D64.9 - ANEMIA, UNSPECIFIED (10) Physical deconditioning Current Visit: No Status: Chronic Code(s): R53.81 - OTHER MALAISE - Plan 88yo female with pmh of CHF admitted for acute hypoxic respiratory failure 2/2 HFpEF exacerbation Acute hypoxic respiratory failure 2/2 HFpEF exacerbation - BNP 348. Requiring 2L O2 - CXR: CHF with cardiomegaly, edema and effusions - Echo 01/13/19: EF 50-55% - s/p IV Lasix 40mg in ED - IV Lasix - Continue supplemental O2, wean as tolerated - Daily wts, fluid restriction, strict I&Os - Continue home Coreg, ASA - Admit to medical CAD - Follows with Dr Harvey - Most recent cath in 2004. 30-40% ostial LAD lesion. Normal stress test in 2016 - Continue home meds CKD - Cr 1.87, at pts baseline DMII - ACHS accuchecks, SSI, hypoglycemic protocol, CC diet - Continue home meds. Pt on 15U Levemir daily, will give Lantus in place of - Last A1c 9.2 on 12/22/18 GERD - Continue home Protonix Chronic Normocytic Anemia - Hgb 11.4, at baseline HTN - Continue home meds Anxiety/Depression - Continue home meds RLS - Continue home meds Aortic Stenosis - Mild/Mod on Echo 01/13/19 Physical Deconditioning - PT/OT consulted DVT ppx: Lovenox PCP: [facility] (Dr Chery) FMR H&P: Upper Level - Pertinent history 88 yo F who presents with 2 days of worsening shortness of breath. At present, no chest pain and feeling better with NC O2 support. - Pertinent findings VSS CXR reviewed Gen: awake, alert, oriented HEENT: NCAT, MMM, NC in place, no JVD, trachea midline CV: RRR, 3/6 systolic murmur RESP: CTAB ABD: soft, NTND, bowel sounds present EXT: trace edema to knees BL - Plan Date/Time: 02/26/19 1322 88 F with PMHx HFpEF here with CHF exacerbation 1. CHF exacerbation - s/p IV lasix in ED - Strict I/Os - NC support - Fluid restrict diet Please see Dr. Hernandez's note for remainder of A/P I, Nathaly Ball MD, PGY-3, have evaluated this patient and agree with findings/ plan as outlined by dietetic intern resident. Pertinent changes/additions are listed here.
[2019-02-26] MEDS ORDERED: Ondansetron ODT 4 MG TAB SL PRN (13:25)
[2019-02-26] MEDS ORDERED: Ondansetron PF 4 MG/2 ML Vial IVP PRN (13:25)
[2019-02-26] MEDS ORDERED: Acetaminophen 325 MG TAB PO PRN ×2 (13:25→16:46)
[2019-02-26] MEDS ORDERED: Dextrose 5% in Water 1,000 ML IV PRN (16:46)
[2019-02-26] MEDS ORDERED: Ondansetron ODT 4 MG TAB PO PRN (16:46)
[2019-02-26] MEDS ORDERED: Dextrose 50% Abboject 50 ML SYRINGE SLOW IVP PRN (16:46)
[2019-02-26] MEDS ORDERED: Nitroglycerin 0.4 MG TAB (25 Tab Bottle) SL PRN (16:46)
[2019-02-26] MEDS: HumaLOG 300 UNITS/3 ML VIAL SC PRN ×2 (17:12→20:18)
[2019-02-26] MEDS ORDERED: Furosemide 40 MG/4 ML VIAL SLOW IVP SCH (17:15)
[2019-02-26 18:14] VITALS: BMI 31.0
[2019-02-26] MEDS: Amlodipine 5 MG TAB PO SCH (20:17)
[2019-02-26] MEDS: Carvedilol 25 MG TAB PO SCH (20:17)
[2019-02-26] MEDS: cloNIDine 0.2 MG TAB PO SCH (20:17)
[2019-02-26] MEDS: Zolpidem Tartrate 5 MG TAB PO SCH (20:18)
[2019-02-26] MEDS: Acetaminophen/Codeine 30-300mg Tablet PO PRN (20:18)
[2019-02-26] MEDS: Insulin Glargine 15 UNITS in Pre-Filled Syringe 1 EACH SC SCH (20:22)
[2019-02-26] MEDS ORDERED: Pregabalin 25 MG CAP PO SCH (21:00)
[2019-02-26] MEDS ORDERED: Insulin Glargine 16 UNITS in Pre-Filled Syringe 1 EACH SC SCH (21:00)
[2019-02-26] MEDS ORDERED: Pre-Filled Syringe 1 EACH SC SCH (21:00)
[2019-02-27 05:51] LABS: Anion Gap 12 mmol/L (10-20); BUN (Urea Nitrogen) 47 mg/dL (9.8-20.1); Calc. Creatinine Clearance 25 mL/min (70-130); Calcium 9.6 mg/dL (7.8-10.44); Carbon Dioxide 32 mmol/L (23-31); Chloride 98 mmol/L (98-107); Estimated GFR-MDRD 26; Glucose 206 mg/dL (83-110); Potassium 3.7 mmol/L (3.5-5.1); Sodium 138 mmol/L (136-145)
[2019-02-27] MEDS: HumaLOG 300 UNITS/3 ML VIAL SC PRN ×3 (06:22→16:17)
[2019-02-27] MEDS: Furosemide 40 MG/4 ML VIAL SLOW IVP SCH ×2 (06:23→14:52)
[2019-02-27] MEDS: Trospium 20 MG TAB PO SCH ×2 (07:57→20:25)
[2019-02-27] MEDS: Pregabalin 50 MG CAP PO SCH ×2 (07:57→20:27)
[2019-02-27] MEDS: Enoxaparin Sodium 40 MG/0.4 ML SYRINGE SC SCH (07:57)
[2019-02-27] MEDS: Aspirin 81 mg Enteric Coated Tablet PO SCH (07:57)
[2019-02-27] MEDS: FLUoxetine HCl 20 MG CAP PO SCH (07:57)
[2019-02-27] MEDS: Multivit, Therapeutic 1 TAB PO SCH (07:58)
[2019-02-27] MEDS: Carvedilol 25 MG TAB PO SCH ×2 (07:58→20:27)
[2019-02-27] MEDS: Amlodipine 5 MG TAB PO SCH ×2 (07:58→20:26)
[2019-02-27] MEDS ORDERED: Polyethylene Glycol 3350 17 GM Packet PO PRN (09:00)
[2019-02-27] MEDS ORDERED: Pregabalin 25 MG CAP PO SCH ×2 (09:00)
[2019-02-27] MEDS ORDERED: Prevnar 13-Val Conj/PF 0.5 ML SYRINGE IM ONE (09:00)
--- NOTE | 2019-02-27 11:58 | PDOC.FM ---
- Subjective Subjective: Seen at bedside this morning resting comfortably, no acute distress. No acute events over night. No new complaints, feels she is breathing easier. - Objective Vital Signs & Weight: Vital Signs (12 hours) Temp Pulse Resp BP Pulse Ox 02/27/19 10:48 97.4 F L 64 20 133/65 95 02/27/19 08:00 97.9 F 73 20 142/87 H 93 L 02/27/19 07:58 82 02/27/19 06:00 82 149/64 H 02/27/19 04:00 97.7 F 70 18 120/66 93 L 02/27/19 00:00 97.9 F 77 18 128/67 94 L Weight Weight 76.249 kg I&O: 02/26/19 02/27/19 02/28/19 06:59 06:59 06:59 Intake Total 664 240 Balance 664 240 Result Diagrams: 02/26/19 11:27 02/27/19 05:00 Phys Exam - Physical Examination Constitutional: NAD HEENT: PERRLA, moist MMs Neck: no nodes Respiratory: clear to auscultation bilateral Cardiovascular: RRR 3/6 systolic murmur, radiates to carotid Musculoskeletal: no edema Neurological: non-focal, moves all 4 limbs Lymphatic: no nodes Psychiatric: normal affect, A&O x 3 Skin: no rash, normal turgor Dx/Plan (1) Acute on chronic diastolic (congestive) heart failure Code(s): I50.33 - ACUTE ON CHRONIC DIASTOLIC (CONGESTIVE) HEART FAILURE Status : Acute (2) Acute respiratory failure with hypoxia Code(s): J96.01 - ACUTE RESPIRATORY FAILURE WITH HYPOXIA Status: Resolved (3) CAD (coronary artery disease) Code(s): I25.10 - ATHSCL HEART DISEASE OF [place] CORONARY ARTERY W/O ANG PCTRS Status: Chronic (4) Chronic kidney disease, stage III (moderate) Code(s): N18.3 - CHRONIC KIDNEY DISEASE, STAGE 3 (MODERATE) Status: Chronic (5) DM type 2 (diabetes mellitus, type 2) Status: Chronic Qualifiers: Diabetes mellitus alf insulin use: unspecified intermediate card tender insulin use status Diabetes mellitus complication status: with kidney complications Diabetes mellitus complication detail: with chronic kidney disease Chronic kidney disease stage: stage 4 (severe) Qualified Code(s): E11.22 - Type 2 diabetes mellitus with diabetic chronic kidney disease; N18.4 - Chronic kidney disease, stage 4 (severe) (6) GERD (gastroesophageal reflux disease) Code(s): K21.9 - GASTRO-ESOPHAGEAL REFLUX DISEASE WITHOUT ESOPHAGITIS Status: Chronic (7) HLD (hyperlipidemia) Code(s): E78.5 - HYPERLIPIDEMIA, UNSPECIFIED Status: Chronic - Plan Plan: 1. Acute on chronic CHFpEF - patient is doing much better today, no longer requiring O2 and lungs are clear. - will continue to monitor output for the next day - no changes in home meds at this time 2. CAD - continue home meds 3. CKD - at baseline 4. DM2 - continue home meds - SSI as needed - glucose continues to be elevated, however is improving - accucheck ACHS - low carb diet 5. HTN - home meds, controlled bp Dispo: doing well, expect dc in am
--- NOTE | 2019-02-27 13:59 | HP ---
ADDENDUM: Please see the history and physical done by Dr. Nichelle Lawson for which I agree. The patient was seen and evaluated, discussed and examined with the residents. HISTORY OF PRESENT ILLNESS: This is an 88-year-old female, who was admitted about 6 weeks ago for congestive heart failure exacerbation. At that time, her ejection fraction was preserved, thought to be diastolic dysfunction, but comes with a 2 to 3-day history of increasing shortness of breath. Unclear why it sounds like she is compliant on her medicines, not eating a lot of salt, not drinking excessive fluids. She started getting more short of breath and winded and with more edema. She came in to the ER, was given IV Lasix in the emergency room. O2 sat was in the 80s on room air in the emergency room. ALLERGIES: REVIEWED WITH DR. LAWSON' HISTORY AND PHYSICAL FOR WHICH I AGREE. HOME MEDICATIONS: Reviewed with Dr. Lawson' history and physical for which I agree. PAST MEDICAL HISTORY: Reviewed with Dr. Lawson' history and physical for which I agree. PAST SURGICAL HISTORY: Reviewed with Dr. Lawson' history and physical for which I agree. FAMILY HISTORY: Reviewed with Dr. Lawson' history and physical for which I agree. SOCIAL HISTORY: Reviewed with Dr. Lawson' history and physical for which I agree. REVIEW OF SYSTEMS: Reviewed with Dr. Lawson' history and physical for which I agree. PHYSICAL EXAMINATION: VITAL SIGNS: On exam, blood pressure was initially slightly elevated. Pulse rate in the 80s. No apparent distress. 95% on 2 L. Lying flat, breathing comfortably. GENERAL: Alert and oriented x3. HEENT: Conjunctiva not pale. Anicteric. NECK: No JVD or bruits. CHEST: Some decreased breath sounds at the bases. HEART: Regular rate and rhythm with grade 3/6 systolic murmur. ABDOMEN: Soft, nontender, and nondistended. EXTREMITIES: Trace edema at most. Her left third toe at the tuft has a little area of slight sore decubitus. BLOOD WORKUP: Hemoglobin 11.4, that is chronic. Creatinine is 1.87, not fairly chronic. Her BNP in the 300 range. It is also basically her baseline. EKG, left bundle branch block. Chest x-ray significant for cardiomegaly and a little bit of fluid overload. ASSESSMENT: 1. Congestive heart failure flare up and diastolic congestive heart failure. 2. Hypoxia. 3. Reflux. 4. Coronary artery disease history. 5. Hypertension. PLAN: Will be admitted, IV Lasix, continue nasal cannula O2. Strict I's and O's. Continue home medications. Aspirin for prevention and prophylaxis. We will follow cardiac enzymes. Otherwise, will continue same medications. Job ID: [id number]
--- NOTE | 2019-02-27 16:04 | PRG ---
DATE OF SERVICE: 02/27/2019 ADDENDUM: Please add this as an addendum to the note of Dr. Raheem Mai. Ms. Moralez is a very pleasant, alert 88-year-old lady with a history of heart failure, preserved ejection fraction. She was admitted with some shortness of breath and perhaps increased fluid retention. She has responded well to an increase in her Lasix dosage at least one dose of which was given IV. She already looks and feels much better this morning. She also follows with Dr. Harvey, the Cardiology Service. She can likely be discharged later today or tomorrow with followup with Cardiology later. Job ID: [id number]
[2019-02-27] MEDS: cloNIDine 0.2 MG TAB PO SCH (20:25)
[2019-02-27] MEDS: Zolpidem Tartrate 5 MG TAB PO SCH (20:27)
[2019-02-27] MEDS: Acetaminophen/Codeine 30-300mg Tablet PO PRN (20:27)
[2019-02-27] MEDS: Insulin Glargine 15 UNITS in Pre-Filled Syringe 1 EACH SC SCH (20:28)
[2019-02-28 06:30] LABS: Anion Gap 12 mmol/L (10-20); BUN (Urea Nitrogen) 50 mg/dL (9.8-20.1); Calc. Creatinine Clearance 24 mL/min (70-130); Calcium 9.5 mg/dL (7.8-10.44); Carbon Dioxide 36 mmol/L (23-31); Chloride 99 mmol/L (98-107); Estimated GFR-MDRD 24; Glucose 111 mg/dL (83-110); Potassium 3.3 mmol/L (3.5-5.1); Sodium 144 mmol/L (136-145)
[2019-02-28] MEDS: Furosemide 40 MG/4 ML VIAL SLOW IVP SCH (06:33)
[2019-02-28] MEDS: Trospium 20 MG TAB PO SCH (08:15)
[2019-02-28] MEDS: FLUoxetine HCl 20 MG CAP PO SCH (08:15)
[2019-02-28] MEDS: Amlodipine 5 MG TAB PO SCH (08:15)
[2019-02-28] MEDS: Enoxaparin Sodium 40 MG/0.4 ML SYRINGE SC SCH (08:15)
[2019-02-28] MEDS: Carvedilol 25 MG TAB PO SCH (08:16)
[2019-02-28] MEDS: Aspirin 81 mg Enteric Coated Tablet PO SCH (08:16)
[2019-02-28] MEDS: Pregabalin 50 MG CAP PO SCH (08:16)
[2019-02-28] MEDS: Multivit, Therapeutic 1 TAB PO SCH (08:17)
[2019-02-28] MEDS ORDERED: Furosemide 20 MG TAB PO SCH (09:00)
[2019-02-28] MEDS ORDERED: Potassium Chloride 20 MEQ TAB PO SCH (09:00)
--- NOTE | 2019-02-28 09:30 | PDOC.FM ---
- Subjective Subjective: Seen at bedside this morning resting comfortably. No acute events over night. No new complaints - Objective MAR Reviewed: Yes Vital Signs & Weight: Vital Signs (12 hours) Temp Pulse Resp BP BP Pulse Ox 02/28/19 08:15 68 153/70 H 02/28/19 08:00 95 02/28/19 07:43 98.2 F 68 16 153/70 H 98 02/28/19 04:00 97.8 F 65 18 151/70 H 96 02/28/19 00:00 98.5 F 65 18 138/71 95 Weight Weight 75.432 kg I&O: 02/27/19 02/28/19 03/01/19 06:59 06:59 06:59 Intake Total 664 2074 Output Total 2350 Balance 664 -708 Result Diagrams: 02/26/19 11:27 02/28/19 05:32 Phys Exam - Physical Examination Constitutional: NAD HEENT: moist MMs Respiratory: clear to auscultation bilateral 3/6 systolic murmur Gastrointestinal: soft, non-tender, no distention Musculoskeletal: no edema Neurological: normal sensation, moves all 4 limbs Psychiatric: normal affect, A&O x 3 Skin: no rash Dx/Plan (1) Acute on chronic diastolic (congestive) heart failure Code(s): I50.33 - ACUTE ON CHRONIC DIASTOLIC (CONGESTIVE) HEART FAILURE Status : Acute (2) Acute respiratory failure with hypoxia Code(s): J96.01 - ACUTE RESPIRATORY FAILURE WITH HYPOXIA Status: Resolved (3) CAD (coronary artery disease) Code(s): I25.10 - ATHSCL HEART DISEASE OF [place] CORONARY ARTERY W/O ANG PCTRS Status: Chronic (4) Chronic kidney disease, stage III (moderate) Code(s): N18.3 - CHRONIC KIDNEY DISEASE, STAGE 3 (MODERATE) Status: Chronic (5) DM type 2 (diabetes mellitus, type 2) Status: Chronic Qualifiers: Diabetes mellitus rn long term care insulin use: unspecified rn long term care insulin use status Diabetes mellitus complication status: with kidney complications Diabetes mellitus complication detail: with chronic kidney disease Chronic kidney disease stage: stage 4 (severe) Qualified Code(s): E11.22 - Type 2 diabetes mellitus with diabetic chronic kidney disease; N18.4 - Chronic kidney disease, stage 4 (severe) (6) GERD (gastroesophageal reflux disease) Code(s): K21.9 - GASTRO-ESOPHAGEAL REFLUX DISEASE WITHOUT ESOPHAGITIS Status: Chronic (7) HLD (hyperlipidemia) Code(s): E78.5 - HYPERLIPIDEMIA, UNSPECIFIED Status: Chronic (8) Hypokalemia Code(s): E87.6 - HYPOKALEMIA Status: Acute (9) Metabolic alkalosis Code(s): E87.3 - [place]AL[place]IS Status: Acute - Plan Plan: 1. Acute on chronic CHFpEF - off of O2, though required after PT yesterday. - will continue to monitor today, consider dc when she is able to walk without O2 - no changes in home meds at this time - dc IV lasix, return to home PO 2. Hypokalemia - replace PO. Likely dt increased lasix 3. Contraction Alkalosis - related to lasix. Manage as above. Repeat BMP in am 4. CAD - continue home meds 5. CKD - at baseline 6. DM2 - continue home meds - SSI as needed - glucose continues to be elevated, however is improving - accucheck ACHS - low carb diet 7. HTN - home meds, controlled bp Dispo: doing well, expect dc today or in am Addendum - Attending - Attending Attestation Date/Time: 02/28/19 1216 I personally evaluated the patient and discussed the management with Dr. Mai. I agree with the History, Examination, Assessment and Plan documented above with any addition or exceptions noted below. Patient reports she is 110% better. Lungs CTAB, no inc wob. No peripheral edema. Change to PO lasix, replete K, f/u with PCP. She is doing very well. We discussed return precautions.
[2019-02-28] MEDS: Acetaminophen/Codeine 30-300mg Tablet PO PRN (11:26)
[2019-02-28 16:31] VITALS: BP 125/68; TEMP 98
[2019-02-28] MEDS: HumaLOG 300 UNITS/3 ML VIAL SC PRN (16:47)
--- NOTE | 2019-03-02 02:34 | DIS ---
DATE OF ADMISSION: 02/26/2019 DATE OF DISCHARGE: 02/28/2019 ADMITTING ATTENDING: Jayden Wood MD. DISCHARGE ATTENDING: Salvatore Salazar MD. RESIDENT: Raheem Mai DO. CONSULTATIONS: None. PROCEDURES: Chest x-ray on 02/26, with a finding of congestive heart failure with changes of cardiomegaly, edema, and a small effusion. ADMITTING DIAGNOSES: Exacerbation of chronic congestive heart failure with preserved ejection fraction. Acute hypoxic respiratory failure. SECONDARY DIAGNOSES: 1. Anxiety and depression. 2. Coronary artery disease. 3. Chronic kidney disease 4. 4. Gastroesophageal reflux disease. 5. Hyperlipidemia. 6. Hypertension. 7. Chronic normocytic anemia. 8. Physical deconditioning. DISCHARGE MEDICATIONS: 1. MiraLAX 17 g p.o. every other day p.r.n. for constipation. 2. Protonix 40 mg p.o. daily. 3. Zofran 4 mg p.o. q.8 p.r.n. nausea, vomiting. 4. Multivitamin one tab p.o. daily. 5. Nitroglycerin 0.4 mg sublingual as needed for chest pain. 6. Lyrica 25 mg capsule, 50 mg p.o. b.i.d. 7. Tylenol No.3 one tab p.o. q.6 p.r.n. pain. 8. Norvasc 5 mg p.o. b.i.d. 9. Coreg 25 mg p.o. b.i.d. 10. Aspirin 81 mg p.o. daily. 11. Lasix 20 mg p.o. daily. 12. Clonidine 0.2 mg p.o. at bedtime. 13. Ambien 5 mg p.o. at bedtime. 14. Lamisil cream 1 g topical b.i.d. as needed for tinea. 15. VESIcare 5 mg p.o. q.a.m. 16. Fluoxetine 20 mg p.o. q.a.m. 17. Protonix 40 mg p.o. q.a.m. HOSPITAL COURSE: This is an 88-year-old female who presented to the emergency room with complaint of shortness of breath and edema, who was diagnosed with acute exacerbation of her chronic diastolic heart failure. At time of admission, she had a new oxygen requirement of 2 L wears at home. She was on no oxygen. The patient was placed on fluid restrictions and given an increased dose of Lasix from her baseline 20 mg. At the time of admission, she had a BNP of 347, which is similar to the 337 that was documented in December when she was previously admitted for a CHF exacerbation. Other significant lab values; creatinine 1.87, which is the patient's baseline and an elevated glucose into the 400s. The patient had a hemoglobin of 11.4, which is also at baseline. Otherwise, all lab values were within normal limits at time of admission. Over the course of the hospitalization, the patient diuresed quickly and oxygen requirement improved. By the 2nd day of admission, the patient at rest required oxygen; however, upon walking, dropped her oxygen saturation. On the following day, the patient required no oxygen and was euvolemic by exam. The patient was discharged home without any changes to her medications as she had been stable for some time on this regimen and is likely due to just increased oral intake, restrict fluid requirements were discussed with the patient prior to discharge and it was recommended the patient follow up with her PCP, Dr. Carter in order to make any adjustments to medications from his point. On discharge, the patient was slightly hypokalemic and did have a contraction alkalosis likely secondary to the Lasix. The potassium was replaced and can be followed in the outpatient setting. DISCHARGE INSTRUCTIONS: 1. Location: Home. 2. Diet: Heart healthy with a fluid restriction of 2400 mL daily. 3. Activity: Ad demar. 4. Follow up with PCP, Dr. Carter within one week. Job ID: [id number]
== END 2019-02-28 18:33 | disposition home or self-care (01) | DRG 291 ==
LOC: ERS 10:46 → T4-B 13:25
PROVIDERS: ADMIT Family Medicine; ATTEND Family Medicine
DX: I13.0 Hypertensive heart and chronic kidney disease with heart failure and stage 1 through stage 4 chronic kidney disease, or unspecified chronic kidney disease (principal); I50.33 Acute on chronic diastolic (congestive) heart failure; J96.01 Acute respiratory failure with hypoxia; N18.4 Chronic kidney disease, stage 4 (severe); E87.3 Alkalosis; I25.10 Atherosclerotic heart disease of native coronary artery without angina pectoris; E11.22 Type 2 diabetes mellitus with diabetic chronic kidney disease; K21.9 Gastro-esophageal reflux disease without esophagitis; F41.9 Anxiety disorder, unspecified; F32.9 Major depressive disorder, single episode, unspecified; G25.81 Restless legs syndrome; M19.90 Unspecified osteoarthritis, unspecified site; E78.5 Hyperlipidemia, unspecified; D63.1 Anemia in chronic kidney disease; E87.6 Hypokalemia; I35.0 Nonrheumatic aortic (valve) stenosis; Z90.710 Acquired absence of both cervix and uterus; Z90.49 Acquired absence of other specified parts of digestive tract; Z88.1 Allergy status to other antibiotic agents; Z88.2 Allergy status to sulfonamides; Z79.82 Long term (current) use of aspirin; Z79.899 Other long term (current) drug therapy
CPT/HCPCS: 36415; 36416; 71045; 80048; 80053; 83880; 84484; 85025; 90471; 90670; 93798; 96374; G0009; J1650; J1825; J1940; Q0162

== ENCOUNTER 2019-04-15 19:57 | Inpatient (IN) | payer MEDICARE, OTHER ==
[2019-04-15] MEDS ORDERED: Morphine 4 MG/ML VIAL ONE (20:26)
[2019-04-15] MEDS ORDERED: Ondansetron PF 4 MG/2 ML Vial ONE (20:28)
[2019-04-15 20:44] LABS: #Eosinphils 0.6 thou/uL (0.0-0.7); #Lymphocytes 1.1 thou/uL (1.20-3.40); #Monocytes 0.4 thou/uL (0.11-0.59); #Neutrophils 6.7 thou/uL (1.40-6.50); %Basophils 0.5 % (0.0-1.0); %Eosinophils 7.1 % (0.0-10.0); %Lymphocytes 12.7 % (21.0-51.0); %Monocytes 3.9 % (0.0-10.0); %Neutrophils 75.8 % (42.0-75.0); Hemoglobin 12.4 g/dL (12.0-16.0); Mean Corpuscular HGB CONC 33.2 g/dL (32.0-36.0); Mean Corpuscular Hemoglobin 29.6 pg (27.0-31.0); Mean Corpuscular Volume 89.2 fL (78.0-98.0); Mean Platelet Volume 8.8 fL (7.4-10.4); Platelet Count 208 thou/uL (130-400); RBC Distribution Width 13.2 % (11.5-14.5); White Blood Cell (WBC) Count 8.9 thou/uL (4.8-10.8)
[2019-04-15 21:06] LABS: ALT (SGPT) 10 U/L (8-55); AST (SGOT) 18 U/L (5-34); Albumin 3.7 g/dL (3.4-4.8); Alkaline Phosphatase 111 U/L (40-150); Anion Gap 16 mmol/L (10-20); BUN (Urea Nitrogen) 53 mg/dL (9.8-20.1); Bilirubin, Total 0.5 mg/dL (0.2-1.2); CK (CPK) 39 U/L (29-168); Calc. Creatinine Clearance 0 mL/min (70-130); Calcium 9.4 mg/dL (7.8-10.44); Carbon Dioxide 24 mmol/L (23-31); Chloride 98 mmol/L (98-107); Estimated GFR-MDRD 23; Globulin 4.3 g/dL (2.4-3.5); Glucose 214 mg/dL (83-110); Lipase 17 U/L (8-78); Potassium 4.9 mmol/L (3.5-5.1); Sodium 133 mmol/L (136-145)
--- NOTE | 2019-04-15 21:09 | RAD ---
CHEST ONE VIEW: 04/15/19 INDICATION: History of chest pain. COMPARISON: Prior exam dated 02/26/19. FINDINGS: Superimposed on the severe interstitial fibrotic change are areas of patchy air space opacity seen th roughout both lungs suspicious for multifocal pneumonia. There is cardiomegaly. No annalisa pleural effu inna or pneumothorax is evident. There is diffuse osteopenia. IMPRESSION: 1. Findings suspicious for multifocal pneumonia. Recommend radiographic follow-up to resolution. 2. The acute infiltrate is superimposed on underlying interstitial fibrotic change of the lungs. POS: BH
[2019-04-15] MEDS ORDERED: Promethazine HCl 25 MG/ML VIAL ONE (21:22)
[2019-04-15] MEDS ORDERED: Acetaminophen 325 MG Suppository ONE (21:42)
[2019-04-15] MEDS ORDERED: Acetaminophen 650 MG Suppository ONE (21:42)
[2019-04-15 21:53] LABS: Bacteria/HPF None Seen HPF (None Seen); Bilirubin Negative (Negative); Blood, Urine Negative (Negative); Clarity Clear (Clear); Glucose, Urine (Dipstick) 50 mg/dL (Negative); Leukocyte Negative Leu/uL (Negative); Mucous/LPF Rare LPF (<2+); Nitrite Negative (Negative); Protein, Urine (Dipstick) 30 mg/dL (Neg-Trace); RBC/HPF 0-3 HPF (0-3); Squamous Epithelial 0-3 HPF (0-3); Urobilinogen Normal mg/dL (Less than 2); WBC/HPF 0-3 HPF (0-3)
--- NOTE | 2019-04-15 21:56 | CT ---
CT abdomen and pelvis noncontrast HISTORY: Left flank pain. COMPARISON: 01/04/2014. FINDINGS: Each renal collecting system, ureter, and urinary bladder are decompressed without stone ap parent. Lack of contrast limits evaluation for other abnormalities. Coarsened interstitial fibrotic changes a t the lung bases. Calcification throughout the arterial structures. Internal fixation right hip. Prominent degenerative changes lumbar spine. Circumferential wall thickening of the entirety of the l eft colon. Stranding in the adjacent fat. No free air or free fluid. Fecal distention of the abnormal portion of the colon with thickened wall. Rectum is decompressed. No focal mass is evident. IMPRESSION: No CT evidence of urinary tract obstruction or calcification. Long segment nonspecific colitis involving the entire the of the left colon. No focal cause is appare nt. Consider stercoral colitis versus infectious colitis versus ischemic colitis. Mild diverticulosis. Atherosclerosis.
[2019-04-15] MEDS ORDERED: cefTRIAXone\\ROCEPHIN 1 GM VIAL ONE (22:18)
[2019-04-15] MEDS ORDERED: metroNIDAZOLE 500 MG/100 ML BAG ONE (22:52)
[2019-04-15] MEDS ORDERED: Vancomycin HCl 1 GM in Sodium Chloride 0.9% 250 ML 300 ML IVPB SCH (23:45)
--- NOTE | 2019-04-16 00:29 | PDOC.FPRHP ---
- History of Present Illness Chief Complaint: ABD Pain History of Present Illness: Mrs. Moralez is a pleasant 88 y/o female who presents to the ED with ABD pain. A full HPI was difficult to obtain because at initial presentation she was febrile, mildly disoriented, and in significant respiratory distress despite the utilization of an O2 rebreathing mask. She states that the pain is mainly left-sided, and that she has not had a bowel movement in 5 days, which is atypical for her. She also endorses back pain. ED Course: Mrs. Moralez met Sepsis criteria on arrival to the ED, with TMax(102.1 - Rectal) and RR(26). She required a non-rebreather facemask. Her SBP fell to the high 80s , but rebounded to 99/52 following the administration of a 500 ml NS bolus. CXR revealed multifocal infiltrates and a ABD CT revealed left-sided colitis. She was administered Vancomycin 1 g IV, Metronidazole 500 mg IV, and Ceftriaxone 1 g IV due to her extensive antibiotic allergies. Vitals: TMax (102.1 - Rectal) HR (88) BP (99/52) RR (24) O2(98% - Non- Rebreather Facemask) - Allergies/Adverse Reactions Allergies Allergy/AdvReac Type Severity Reaction Status Date / Time clarithromycin [From Biaxin] Allergy Unknown Verified 07/27/17 17:20 metoclopramide HCl Allergy Unknown Verified 07/27/17 17:20 [From Reglan] sulfamethoxazole Allergy Unknown Verified 07/27/17 17:20 [From Bactrim] trimethoprim [From Bactrim] Allergy Unknown Verified 07/27/17 17:20 levofloxacin [From Levaquin] AdvReac Mild Nausea Verified 07/27/17 17:20 - Home Medications Medication Instructions Recorded Confirmed Type Polyethylene Glycol 3350 [Miralax] 17 gm PO Q2DAYS PRN 03/14/14 04/16/19 History Ondansetron [Zofran ODT] 4 mg PO Q8HR PRN 11/18/15 04/16/19 History Acetaminophen With Codeine 1 tablet PO Q4HR PRN 07/27/17 04/16/19 History [Tylenol with Codeine #3] Multivit-Minerals/Folic/Ginkgo 1 tablet PO DAILY 07/27/17 04/16/19 History [One Daily For Women 50+ Adv] Pregabalin [Lyrica] 75 mg PO BID 07/27/17 04/16/19 History Carvedilol 25 mg PO BID #1 tablet 07/28/17 04/16/19 Rx Aspirin [Ecotrin Low Strength] 81 mg PO DAILY 11/13/17 04/16/19 History Furosemide [Lasix] 20 mg PO DAILY tab 11/17/17 04/16/19 Rx FLUoxetine HCl 20 mg PO QAM 02/26/19 04/16/19 History Pantoprazole [Protonix] 40 mg PO QAM 02/26/19 04/16/19 History Zolpidem Tartrate [Ambien] 5 mg PO HS PRN 02/26/19 04/16/19 History cloNIDine [Catapres] 0.2 mg PO BID 02/26/19 04/16/19 History Escitalopram Oxalate [Lexapro] 20 mg PO DAILY 04/16/19 04/16/19 History Insulin Detemir [Levemir] 15 unit SQ HS 04/16/19 04/16/19 History Losartan Potassium 25 mg PO DAILY 04/16/19 04/16/19 History hydrALAZINE HCl [Hydralazine HCl] 50 mg PO TID 04/16/19 04/16/19 History - History PMHx: CAD, DM2, HFpEF, HTN, GERD, Anxiety, Depression, Restless Leg Syndrome, Osteoarthritis, CKD4, Aortic Stenosis PSHx: Hysterectomy FHx: Unable to Obtain Social: Unable to Obtain - Review of Systems ROS unobtainable: other (Patient was in respiratory distress, requiring non- rebreather facemask.) Gastrointestinal: reports: nausea, constipation, abdominal pain Skin: reports: lesions ("Diabetic Ulcer" on left 3rd toe.) - Vital signs BP: [99/52] HR: [88] RR: [26] Tmax: [102.1 - Rectal] Pox: [100]% on [Non- Rebreather Facemask] Wt: [76 kg] - Physical Exam Constitutional: awake, alert and oriented, well developed HEENT: normocephalic and atraumatic, PERRLA, conjunctiva clear, no scleral icterus Neck: supple, FROM, trachea midline, no LAD Chest: no-tender to palpation, no lesions Heart: RRR, normal S1/S2, pulses present -Heart: Blowing 3/6 systolic murmur heard diffusely throughout the precordium. Lungs: other (Tachypneic with obvious air hunger. Mild expiratory wheezing with faint crackles heard in the RLL.) Abdomen: soft, bowel sounds present, no masses/distention, other (TTP in left lower quadrant) Musculoskeletal: normal structure, normal tone, ROM grossly normal Neurological: no focal deficit, CN II-XII intact Skin: other (Cap Refill > 2 Seconds) Heme/Lymphatic: no unusual bruising or bleeding, no LAD FMR H&P: Results - Labs Result Diagrams: 04/16/19 01:32 04/16/19 01:31 Lab results: WBC 8.9 thou/uL (4.8-10.8) 04/15/19 20:24 Hgb 12.4 g/dL (12.0-16.0) 04/15/19 20:24 Hct 37.5 % (36.0-47.0) 04/15/19 20:24 MCV 89.2 fL (78.0-98.0) 04/15/19 20:24 Plt Count 208 thou/uL (130-400) 04/15/19 20:24 Neutrophils % 75.8 % (42.0-75.0) H 04/15/19 20:24 Sodium 133 mmol/L (136-145) L 04/15/19 20:25 Potassium 4.9 mmol/L (3.5-5.1) 04/15/19 20:25 Chloride 98 mmol/L (98-107) 04/15/19 20:25 Carbon Dioxide 24 mmol/L (23-31) 04/15/19 20:25 BUN 53 mg/dL (9.8-20.1) H 04/15/19 20:25 Creatinine 2.00 mg/dL (0.6-1.1) H 04/15/19 20:25 Glucose 214 mg/dL (83-110) H 04/15/19 20:25 Lactic Acid 1.2 mmol/L (0.5-2.2) 04/15/19 20:24 Calcium 9.4 mg/dL (7.8-10.44) 04/15/19 20:25 Total Bilirubin 0.5 mg/dL (0.2-1.2) 04/15/19 20:25 AST 18 U/L (5-34) 04/15/19 20:25 ALT 10 U/L (8-55) 04/15/19 20:25 Alkaline Phosphatase 111 U/L (40-150) 04/15/19 20:25 Creatine Kinase 39 U/L (29-168) 04/15/19 20:25 B-Natriuretic Peptide 251.2 pg/mL (0-100) H 04/15/19 22:44 Serum Total Protein 8.0 g/dL (6.0-8.3) 04/15/19 20:25 Albumin 3.7 g/dL (3.4-4.8) 04/15/19 20:25 Lipase 17 U/L (8-78) 04/15/19 20:25 Urine Ketones Negative mg/dL (Negative) 04/15/19 20:55 Urine Blood Negative (Negative) 04/15/19 20:55 Urine Nitrite Negative (Negative) 04/15/19 20:55 Ur Leukocyte Esterase Negative Ranulfo/uL (Negative) 04/15/19 20:55 Urine RBC 0-3 HPF (0-3) 04/15/19 20:55 Urine WBC 0-3 HPF (0-3) 04/15/19 20:55 Ur Squamous Epith Cells 0-3 HPF (0-3) 04/15/19 20:55 Urine Bacteria None Seen HPF (None Seen) 04/15/19 20:55 - Radiology Interpretation Chest x-ray Status: image reviewed by me (Multifocal infiltrates) CT scan - abdomen Status: report reviewed by me (Left sided colitis) Additional comment: Mural thickening of descending colon with fat-stranding. Decompressed rectum. No evidence of free air in ABD. FMR H&P: A/P - Problem List (1) Sepsis Current Visit: Yes Status: Acute Code(s): A41.9 - SEPSIS, UNSPECIFIED ORGANISM (2) Constipation Current Visit: Yes Status: Acute Code(s): K59.00 - CONSTIPATION, UNSPECIFIED (3) Abdominal pain Current Visit: Yes Status: Acute Code(s): R10.9 - UNSPECIFIED ABDOMINAL PAIN (4) Colitis presumed to be due to infection Current Visit: Yes Status: Acute Code(s): K52.9 - NONINFECTIVE GASTROENTERITIS AND COLITIS, UNSPECIFIED (5) Community acquired pneumonia Current Visit: No Status: Acute Code(s): J18.9 - PNEUMONIA, UNSPECIFIED ORGANISM (6) Anxiety and depression Current Visit: No Status: Chronic Code(s): F41.9 - ANXIETY DISORDER, UNSPECIFIED; F32.9 - MAJOR DEPRESSIVE DISORDER, SINGLE EPISODE, UNSPECIFIED (7) CAD (coronary artery disease) Current Visit: No Status: Chronic Code(s): I25.10 - ATHSCL HEART DISEASE OF [place] CORONARY ARTERY W/O ANG PCTRS (8) CKD stage 4 due to type 2 diabetes mellitus Current Visit: No Status: Chronic Code(s): E11.22 - TYPE 2 DIABETES MELLITUS W DIABETIC CHRONIC KIDNEY DISEASE; N18.4 - CHRONIC KIDNEY DISEASE, STAGE 4 (SEVERE) (9) DM type 2 (diabetes mellitus, type 2) Current Visit: No Status: Chronic Qualifiers: Diabetes mellitus adjunct faculty for medical terminology insulin use: unspecified half-way insulin use status Diabetes mellitus complication status: with kidney complications Diabetes mellitus complication detail: with chronic kidney disease Chronic kidney disease stage: stage 4 (severe) Qualified Code(s): E11.22 - Type 2 diabetes mellitus with diabetic chronic kidney disease; N18.4 - Chronic kidney disease, stage 4 (severe) (10) HLD (hyperlipidemia) Current Visit: No Status: Chronic Code(s): E78.5 - HYPERLIPIDEMIA, UNSPECIFIED (11) Hypertension Current Visit: No Status: Chronic Code(s): I10 - ESSENTIAL (PRIMARY) HYPERTENSION Qualifiers: Hypertension type: essential hypertension Qualified Code(s): I10 - Essential (primary) hypertension (12) Normocytic anemia Current Visit: No Status: Chronic Code(s): D64.9 - ANEMIA, UNSPECIFIED (13) Physical deconditioning Current Visit: No Status: Chronic Code(s): R53.81 - OTHER MALAISE (14) CHF (congestive heart failure) Current Visit: Yes Status: Acute Code(s): I50.9 - HEART FAILURE, UNSPECIFIED - Plan 1. Sepsis -TMax(102.1 - Rectal) RR(26) O2(100% - Non-Rebreather Facemask) -Ill-appearing with labile BP -WBC: 8.9 -Lactic Acid: 1.2 -Procalcitonin: Pending -Blood Cultures: Pending -500 ml NS Fluid Bolus -Vancomycin 1 g, Metronidazole 500 mg, Ceftriaxone 1 g administered in ED -Transition to Vancomycin IV with Pharmacy to dose, Zosyn 3.375 g IV Q6H -Consider fluid rescusitation and hold HTN medications if BP remains labile -Admit to IMCU 2. Colitis, presumably due to Infectious Cause -Broad Spectrum Antibiotics initiated -Senna, Dulcolax 3. Hospital Acquired Pneumonia -Broad Spectrum Antibiotics initiated -Continue use of Non-Rebreather facemask, wean when appropriate -Monitor O2 sats 4. CHF -Evaluate fluid status clinically -Trend BNP -Troponin: <0.01 -Continue home medication regimen 5. CKD4 -Evaluate fluid status clinically -Trend Cr -Avoid nephrotoxic agents 6. DM2 -Mild Sliding Scale Insulin -Continue home medication regimen 7. HLD -Continue home medication regimen 8. HTN -Hold home medication regimen until BP stabilizes 9. Normocytic Anemia -Likely chronic -Trend CBC 10. Physical Deconditioning -Likely chronic -Fall precaution Dispo: Admit to IMCU and continue broad-spectrum antibiotic coverage. Monitor 02 sats and respiratory effort. Initiate laxative regimen. Blood cultures pending. FMR H&P: Upper Level - Pertinent history 88 y/o female presents from home via EMS with complaint of abdominal pain, nausea, and constipation. On initial evaluation, patient somnolent and not answering questions without falling back asleep. She received morphine and phenergan which likely contributed to that state. On re-evaluation 30-45 minutes later, patient was more alert, but she was still having difficulty communicating. She appeared short of breath on a non-rebreather. She did voice that she has had constipation for the last 5 days and would like to have a BM. During the discussion, she seemed to be confused, although alert and oriented x3. She states she had a fall last Wednesday, but reported that she did not hurt anything at that time. Patient was unable to tell us when her pain started in the abdomen and what exactly she is feeling. ROS was very difficult to obtain. - Pertinent findings General: Alert and oriented x3, although confused and having difficulty communicating. HEENT: MMM, EOMI, PERRL Card: Harsh 3/6 systolic murmur, RRR Resp: Difficult exam given patient effort, but rhochi audible in left upper lung base Abdomen: Tender to palpation along entire left side. No rebound or guarding. Ext: No edema Neuro: Good mortgage loan reviewer strength, no apparent focal deficits. Skin: Several ulcers/blisters on left lateral thigh, left 3rd digit. Left third digit also with some erythema. - Plan Date/Time: 04/16/195 IAnita, have evaluated this patient and agree with findings/plan as outlined by supply chain intern resident. Pertinent changes/additions are listed here. Acute hypoxic respiratory failure 2/2 multifocal PNA - Likely 2/2 multifocal PNA - Patient febrile and tachypneic, requiring non-rebreather in ED - Repeat CXR in AM - Vanc (04/15) and Zosyn (04/15) renally dosed. Patient allergic to levoquin. - Pharmacy to dose Vanc - Monitor respiratory status - CXR with findings suspicious for multifocal PNA and underlying interstitial lung changes - Urine strep and legionella Ag's pending - Duonebs q4h Sepsis 2/2 colitis (possible stercoral colitis) and multifocal PNA - CT abdomen/pelvis with left sided colitis, concern for stercoral colitis - Will treat colitis with Zosyn (04/15) - See plan above for multifocal PNA treatment - Procalcitonin 0.09. Repeat tomorrow. - CBC with WBC 12.9, Fever to 102.1F, Tachypnea 22 on non-rebreather - NPO for bowel rest - Patient will need to pass bedside swallow before attempt at diet - Patient received only 500 mL of NS given - LA was WNL at 1.2, procal on 0.09 but will repeat - Monitor for BM, give laxatives, consider enema - If no BM, patient may need surgical intervention if this is stercoral colitis as it is associated with high morbidity/mortality - Consider GI consult if pain does not improve or patient does not have BM despite laxatives Colitis, possibly stercoral - Appears left sided - Risk factors for ischemic colitis, however, LA not elevated - Will treat with Zosyn as above - If 2/2 stercoral colitis, then need to disimpact either digitally or via enema as stercoral colitis is associated with high morbidity and mortality associated with perforation and ulceration HFpEF - BNP slightly elevated, but not as high as it has been in the past - Patient at risk for fluid overload and may need lasix - Continue to monitor respiratory status - Strict I&O's - Daily weights - Last echo 12/2018 with EF 50-55%. No mention of diastolic dysfunction at that time. However, mentioned. CAD - Continue home medications when tolerating PO Diabetes mellitus type II - Continue home insulin regimen - Mild SSI - Hypoglycemia protocol - ACHS accuchecks HTN - Patient hypotensive in ED, likely 2/2 sepsis - Will hold home meds until BP stabilized Depression - Continue home medications Anxiety - Continue home medications RLS - Continue home medications OA - Continue home medications CKD stage IV - Monitor kidney function Aortic stenosis - Noted on echo 12/2018 - Patient with systolic murmur DVT PPX: Lovenox Code status: Full code Dispo: Admit to IMCU. Anticipate LOS >48 hours. Addendum - Attending - Attending Attestation Date/Time: 04/15/19 [id number] I personally evaluated the patient and discussed the management with Dr. Valdivia. I agree with the History, Examination, Assessment and Plan documented above with any addition or exceptions noted below. The patient was see in the ER at 2300. She presented with abdominal pain, chills and shortness of breath. She notes constipation for several days. History was difficult to obtain from patient. She is requiring a non- rebreather. Pt noted to have colitis on CT scan and multifocal pneumonia on CXR. BNP mildly elevated. Will treat with broad-spectrum antibiotics. Admit to the IMCU. Wean O2 as able. Will monitor fluid status with a history of CHF.
[2019-04-16] MEDS ORDERED: Bisacodyl 5 MG TAB PO PRN (00:58)
[2019-04-16] MEDS ORDERED: Senokot S 8.6-50 MG TAB PO PRN (00:58)
[2019-04-16] MEDS ORDERED: Ondansetron ODT 4 MG TAB PO PRN (00:58)
[2019-04-16] MEDS ORDERED: Dextrose 50% Abboject 50 ML SYRINGE SLOW IVP PRN (01:22)
[2019-04-16] MEDS ORDERED: Dextrose 5% in Water 1,000 ML IV PRN (01:22)
[2019-04-16 01:40] LABS: #Eosinphils 0.1 thou/uL (0.0-0.7); #Lymphocytes 0.9 thou/uL (1.20-3.40); #Monocytes 0.9 thou/uL (0.11-0.59); %Basophils 0.1 % (0.0-1.0); %Eosinophils 0.4 % (0.0-10.0); %Lymphocytes 6.7 % (21.0-51.0); %Monocytes 7.2 % (0.0-10.0); %Neutrophils 85.6 % (42.0-75.0); Hemoglobin 10.5 g/dL (12.0-16.0); Mean Corpuscular HGB CONC 32.6 g/dL (32.0-36.0); Mean Corpuscular Hemoglobin 29.3 pg (27.0-31.0); Mean Corpuscular Volume 89.8 fL (78.0-98.0); Mean Platelet Volume 8.4 fL (7.4-10.4); Platelet Count 163 thou/uL (130-400); RBC Distribution Width 13.2 % (11.5-14.5); Red Blood Cell (RBC) Count 3.58 mill/uL (4.20-5.40); White Blood Cell (WBC) Count 12.9 thou/uL (4.8-10.8)
[2019-04-16 02:01] LABS: ALT (SGPT) 8 U/L (8-55); AST (SGOT) 14 U/L (5-34); Albumin 2.8 g/dL (3.4-4.8); Alkaline Phosphatase 73 U/L (40-150); Anion Gap 12 mmol/L (10-20); BUN (Urea Nitrogen) 53 mg/dL (9.8-20.1); Bilirubin, Total 0.3 mg/dL (0.2-1.2); Calc. Creatinine Clearance 24 mL/min (70-130); Calcium 8.3 mg/dL (7.8-10.44); Carbon Dioxide 24 mmol/L (23-31); Chloride 104 mmol/L (98-107); Estimated GFR-MDRD 26; Globulin 3.2 g/dL (2.4-3.5); Glucose 183 mg/dL (83-110); Potassium 4.9 mmol/L (3.5-5.1); Sodium 135 mmol/L (136-145)
[2019-04-16] MEDS ORDERED: Polyethylene Glycol 3350 17 GM Packet PO SCH (05:45)
[2019-04-16] MEDS ORDERED: Docusate 100 MG CAP PO SCH (05:45)
--- NOTE | 2019-04-16 06:03 | PDOC.FM ---
- Subjective Subjective: Patient states that she feels better this morning. Had non bloody bm at 4am this morning, she reports that it was mildly difficult to pass. Denies cp, sob, abdominal pain at rest. - Objective Vital Signs & Weight: Vital Signs (12 hours) Temp Pulse Resp BP Pulse Ox 04/16/19 04:00 98.4 F 04/16/19 02:15 66 18 99 04/15/19 23:55 97.9 F 65 16 112/46 L 100 Weight Weight 74.661 kg Result Diagrams: 04/16/19 01:32 04/16/19 01:31 Radiology Reviewed by me: Yes (CXR: multifocal infiltrates, CT left-sided colitis, mural thickening colon) Phys Exam - Physical Examination Constitutional: NAD dry MMs crackles in RLL, on 0.5L nc Cardiovascular: RRR 3/6 holosystolic murmur, known aortic stenosis Gastrointestinal: soft, no distention, positive bowel sounds ttp LLQ Musculoskeletal: no edema Neurological: moves all 4 limbs Psychiatric: normal affect Deviation from normal: cap refill > 2 seconds, poor turgor Dx/Plan (1) Abdominal pain Code(s): R10.9 - UNSPECIFIED ABDOMINAL PAIN Status: Acute (2) CHF (congestive heart failure) Code(s): I50.9 - HEART FAILURE, UNSPECIFIED Status: Acute (3) Colitis presumed to be due to infection Code(s): K52.9 - NONINFECTIVE GASTROENTERITIS AND COLITIS, UNSPECIFIED Status : Acute (4) Constipation Code(s): K59.00 - CONSTIPATION, UNSPECIFIED Status: Acute (5) Sepsis Code(s): A41.9 - SEPSIS, UNSPECIFIED ORGANISM Status: Acute (6) Acute on chronic diastolic (congestive) heart failure Code(s): I50.33 - ACUTE ON CHRONIC DIASTOLIC (CONGESTIVE) HEART FAILURE Status : Acute (7) Acute worsening of stage 3 chronic kidney disease Code(s): N18.3 - CHRONIC KIDNEY DISEASE, STAGE 3 (MODERATE) Status: Acute (8) Community acquired pneumonia Code(s): J18.9 - PNEUMONIA, UNSPECIFIED ORGANISM Status: Acute - Plan Plan: Acute hypoxic respiratory failure 2/2 multifocal PNA - Likely 2/2 multifocal PNA, although CXR looks similar to prior CXR - Patient febrile and tachypneic, requiring non-rebreather in ED, afebrile, non tachy, on 0.5L O2 NC this am - Repeat CXR this AM, pending - Vanc (04/15) and Zosyn (04/15) renally dosed. Patient allergic to levoquin. - Pharmacy to dose Vanc - Continue to monitor respiratory status - CXR with findings suspicious for multifocal PNA, possibly 2/2 underlying interstitial lung changes - Urine strep and legionella Ag's pending - Duonebs q4h #Sepsis 2/2 colitis (possible stercoral colitis) and multifocal PNA - CT abdomen/pelvis: long segment nonspecific colitis involving the entire left colon. No focal cause is apparent. Consider stercoral colitis vs infectious colitis vs ischemic colitis. Mild diverticulosis. Atherosclerosis. Rectum is decompressed. - Started on Zosyn (04/15) - See plan above for multifocal PNA treatment - Procalcitonin 0.09 on admission. Repeat tomorrow. - On admission: CBC with WBC 8.9>12.9, Fever to 102.1F, Tachypnea 22 on non- rebreather -afebrile since admission, not tachycardic, no tachypnea, continue to monitor - Patient will need to pass bedside swallow before attempt at diet - Patient received only 500 mL of NS given in ED - Lactic was WNL at 1.2, procal on 0.09, continue to monitor - Had BM at 4am, non-bloody with mild difficulty to pass - Abdominal XR this afternoon to see progression of stool - f/u stool cultures - Ice chips and possible advancement to clear liquids if passes swallowing test - transfer to tele today #Colitis, possibly stercoral - Appears left sided, involving the entire left colon - Risk factors for ischemic colitis, CAD, DM2, HTN; LA not elevated - Started on Zosyn 04/15 - BM this morning with improvement of abdominal pain reported, continue to monitor - possibility for stercoral colitis: associated with high morbidity and mortality associated with perforation and ulceration - f/u afternoon abdominal xr #HFpEF - BNP 251, previously 347 in february/2019 - received 500ml NS in ED - Patient at risk for fluid overload and may need lasix - appears dry this morning, advancing to ice chips and clears - Continue to monitor respiratory status - Strict I&O's - Daily weights - Last echo 12/2018 - EF 50-55% - No mention of diastolic dysfunction - However, mentioned. #CAD - Continue home medications when tolerating PO #Diabetes mellitus type II - Continue home insulin regimen - Mild SSI - Hypoglycemia protocol - ACHS accuchecks #HTN - Patient hypotensive in ED, likely 2/2 sepsis - received 500ml bolus - continue to monitor - Will hold most of home meds until BP stabilized, continuing valsartan for heart protective benefits #Depression - Continue home medications #Anxiety - Continue home medications #RLS - Continue home medications #OA - Continue home medications #CKD stage IV - creatinine 1.84, BUN 53, GFR 26 - Monitor kidney function #Aortic stenosis - Noted on echo 12/2018 - Patient with systolic murmur DVT PPX: Lovenox Code status: Full code Dispo: Transfer out of [facility] onto tele for vital monitoring, may need sx/gi involvement pending continued progress today. Anticipate LOS >48 hours. Addendum - Attending - Attending Attestation Date/Time: 04/16/19 1015 I personally evaluated the patient and discussed the management with Dr. Hathaway. I agree with the History, Examination, Assessment and Plan documented above with any addition or exceptions noted below. The patient is feeling much better since having a bowel movement early this morning. Her abdominal pain is resolved. WBC increased from 8 to 12. Continue antibiotics. Will try to restart home meds. HEIDY is improving.
[2019-04-16] MEDS: Piperacillin/Tazobactam 3.375 GM in Sodium Chloride 0.9% 100 ML IVPB SCH ×4 (06:25→23:29)
[2019-04-16] MEDS ORDERED: Polyethylene Glycol 3350 17 GM Packet PO PRN (07:25)
[2019-04-16] MEDS ORDERED: Nitroglycerin 0.4 MG TAB (25 Tab Bottle) SL PRN (07:25)
[2019-04-16] MEDS ORDERED: Furosemide 20 MG TAB PO SCH (09:00)
[2019-04-16] MEDS ORDERED: Amlodipine 5 MG TAB PO SCH ×2 (09:00)
[2019-04-16] MEDS ORDERED: Valsartan 80 MG TAB PO SCH (09:00)
[2019-04-16] MEDS ORDERED: Prevnar 13-Val Conj/PF 0.5 ML SYRINGE IM ONE (09:00)
[2019-04-16] MEDS ORDERED: hydrALAZINE 25 MG TAB PO SCH (09:00)
[2019-04-16] MEDS: Pregabalin 25 MG CAP PO SCH ×2 (09:20→20:18)
[2019-04-16] MEDS: Carvedilol 25 MG TAB PO SCH ×2 (09:20→20:17)
[2019-04-16] MEDS: FLUoxetine HCl 20 MG CAP PO SCH (09:20)
[2019-04-16] MEDS: Aspirin 81 mg Enteric Coated Tablet PO SCH (09:20)
[2019-04-16] MEDS: Enoxaparin Sodium 30 MG/0.3 ML SYRINGE SC SCH (09:21)
[2019-04-16] MEDS: Trospium 20 MG TAB PO SCH ×2 (09:21→20:18)
[2019-04-16] MEDS: Multivitamin W/ Minerals 1 TAB PO SCH (09:21)
[2019-04-16] MEDS: Insulin Glargine 15 UNITS in Pre-Filled Syringe 1 EACH SC SCH (09:31)
--- NOTE | 2019-04-16 10:40 | RAD ---
CHEST 1 VIEW: Date: 04/16/19 INDICATION: Multifocal pneumonia. COMPARISON: Prior exam dated 04/15/19. FINDINGS: There is improvement in the bilateral air space opacities reflecting improving pneumonia or edema. Ca rdiomegaly persists. Chronic lung changes are stable. No acute osseous abnormality is evident. IMPRESSION: 1. Improving pneumonia or edema. 2. Stable cardiomegaly. 3. Stable chronic lung changes. POS: BH
[2019-04-16 10:42] LABS: Legionella Urinary Ag Negative (Negative); Strep pneumo Urine Ag NEGATIVE (NEGATIVE)
[2019-04-16] MEDS ORDERED: metroNIDAZOLE 500 MG in Premix Bag 1 BAG IVPB SCH (11:00)
--- NOTE | 2019-04-16 13:21 | RAD ---
Exam: Abdomen 2 views HISTORY: History of colitis COMPARISON: CT the abdomen and pelvis dated April 15, 2019 FINDINGS: 2 views of the abdomen demonstrates a nonspecific, nonobstructive bowel gas pattern. There is thoracolumbar scoliosis. Lung bases are clear. No pneumoperitoneum is evident. There is partial visualization of a cephalhematoma shoulder device fixating the right hip. IMPRESSION: Unremarkable exam
[2019-04-16] MEDS: Lactated Ringer's 500 ML IV SCH (14:39)
[2019-04-16] MEDS: Docusate 100 MG CAP PO SCH (20:18)
[2019-04-16] MEDS ORDERED: cloNIDine 0.2 MG TAB PO SCH (21:00)
[2019-04-16] MEDS ORDERED: cefTRIAXone\\ROCEPHIN 1 GM in Sodium Chloride 0.9% 100 ML IVPB SCH (22:00)
[2019-04-16 23:25] LABS: Vancomycin, Random 10.9 ug/mL (See Comment)
[2019-04-16] MEDS: Zolpidem Tartrate 5 MG TAB PO PRN (23:28)
[2019-04-16] MEDS: Vancomycin HCl 750 MG in Sodium Chloride 0.9% 250 ML 250 ML IVPB SCH (23:44)
[2019-04-16] MEDS ORDERED: Vancomycin HCl 1 GM in Premix Bag 1 BAG IVPB SCH (23:59)
[2019-04-17] MEDS: Piperacillin/Tazobactam 3.375 GM in Sodium Chloride 0.9% 100 ML IVPB SCH ×3 (05:09→18:10)
--- NOTE | 2019-04-17 06:57 | PDOC.FM ---
- Subjective Subjective: Pt states that her abdominal pain has improved yesterday following 2 BM's. She notes feeling generalized weakness and dyspnea with exertion but notes some mild interval improvement with her SOB at rest. Pt is hopeful to go home early this week. Discussed with her the importance of making sure she has not supplemental O2 requirements before going home and she voiced understanding. - Objective Vital Signs & Weight: Vital Signs (12 hours) Temp Pulse Resp BP Pulse Ox 04/17/19 06:36 93 L 04/17/19 06:35 93 16 04/17/19 04:00 98.4 F 96 16 152/64 H 94 L 04/17/19 02:16 93 16 100 04/16/19 23:00 98.1 F 76 20 159/73 H 92 L 04/16/19 22:41 82 20 88 L 04/16/19 20:00 77 16 162/72 H 98 04/16/19 19:50 98.5 F 78 16 146/67 H 98 Weight Weight 74.661 kg Most Recent Monitor Data Heart Rate from ECG 62 NIBP 129/53 NIBP BP-Mean 78 Respiration from ECG 11 SpO2 100 I&O: 04/15/19 04/16/19 04/17/19 06:59 06:59 06:59 Intake Total 110 Balance 110 Result Diagrams: 04/17/19 07:20 04/17/19 07:20 Phys Exam - Physical Examination Constitutional: NAD HEENT: PERRLA slightly dry MM Neck: full ROM Respiratory: no wheezing Diffuse rales in all palomares, decreased excursion, slightly diminished Cardiovascular: RRR 4/6 Holosytolic murmur, best heard at aortic post but audible at all posts Gastrointestinal: soft, non-tender, no distention, positive bowel sounds Musculoskeletal: no edema, pulses present Neurological: non-focal, moves all 4 limbs Skin: no rash Dx/Plan (1) Colitis presumed to be due to infection Code(s): K52.9 - NONINFECTIVE GASTROENTERITIS AND COLITIS, UNSPECIFIED Status : Acute (2) Community acquired pneumonia Code(s): J18.9 - PNEUMONIA, UNSPECIFIED ORGANISM Status: Acute (3) Constipation Code(s): K59.00 - CONSTIPATION, UNSPECIFIED Status: Acute (4) Sepsis Code(s): A41.9 - SEPSIS, UNSPECIFIED ORGANISM Status: Acute (5) Leukocytosis Code(s): D72.829 - ELEVATED WHITE BLOOD CELL COUNT, UNSPECIFIED Status: Acute (6) Acute respiratory failure with hypoxia Code(s): J96.01 - ACUTE RESPIRATORY FAILURE WITH HYPOXIA Status: Resolved (7) Acute worsening of stage 3 chronic kidney disease Code(s): N18.3 - CHRONIC KIDNEY DISEASE, STAGE 3 (MODERATE) Status: Acute - Plan Plan: Acute hypoxic respiratory failure 2/2 multifocal PNA Likely 2/2 multifocal PNA, although CXR looks similar to prior CXR - Patient febrile and tachypneic, requiring non-rebreather in ED, temp of 100.1 and O2 93% on 3L NC this am - Vanc (04/15) and Zosyn (04/15) renally dosed. Patient allergic to levoquin. - Pharmacy to dose Vanc - Continue to monitor respiratory status - CXR with findings suspicious for multifocal PNA, possibly 2/2 underlying interstitial lung changes - Urine strep and legionella Ag's negative - Duonebs q4h - Leukocytosis has resolved - Interval improvement of pna vs edema on CXR yesterday Colitis, possibly stercoral CT abdomen/pelvis: long segment nonspecific colitis involving the entire left colon. No focal cause is apparent. Consider stercoral colitis vs infectious colitis vs ischemic colitis. Mild diverticulosis. Atherosclerosis. Rectum is decompressed. - Appears left sided, involving the entire left colon - Risk factors for ischemic colitis, CAD, DM2, HTN; LA not elevated - Started on Zosyn 04/15 - Multiple BM yesterday with abdominal pain improvement - Abx xray yesterday shows non-obstructive bowel gas pattern, no acute findings - Positive fecal lactoferrin, negative stool culture studies Sepsis 2/2 colitis and multifocal PNA On admission: Fever to 102.1F, Tachypnea 22 on non-rebreather - Started on Zosyn (04/15) - Procalcitonin 0.09 on admission - CBC with WBC 8.9>12.9>8.6 - Afebrile since admission - Patient will need to pass bedside swallow before attempt at diet - Patient received only 500 mL of NS given in ED - Lactic was WNL at 1.2, procal on 0.09, continue to monitor HFpEF - BNP 251, previously 347 in february/2019 - Strict I&O's - Daily weights - Last echo 12/2018 - EF 50-55%, Aortic stenosis Diabetes mellitus type II - Continue home insulin regimen - Mild SSI - Hypoglycemia protocol - ACHS accuchecks HTN - Patient hypotensive in ED, likely 2/2 sepsis - received 500ml bolus - Home BP meds stopped - Now hypertensive, will begin selectively restarting home HTN rx CKD stage IV - creatinine 1.84 > 2.03 - BUN 53 > 42 - Monitor kidney function Aortic stenosis - Noted on echo 12/2018 - Patient with systolic murmur DVT PPX: Lovenox Code status: Full code Dispo: Pt is clinically improving and labs look better, will need to see improvement in O2 sat off of supplemental O2 before DC
[2019-04-17 07:37] LABS: #Eosinphils 0.3 thou/uL (0.0-0.7); #Lymphocytes 1.3 thou/uL (1.20-3.40); #Monocytes 0.8 thou/uL (0.11-0.59); #Neutrophils 6.2 thou/uL (1.40-6.50); %Basophils 0.3 % (0.0-1.0); %Eosinophils 3.8 % (0.0-10.0); %Monocytes 8.8 % (0.0-10.0); %Neutrophils 72.2 % (42.0-75.0); Hemoglobin 10.7 g/dL (12.0-16.0); Mean Corpuscular HGB CONC 32.3 g/dL (32.0-36.0); Mean Corpuscular Hemoglobin 29.5 pg (27.0-31.0); Mean Corpuscular Volume 91.5 fL (78.0-98.0); Mean Platelet Volume 8.2 fL (7.4-10.4); Platelet Count 171 thou/uL (130-400); RBC Distribution Width 13.3 % (11.5-14.5); Red Blood Cell (RBC) Count 3.63 mill/uL (4.20-5.40); White Blood Cell (WBC) Count 8.6 thou/uL (4.8-10.8)
[2019-04-17 08:04] LABS: Anion Gap 12 mmol/L (10-20); BUN (Urea Nitrogen) 42 mg/dL (9.8-20.1); Calc. Creatinine Clearance 22 mL/min (70-130); Calcium 8.9 mg/dL (7.8-10.44); Carbon Dioxide 26 mmol/L (23-31); Chloride 104 mmol/L (98-107); Estimated GFR-MDRD 23; Glucose 91 mg/dL (83-110); Potassium 4.5 mmol/L (3.5-5.1); Sodium 137 mmol/L (136-145)
[2019-04-17] MEDS: Trospium 20 MG TAB PO SCH ×2 (09:02→20:41)
[2019-04-17] MEDS: Docusate 100 MG CAP PO SCH ×3 (09:02→20:42)
[2019-04-17] MEDS: Aspirin 81 mg Enteric Coated Tablet PO SCH (09:03)
[2019-04-17] MEDS: Pregabalin 25 MG CAP PO SCH (09:03)
[2019-04-17] MEDS: Carvedilol 25 MG TAB PO SCH ×2 (09:03→20:43)
[2019-04-17] MEDS: Multivitamin W/ Minerals 1 TAB PO SCH (09:03)
[2019-04-17] MEDS: Enoxaparin Sodium 30 MG/0.3 ML SYRINGE SC SCH (09:04)
[2019-04-17] MEDS: FLUoxetine HCl 20 MG CAP PO SCH (09:04)
[2019-04-17] MEDS: Insulin Glargine 15 UNITS in Pre-Filled Syringe 1 EACH SC SCH (09:04)
[2019-04-17] MEDS: Polyethylene Glycol 3350 17 GM Packet PO SCH (09:05)
--- NOTE | 2019-04-17 12:04 | PRG ---
DATE OF SERVICE: 04/17/2019 Ms. Moralez is still having some shortness of breath. Her O2 saturation on 3 L is 93%. Her chest x-ray is actually looking improved. She has no physical exam evidence of DVT. We will continue to monitor and should she deteriorate, I would recommend an ABG to make certain she is not developing hypercarbia. In the interim, we will continue with her broad-spectrum antibiotics. Job ID: [id number]
[2019-04-17] MEDS ORDERED: Losartan 25 MG TAB PO SCH (13:00)
[2019-04-17] MEDS ORDERED: Acetaminophen 325 MG TAB PO PRN (16:18)
[2019-04-17 16:35] LABS: Actual Bicarbonate (HCO3a) 25.9 mEq/L (22-28); CO2 Tension 47.8 mmHg (35.0-45.0); Calcium, Ionized 1.19 mmol/L (1.12-1.30); Carboxyhemoglobin (COHb) 1.4 gm% (0.0-3.0); Hemoglobin (Hb) 10.5 g/dL (12.0-16.0); Potassium - ABG Lab 4.33 mmol/L (3.70-5.30); pH, Arterial 7.35 (7.35-7.45)
[2019-04-17 16:40] LABS: Puncture Site LRA
[2019-04-17] MEDS: Pregabalin 50 MG CAP PO SCH (20:40)
[2019-04-17] MEDS: Ondansetron ODT 4 MG TAB PO PRN (20:41)
[2019-04-17] MEDS: Zolpidem Tartrate 5 MG TAB PO PRN (20:48)
[2019-04-18] MEDS: Vancomycin HCl 750 MG in Sodium Chloride 0.9% 250 ML 250 ML IVPB SCH (00:36)
[2019-04-18] MEDS: Piperacillin/Tazobactam 3.375 GM in Sodium Chloride 0.9% 100 ML IVPB SCH ×4 (00:36→17:04)
[2019-04-18 04:36] LABS: #Eosinphils 0.9 thou/uL (0.0-0.7); #Lymphocytes 1.1 thou/uL (1.20-3.40); #Monocytes 0.9 thou/uL (0.11-0.59); #Neutrophils 6.2 thou/uL (1.40-6.50); %Basophils 0.3 % (0.0-1.0); %Eosinophils 9.8 % (0.0-10.0); %Lymphocytes 11.8 % (21.0-51.0); %Monocytes 10.2 % (0.0-10.0); %Neutrophils 67.8 % (42.0-75.0); Hemoglobin 10.4 g/dL (12.0-16.0); Mean Corpuscular HGB CONC 32.3 g/dL (32.0-36.0); Mean Corpuscular Hemoglobin 29.7 pg (27.0-31.0); Mean Corpuscular Volume 91.8 fL (78.0-98.0); Mean Platelet Volume 8.4 fL (7.4-10.4); Platelet Count 165 thou/uL (130-400); RBC Distribution Width 12.9 % (11.5-14.5); Red Blood Cell (RBC) Count 3.51 mill/uL (4.20-5.40); White Blood Cell (WBC) Count 9.1 thou/uL (4.8-10.8)
[2019-04-18 04:54] LABS: Anion Gap 10 mmol/L (10-20); BUN (Urea Nitrogen) 33 mg/dL (9.8-20.1); Calc. Creatinine Clearance 28 mL/min (70-130); Calcium 9.4 mg/dL (7.8-10.44); Carbon Dioxide 29 mmol/L (23-31); Chloride 105 mmol/L (98-107); Estimated GFR-MDRD 30; Glucose 65 mg/dL (83-110); Potassium 4.3 mmol/L (3.5-5.1); Sodium 140 mmol/L (136-145)
--- NOTE | 2019-04-18 06:10 | PDOC.FM ---
- Subjective Subjective: Pt states that she started to feel worse throughout the night with aches and chills. She states that she continues to feel sleepy and SOB at times. She has not had any additional BM's since 04/16. Denies any N/V or worsening abdominal pain. - Objective Vital Signs & Weight: Vital Signs (12 hours) Temp Pulse Resp BP Pulse Ox 04/18/19 04:00 98 F 83 16 167/79 H 96 04/18/19 02:18 12 04/18/19 00:00 98.1 F 74 16 151/73 H 95 04/17/19 22:12 76 12 04/17/19 20:00 98.3 F 72 16 138/55 L 95 04/17/19 19:29 70 12 98 Weight Admit Weight 74.661 kg Weight 74.661 kg Most Recent Monitor Data Heart Rate from ECG 62 NIBP 129/53 NIBP BP-Mean 78 Respiration from ECG 11 SpO2 100 I&O: 04/16/19 04/17/19 04/18/19 06:59 06:59 06:59 Intake Total 110 950 Balance 110 950 Result Diagrams: 04/18/19 04:05 04/18/19 04:05 Phys Exam - Physical Examination Mild distress secondary to sx HEENT: PERRLA Dry MM Neck: supple, full ROM Respiratory: no wheezing Rales improved since yesterday, worse in lower palomares Cardiovascular: RRR 4/6 holosystolic murmur Gastrointestinal: soft, no distention, positive bowel sounds Mild diffuse tenderness in all quadrants Musculoskeletal: no edema, pulses present Neurological: non-focal, moves all 4 limbs Psychiatric: normal affect, A&O x 3 Skin: no rash, cap refill <2 seconds Dx/Plan (1) Acute respiratory failure with hypoxia Code(s): J96.01 - ACUTE RESPIRATORY FAILURE WITH HYPOXIA Status: Acute (2) Community acquired pneumonia Code(s): J18.9 - PNEUMONIA, UNSPECIFIED ORGANISM Status: Acute (3) Colitis presumed to be due to infection Code(s): K52.9 - NONINFECTIVE GASTROENTERITIS AND COLITIS, UNSPECIFIED Status : Acute (4) Constipation Code(s): K59.00 - CONSTIPATION, UNSPECIFIED Status: Chronic (5) Sepsis Code(s): A41.9 - SEPSIS, UNSPECIFIED ORGANISM Status: Resolved (6) Acute worsening of stage 3 chronic kidney disease Code(s): N18.3 - CHRONIC KIDNEY DISEASE, STAGE 3 (MODERATE) Status: Chronic - Plan Plan: Acute hypoxic respiratory failure 2/2 multifocal PNA New O2 requirement in the setting of likely CAP - Vanc (04/15) and Zosyn (04/15) renally dosed. Patient allergic to levoquin. - Pharmacy to dose Vanc - Continue to monitor respiratory status - Afebrile since admission and start of abx - CXR with findings suspicious for multifocal PNA, interstitial lung dz noted, follow up CXR noted interval improvement in pna vs edema - Urine strep and legionella Ag's negative - Duonebs q4h - Leukocytosis has resolved - ABG yesterday showed mild hypercapnea and hypoxia - Prednisone 20mg daily - Rehab screen ordered Colitis, possibly stercoral CT abdomen/pelvis: long segment nonspecific colitis involving the entire left colon. No focal cause is apparent. Consider stercoral colitis vs infectious colitis vs ischemic colitis. Mild diverticulosis. Atherosclerosis. Rectum is decompressed. - Appears left sided, involving the entire left colon - Started on Zosyn 04/15 - Abx xray yesterday shows non-obstructive bowel gas pattern, no acute findings - Positive fecal lactoferrin, negative stool culture studies - Multiple BM since admission with resolution of abdominal pain - Continue stool softener bowel regimen, cont outpt to prevent recurrence HFpEF - BNP 251, previously 347 in february/2019 - Strict I&O's - Daily weights - Last echo 12/2018: EF 50-55%, Aortic stenosis Diabetes mellitus type II - Continue home insulin regimen - Mild SSI - Hypoglycemia protocol - ACHS accuchecks HTN - Patient hypotensive in ED, likely 2/2 sepsis - received 500ml bolus - Home BP meds stopped - Now hypertensive, will begin selectively restarting home HTN rx CKD stage IV - creatinine 1.84 > 2.03 >1.6 - BUN 53 > 42 - Monitor kidney function DVT PPX: Lovenox Code status: Full code Dispo: Pt is clinically improving and labs look better, will need to see improvement in O2 sat off of supplemental O2 before DC, rehab assessment pending
[2019-04-18] MEDS: predniSONE 20 MG TAB PO SCH (08:51)
[2019-04-18] MEDS: hydrALAZINE 25 MG TAB PO SCH ×3 (08:51→22:08)
[2019-04-18] MEDS: FLUoxetine HCl 20 MG CAP PO SCH (08:51)
[2019-04-18] MEDS: Aspirin 81 mg Enteric Coated Tablet PO SCH (08:51)
[2019-04-18] MEDS: Multivitamin W/ Minerals 1 TAB PO SCH (08:52)
[2019-04-18] MEDS: Pregabalin 50 MG CAP PO SCH ×2 (08:52→22:08)
[2019-04-18] MEDS: Losartan 25 MG TAB PO SCH (08:52)
[2019-04-18] MEDS: Trospium 20 MG TAB PO SCH ×2 (08:52→22:09)
[2019-04-18] MEDS: Enoxaparin Sodium 30 MG/0.3 ML SYRINGE SC SCH (08:53)
[2019-04-18] MEDS: Docusate 100 MG CAP PO SCH ×2 (08:53→22:09)
[2019-04-18] MEDS: Insulin Glargine 15 UNITS in Pre-Filled Syringe 1 EACH SC SCH (08:54)
[2019-04-18] MEDS: Polyethylene Glycol 3350 17 GM Packet PO SCH (08:54)
[2019-04-18] MEDS: Carvedilol 25 MG TAB PO SCH ×2 (08:54→22:07)
[2019-04-18] MEDS: Acetaminophen/Codeine 30-300mg Tablet PO PRN (09:12)
[2019-04-18] MEDS: Ondansetron ODT 4 MG TAB PO PRN (09:13)
--- NOTE | 2019-04-18 11:36 | PRG ---
DATE OF SERVICE: 04/18/2019 Ms. Moralez is currently walking down the hallway, maintaining an O2 saturation of around 90% with exercise. She, however, still appears to be tired and short of breath. She states, however, that she feels better. Her arterial blood gas from yesterday on 3 L O2 showed pH of 7.35, pCO2 of 47.8, and a pO2 of 55. Interestingly, her AA gradient was 113, very elevated. Her bicarb was 25.9. We will continue antibiotics and oxygen treatment. If she continues to tire or not improve, I think a trial of BiPAP might be of benefit. She deserves close monitoring. Job ID: [id number]
[2019-04-18] MEDS: HumaLOG 300 UNITS/3 ML VIAL SC PRN (17:05)
[2019-04-18] MEDS: Zolpidem Tartrate 5 MG TAB PO PRN (22:50)
[2019-04-18 23:53] LABS: Vancomycin, Trough 14.6 ug/mL
[2019-04-19] MEDS: Vancomycin HCl 750 MG in Sodium Chloride 0.9% 250 ML 250 ML IVPB SCH (01:43)
[2019-04-19] MEDS: Acetaminophen/Codeine 30-300mg Tablet PO PRN (02:26)
[2019-04-19] MEDS: Piperacillin/Tazobactam 3.375 GM in Sodium Chloride 0.9% 100 ML IVPB SCH ×5 (03:01→22:26)
[2019-04-19 05:46] LABS: #Eosinphils 0.1 thou/uL (0.0-0.7); #Lymphocytes 1.5 thou/uL (1.20-3.40); #Monocytes 0.9 thou/uL (0.11-0.59); #Neutrophils 5.6 thou/uL (1.40-6.50); %Basophils 0.3 % (0.0-1.0); %Lymphocytes 18.6 % (21.0-51.0); %Monocytes 11.2 % (0.0-10.0); %Neutrophils 68.9 % (42.0-75.0); Hemoglobin 10.2 g/dL (12.0-16.0); Mean Corpuscular HGB CONC 31.7 g/dL (32.0-36.0); Mean Corpuscular Volume 91.5 fL (78.0-98.0); Mean Platelet Volume 8.6 fL (7.4-10.4); Platelet Count 178 thou/uL (130-400); RBC Distribution Width 12.9 % (11.5-14.5); Red Blood Cell (RBC) Count 3.53 mill/uL (4.20-5.40); White Blood Cell (WBC) Count 8.1 thou/uL (4.8-10.8)
[2019-04-19 06:03] LABS: Anion Gap 14 mmol/L (10-20); BUN (Urea Nitrogen) 28 mg/dL (9.8-20.1); Calc. Creatinine Clearance 30 mL/min (70-130); Calcium 9.5 mg/dL (7.8-10.44); Carbon Dioxide 25 mmol/L (23-31); Chloride 105 mmol/L (98-107); Estimated GFR-MDRD 32; Glucose 81 mg/dL (83-110); Potassium 4.6 mmol/L (3.5-5.1); Sodium 139 mmol/L (136-145)
--- NOTE | 2019-04-19 06:20 | PDOC.FM ---
- Subjective Subjective: Pt notes continued improvement in her breathing. States that she is tolerating exercise better. Denies any BM since Wednesday. Denies any abdominal pain at this time. - Objective Vital Signs & Weight: Vital Signs (12 hours) Temp Pulse Resp BP BP Pulse Ox 04/19/19 04:00 97.8 F 79 18 134/60 99 04/19/19 02:16 96 04/19/19 02:15 96 04/19/19 00:00 97.3 F L 82 18 140/67 99 04/18/19 22:20 12 04/18/19 22:08 84 170/88 H 04/18/19 20:05 90 L 04/18/19 20:00 97.5 F L 91 18 190/96 H 90 L 04/18/19 18:22 85 12 96 Weight Admit Weight 74.661 kg Weight 74.661 kg Most Recent Monitor Data Heart Rate from ECG 62 NIBP 129/53 NIBP BP-Mean 78 Respiration from ECG 11 SpO2 100 I&O: 04/17/19 04/18/19 04/19/19 06:59 06:59 06:59 Intake Total 950 820 Balance 950 820 Result Diagrams: 04/19/19 05:32 04/19/19 05:32 Phys Exam - Physical Examination Constitutional: NAD HEENT: PERRLA, moist MMs Neck: supple, full ROM Respiratory: no wheezing, no rhonchi mild crackles in bilateral bases Cardiovascular: RRR, no rub Holosystolic murmur Gastrointestinal: soft, non-tender, no distention, positive bowel sounds Musculoskeletal: no edema, pulses present Neurological: non-focal, moves all 4 limbs Psychiatric: normal affect, A&O x 3 Skin: no rash, cap refill <2 seconds Dx/Plan (1) Acute respiratory failure with hypoxia Code(s): J96.01 - ACUTE RESPIRATORY FAILURE WITH HYPOXIA Status: Acute (2) Community acquired pneumonia Code(s): J18.9 - PNEUMONIA, UNSPECIFIED ORGANISM Status: Acute (3) Colitis presumed to be due to infection Code(s): K52.9 - NONINFECTIVE GASTROENTERITIS AND COLITIS, UNSPECIFIED Status : Acute (4) Constipation Code(s): K59.00 - CONSTIPATION, UNSPECIFIED Status: Chronic (5) Sepsis Code(s): A41.9 - SEPSIS, UNSPECIFIED ORGANISM Status: Resolved (6) Acute worsening of stage 3 chronic kidney disease Code(s): N18.3 - CHRONIC KIDNEY DISEASE, STAGE 3 (MODERATE) Status: Chronic - Plan Plan: Acute hypoxic respiratory failure 2/2 multifocal PNA New O2 requirement in the setting of likely CAP - Vanc (04/15) and Zosyn (04/15) renally dosed. Patient allergic to levoquin. - Pharmacy to dose Vanc - Afebrile since admission and start of abx - CXR with findings suspicious for multifocal PNA, interstitial lung dz noted, follow up CXR noted interval improvement in pna vs edema - Urine strep and legionella Ag's negative - Resp viral panel negative - Duonebs q4h - Leukocytosis has resolved - Prednisone 20mg daily - Rehab screen ordered - Currently 99% on 3L O2, will continue to wean today - CM: Working on SNF placement, pt requests [facility] Colitis, possibly stercoral CT abdomen/pelvis: long segment nonspecific colitis involving the entire left colon. No focal cause is apparent. Consider stercoral colitis vs infectious colitis vs ischemic colitis. Mild diverticulosis. Atherosclerosis. Rectum is decompressed. - Appears left sided, involving the entire left colon - Started on Zosyn 04/15 - Abx xray yesterday shows non-obstructive bowel gas pattern, no acute findings - Positive fecal lactoferrin, negative stool culture studies - Multiple BM since admission with resolution of abdominal pain - Continue stool softener bowel regimen, cont outpt to prevent recurrence - Add lactulose today HFpEF - BNP 251, previously 347 in february/2019 - Strict I&O's - Daily weights - Last echo 12/2018: EF 50-55%, Aortic stenosis Diabetes mellitus type II - Continue home insulin regimen - Mild SSI - Hypoglycemia protocol - ACHS accuchecks HTN - Patient hypotensive in ED, likely 2/2 sepsis - received 500ml bolus - Home BP meds selectively being restarted - Currently SBP ~130s CKD stage IV - creatinine 1.84 > 2.03 > 1.6 > 1.52 - BUN 53 > 42 > 28 - Monitor kidney function DVT PPX: Lovenox Code status: Full code Dispo: Pt is clinically improving and labs look better, will need to see improvement in O2 sat off of supplemental O2 before DC, rehab assessment pending
[2019-04-19] MEDS: predniSONE 20 MG TAB PO SCH (08:37)
[2019-04-19] MEDS ORDERED: predniSONE 20 MG TAB PO SCH (08:45)
[2019-04-19] MEDS: Pregabalin 50 MG CAP PO SCH ×2 (08:45→22:27)
[2019-04-19] MEDS: hydrALAZINE 25 MG TAB PO SCH ×3 (08:45→22:29)
[2019-04-19] MEDS: Multivitamin W/ Minerals 1 TAB PO SCH (08:46)
[2019-04-19] MEDS: Carvedilol 25 MG TAB PO SCH ×2 (08:46→22:30)
[2019-04-19] MEDS: Docusate 100 MG CAP PO SCH (08:46)
[2019-04-19] MEDS: Trospium 20 MG TAB PO SCH ×2 (08:46→22:31)
[2019-04-19] MEDS: FLUoxetine HCl 20 MG CAP PO SCH (08:46)
[2019-04-19] MEDS: Aspirin 81 mg Enteric Coated Tablet PO SCH (08:46)
[2019-04-19] MEDS: Insulin Glargine 15 UNITS in Pre-Filled Syringe 1 EACH SC SCH (08:47)
[2019-04-19] MEDS: Polyethylene Glycol 3350 17 GM Packet PO SCH (08:48)
[2019-04-19] MEDS: Losartan 25 MG TAB PO SCH (08:49)
[2019-04-19] MEDS: Enoxaparin Sodium 30 MG/0.3 ML SYRINGE SC SCH (08:54)
[2019-04-19] MEDS ORDERED: Magnesium Citrate 300 ML BOT PO SCH (09:30)
--- NOTE | 2019-04-19 11:51 | PRG ---
DATE OF SERVICE: 04/19/2019 Ms. Moralez looks and feels better this morning. She is less short of breath. Abdomen is flat and soft without guarding or tenderness. Her vital signs are stable. She is afebrile with a blood pressure of 148/79. Lungs are sounding clearer. Chest x-ray showed improvement yesterday. We will continue our current management and otherwise awaiting a rehab bed placement. Job ID: [id number]
--- NOTE | 2019-04-19 15:29 | EKG ---
Test Reason : Blood Pressure : / mmHG Vent. Rate : 093 BPM Atrial Rate : 086 BPM P-R Int : 000 ms QRS Dur : 134 ms QT Int : 406 ms P-R-T Axes : 000 008 092 degrees QTc Int : 504 ms Wide QRS rhythm with occasional Premature ventricular complexes Non-specific intra-ventricular conduction block Possible Inferior infarct , age undetermined Cannot rule out Anteroseptal infarct , age undetermined T wave abnormality, consider lateral ischemia Abnormal ECG Tremor Artifact Confirmed by LENORA LYON, GIULIANA Siegel ([id number]), electronic news gathering editor CHI OGDEN ([id number]) on 04/19/2019 3:29:16 PM Referred By: Confirmed By:GIULIANA COOLEY MD
[2019-04-19] MEDS: Zolpidem Tartrate 5 MG TAB PO PRN (22:30)
[2019-04-19] MEDS: HumaLOG 300 UNITS/3 ML VIAL SC PRN (22:57)
[2019-04-20] MEDS: Vancomycin HCl 750 MG in Sodium Chloride 0.9% 250 ML 250 ML IVPB SCH (00:52)
[2019-04-20] MEDS: Acetaminophen/Codeine 30-300mg Tablet PO PRN ×2 (02:25→10:39)
[2019-04-20] MEDS: Docusate 100 MG CAP PO SCH ×2 (02:26→09:21)
[2019-04-20] MEDS: Piperacillin/Tazobactam 3.375 GM in Sodium Chloride 0.9% 100 ML IVPB SCH ×3 (04:42→14:24)
--- NOTE | 2019-04-20 05:51 | PDOC.FM ---
- Subjective Subjective: Pt denies any shortness of breath this morning. She states that she almost feels like she could go home. I told her that she is still requiring oxygen right now and assistance with ambulation and that would probably not be in her best interest. She agreed and stated she is glad she is going to [facility] where she has been before. - Objective Vital Signs & Weight: Vital Signs (12 hours) Temp Pulse Resp BP BP Pulse Ox 04/20/19 04:00 97.8 F 78 19 157/62 H 96 04/20/19 01:55 12 04/20/19 00:14 98.0 F 86 19 145/59 H 96 04/19/19 22:29 82 142/59 H 04/19/19 21:56 90 16 04/19/19 20:15 94 L 04/19/19 20:00 97.8 F 84 19 142/59 H 94 L 04/19/19 18:35 86 16 100 Weight Admit Weight 74.661 kg Weight 77.746 kg Most Recent Monitor Data Heart Rate from ECG 62 NIBP 129/53 NIBP BP-Mean 78 Respiration from ECG 11 SpO2 100 I&O: 04/18/19 04/19/19 04/20/19 06:59 06:59 06:59 Intake Total 950 1410 680 Output Total 900 Balance 950 510 680 Result Diagrams: 04/20/19 06:48 04/20/19 06:48 Phys Exam - Physical Examination Constitutional: NAD HEENT: PERRLA, moist MMs Neck: supple, full ROM Respiratory: no wheezing diffuse coarse rales with good excursion Cardiovascular: RRR Gastrointestinal: soft, non-tender, no distention, positive bowel sounds Musculoskeletal: no edema, pulses present Neurological: non-focal, moves all 4 limbs Psychiatric: normal affect, A&O x 3 Skin: no rash, cap refill <2 seconds Dx/Plan (1) Acute respiratory failure with hypoxia Code(s): J96.01 - ACUTE RESPIRATORY FAILURE WITH HYPOXIA Status: Acute (2) Community acquired pneumonia Code(s): J18.9 - PNEUMONIA, UNSPECIFIED ORGANISM Status: Acute (3) Colitis presumed to be due to infection Code(s): K52.9 - NONINFECTIVE GASTROENTERITIS AND COLITIS, UNSPECIFIED Status : Acute (4) Constipation Code(s): K59.00 - CONSTIPATION, UNSPECIFIED Status: Chronic (5) Sepsis Code(s): A41.9 - SEPSIS, UNSPECIFIED ORGANISM Status: Resolved (6) Acute worsening of stage 3 chronic kidney disease Code(s): N18.3 - CHRONIC KIDNEY DISEASE, STAGE 3 (MODERATE) Status: Chronic - Plan Plan: Acute hypoxic respiratory failure 2/2 multifocal PNA New O2 requirement in the setting of likely CAP - Vanc (04/15) and Zosyn (04/15) renally dosed. Patient allergic to levoquin. - Pharmacy to dose Vanc - Afebrile since admission and start of abx - CXR with findings suspicious for multifocal PNA, interstitial lung dz noted, follow up CXR noted interval improvement in pna vs edema - Urine strep and legionella Ag's negative - Resp viral panel negative - Duonebs q4h - Leukocytosis has resolved - Prednisone 40mg daily - Rehab screen ordered - Currently 96% on 2L O2, weaned off 1L O2 yesterday, will continue to titrate down as we can - CM: [facility], accepted pt yesterday - Pt had coughing spell yesterday w/ questionable aspiration, will get CXR today to assess for this and PNA improvement Colitis, possibly stercoral CT abdomen/pelvis: long segment nonspecific colitis involving the entire left colon. No focal cause is apparent. Consider stercoral colitis vs infectious colitis vs ischemic colitis. Mild diverticulosis. Atherosclerosis. Rectum is decompressed. - Appears left sided, involving the entire left colon - Started on Zosyn 04/15 - Abx xray yesterday shows non-obstructive bowel gas pattern, no acute findings - Positive fecal lactoferrin, negative stool culture studies - Multiple BM since admission with resolution of abdominal pain - Continue stool softener bowel regimen, cont outpt to prevent recurrence - Lactulose yesterday and 1 BM HFpEF - BNP 251, previously 347 in february/2019 - Strict I&O's - Daily weights - Last echo 12/2018: EF 50-55%, Aortic stenosis Diabetes mellitus type II - Continue home insulin regimen - Mild SSI - Hypoglycemia protocol - ACHS accuchecks HTN - Patient hypotensive in ED, likely 2/2 sepsis - received 500ml bolus - Home BP meds selectively being restarted - Currently SBP ~140s-150's CKD stage IV - creatinine 1.84 > 2.03 > 1.6 > 1.52 - BUN 53 > 42 > 28 - Monitor kidney function DVT PPX: Lovenox Code status: Full code Dispo: Pt accepted at [facility] yesterday, a.m. CXR and likely DC today as oxygen requirements are diminishing
[2019-04-20 07:13] LABS: #Eosinphils 0.1 thou/uL (0.0-0.7); #Lymphocytes 1.6 thou/uL (1.20-3.40); #Monocytes 0.9 thou/uL (0.11-0.59); %Basophils 0.2 % (0.0-1.0); %Eosinophils 1.1 % (0.0-10.0); %Lymphocytes 20.7 % (21.0-51.0); %Monocytes 11.5 % (0.0-10.0); %Neutrophils 66.5 % (42.0-75.0); Mean Corpuscular HGB CONC 33.1 g/dL (32.0-36.0); Mean Corpuscular Hemoglobin 29.5 pg (27.0-31.0); Mean Corpuscular Volume 89.1 fL (78.0-98.0); Mean Platelet Volume 8.5 fL (7.4-10.4); Platelet Count 208 thou/uL (130-400); Red Blood Cell (RBC) Count 3.38 mill/uL (4.20-5.40); White Blood Cell (WBC) Count 7.5 thou/uL (4.8-10.8)
[2019-04-20 07:25] LABS: Anion Gap 10 mmol/L (10-20); BUN (Urea Nitrogen) 33 mg/dL (9.8-20.1); Calc. Creatinine Clearance 29 mL/min (70-130); Calcium 9.7 mg/dL (7.8-10.44); Carbon Dioxide 30 mmol/L (23-31); Chloride 104 mmol/L (98-107); Estimated GFR-MDRD 30; Glucose 78 mg/dL (83-110); Potassium 4.4 mmol/L (3.5-5.1); Sodium 140 mmol/L (136-145)
[2019-04-20] MEDS ORDERED: predniSONE 20 MG TAB PO SCH (08:00)
[2019-04-20] MEDS: Enoxaparin Sodium 30 MG/0.3 ML SYRINGE SC SCH (09:15)
[2019-04-20] MEDS: hydrALAZINE 25 MG TAB PO SCH ×2 (09:15→14:24)
[2019-04-20] MEDS: Polyethylene Glycol 3350 17 GM Packet PO SCH (09:15)
[2019-04-20] MEDS: Aspirin 81 mg Enteric Coated Tablet PO SCH (09:16)
[2019-04-20] MEDS: Trospium 20 MG TAB PO SCH (09:16)
[2019-04-20] MEDS: Losartan 25 MG TAB PO SCH (09:19)
[2019-04-20] MEDS: FLUoxetine HCl 20 MG CAP PO SCH (09:19)
[2019-04-20] MEDS: Pregabalin 50 MG CAP PO SCH (09:19)
[2019-04-20] MEDS: Multivitamin W/ Minerals 1 TAB PO SCH (09:21)
[2019-04-20] MEDS: Carvedilol 25 MG TAB PO SCH (09:21)
[2019-04-20] MEDS: Insulin Glargine 15 UNITS in Pre-Filled Syringe 1 EACH SC SCH (10:40)
[2019-04-20 11:18] VITALS: TEMP 97.8
--- NOTE | 2019-04-20 11:20 | RAD ---
RADIOGRAPH CHEST 2 VIEWS: Date: 04-20-19 Time: 8:07 a.m. HISTORY: 88-year-old female with pneumonia and possible aspiration. COMPARISON: One view study of 04-16-19. FINDINGS: Again noted is the moderate sized right upper lobe infiltrate, unchanged. No interval change in the diffusely prominent interstitial markings bilaterally. Atherosclerotic calcification, ectasia, and tortuosity of the thoracic aorta. Cardiac size at upper limits of normal or slightly enlarged. No pleural effusion or pneumothorax. No interval change on the frontal projection. Diffuse severe osteopenia. IMPRESSION: 1. Right upper lobe infiltrate. 2. Diffusely prominent interstitial markings bilaterally. 3. Atherosclerosis, ectasia, and tortuosity of the thoracic aorta. 4. No interval change overall. JN POS: CET
--- NOTE | 2019-04-20 11:26 | PQF ---
DATE: 04-20-19 ATTN: DR. SANYA LEAHY Please exercise your independent, professional judgment in responding to the clarification form. Clinical indicators are provided on the bottom of this form for your review Please check appropriate box(s): HEART FAILURE: A. TYPE: [ ] Systolic / HFrEF [ X ] Diastolic / HFpEF [ ] Combined Systolic / Diastolic B. ACUITY [ ] Acute [ ] Acute on Chronic [ X ] Chronic [ ] Other diagnosis [ ] Unable to determine In addition, please specify: Present on Admission (POA): [ X ] Yes [ ] No [ ] Unable to determine For continuity of documentation, please document condition throughout progress notes and discharge summary. Thank You. CLINICAL INDICATORS - SIGNS / SYMPTOMS / LABS H&P: Met sepsis criteria on admission; CHF (HFpEF): both community acquired PNA and Hospital acquired PNA documented in H&P. PN ([facility]ivas) 04-16-19: acute CHF - appears dry this morning, advancing to ice chips and clears - may need lasix, no mention of diastolic dysfunction, however, mentioned BNP: 04-15-19: 251.2 RISKS: H&P: CAD, DM 2, HFpEF, HTN, GERD, OA, CKD4, AORTIC STENOSIS TREATMENTS: MAR: COREG PO PN ([facility]ivas) 04-16-19: acute CHF - appears dry this morning, advancing to ice chips and clears - may need lasix, no mention of diastolic dysfunction, however, mentioned (This form is maintained as a part of the permanent medical record) 2014 [employer], [employer]. All Rights Reserved [email or web address] [email or web address] Office: [phone] [place]
--- NOTE | 2019-04-20 11:49 | PRG ---
DATE OF SERVICE: 04/20/2019 Ms. Moralez is coughing less. She remains afebrile and feels somewhat better. She does, however, appear quite weak and I feel she would definitely benefit from a week or 2 in rehab to regather her strength. In the event, we will continue with one or two more days of azithromycin as she is transferred to rehab this afternoon. Job ID: [id number]
[2019-04-20] MEDS: Ondansetron ODT 4 MG TAB PO PRN (14:23)
[2019-04-20 14:25] VITALS: BP 152/70
[2019-04-20 15:39] VITALS: BMI 26.8
--- NOTE | 2019-04-21 08:45 | DIS ---
DATE OF ADMISSION: 04/16/2019 DATE OF DISCHARGE: 04/20/2019 RESIDENT: Shad Harden DO ADMITTING ATTENDING: Maggie Carter MD DISCHARGE ATTENDING: Ray Chacon MD CONSULTS: Consults were Case Management, PT, OT, Spiritual Care, and Speech Therapy. PROCEDURES: None. PRIMARY DIAGNOSES: 1. Sepsis. 2. Community-acquired pneumonia. 3. Colitis presumed due to infection. SECONDARY DIAGNOSES: 1. Constipation. 2. Physical deconditioning. 3. Congestive heart failure. 4. Hypertension. DISCHARGE MEDICATIONS: 1. Tylenol No. 3, 300 mg/30 mg one tablet q.4 hours p.r.n. 2. Aspirin 81 mg daily. 3. Clonidine 0.2 mg b.i.d. 4. Lexapro 20 mg daily. 5. Hydralazine 50 mg t.i.d. 6. Levemir 15 units subcu at bedtime. 7. Losartan 25 mg daily. 8. Multivitamin one tablet daily. 9. Zofran 4 mg q.8 hours p.r.n. 10. Protonix 40 mg daily. 11. MiraLAX 17 g packet daily. 12. Lyrica 75 mg b.i.d. 13. Ambien 5 mg at bedtime p.r.n. 14. Azithromycin 250 mg daily for 3 days. 15. Dulcolax 10 mg daily. 16. Carvedilol 25 mg b.i.d. 17. Lasix 20 mg daily. 18. Prednisone 40 mg daily for 3 days. DISCONTINUED MEDICATIONS: Fluoxetine 20 mg. HISTORY OF PRESENT ILLNESS AND HOSPITAL COURSE: The patient is an 88-year-old female who presented to the emergency department with abdominal pain, fever, mild disorientation, and significant respiratory distress. The patient stated the pain was mostly located on her left side of her abdomen and she has not had a bowel movement in 5 days. The patient met septic criteria and was admitted to the hospital with presumptive diagnosis of community-acquired pneumonia and colitis. The patient was started on vancomycin and Zosyn following urine, blood, and stool cultures. The patient was started on a bowel regimen including senna, Dulcolax, and MiraLAX. Upon admission, the patient was requiring supplemental O2 of 3 L to keep her oxygen saturation above 92. Each subsequent day of hospitalization, the patient's clinical status improved. The first few days, she had temperatures that did not meet fever criteria, but were elevated for her. Her leukocytosis gradually resolved over the next couple days of admission while she was receiving antibiotics. The patient had couple bowel movements the 2nd day of her admission and reported large improvement in her abdominal pain. The patient's cultures eventually resulted and were negative for any bacteria in her blood, urine, or identifiable infection in her stool. Of note, her stool lactoferrin was positive at an elevated level. Due to the patient's deconditioned status, PT and OT were consulted. Rehab screen was performed and it was recommended that the patient be discharged to inpatient rehab versus [facility]cf care. Over the last couple days of her admission, the patient's oxygen was gradually weaned down. On the day of discharge, she was requiring 2 L of oxygen with saturations above 96%. The patient reported feeling much better and agreed to chcf care at [facility], where she has done chcf care before. She was discharged with 3 additional days of prednisone and azithromycin to finish her antibiotic course and prednisone burst. Imaging, chest x-ray on 04/15/2019, the impression will be findings suspicious for multifocal pneumonia, acute infiltrate is superimposed on underlying interstitial fibrotic change of the lungs. Chest x-ray on 04/20/2019, impression right upper lobe infiltrate, diffusely prominent interstitial markings bilaterally, atherosclerosis, ectasia, and tortuosity of thoracic aorta, no interval change overall. Abdominal x-ray on 04/15/2019, impression unremarkable exam. DISPOSITION: Stable, gradually improving. DISCHARGE INSTRUCTIONS: 1. Location: Nursing Home Facility. 2. Diet: Diabetic diet, carb conscious. 3. Activity: As tolerated. 4. Followup: Follow up PCP within 7 days. Job ID: [id number]
== END 2019-04-20 16:46 | DRG 871 ==
LOC: ERS 19:57 → IMCU/EMU 04-16 00:48 → 2NO 04-16 20:44 → 2SE 04-16 21:45 → 2NO 04-16 21:53 → 2SE 04-16 22:16 → 2NO 04-16 22:44 → 2SE 04-16 22:54
PROVIDERS: ADMIT Internal Medicine; ATTEND Internal Medicine
DX: A41.9 Sepsis, unspecified organism (principal); J18.9 Pneumonia, unspecified organism; J96.01 Acute respiratory failure with hypoxia; A09 Infectious gastroenteritis and colitis, unspecified; I50.32 Chronic diastolic (congestive) heart failure; N18.4 Chronic kidney disease, stage 4 (severe); I13.0 Hypertensive heart and chronic kidney disease with heart failure and stage 1 through stage 4 chronic kidney disease, or unspecified chronic kidney disease; K59.00 Constipation, unspecified; I25.10 Atherosclerotic heart disease of native coronary artery without angina pectoris; K21.9 Gastro-esophageal reflux disease without esophagitis; E11.22 Type 2 diabetes mellitus with diabetic chronic kidney disease; F41.9 Anxiety disorder, unspecified; F32.9 Major depressive disorder, single episode, unspecified; E78.5 Hyperlipidemia, unspecified; D63.1 Anemia in chronic kidney disease; I35.0 Nonrheumatic aortic (valve) stenosis; Z90.49 Acquired absence of other specified parts of digestive tract; Z90.710 Acquired absence of both cervix and uterus; Z88.1 Allergy status to other antibiotic agents; Z88.2 Allergy status to sulfonamides; Z79.82 Long term (current) use of aspirin; Z79.899 Other long term (current) drug therapy; Z79.4 Long term (current) use of insulin
CPT/HCPCS: 36415; 36416; 71045; 71046; 74019; 74176; 80048; 80053; 80202; 81003; 81015; 82550; 82805; 83605; 83630; 83690; 83880; 84145; 84484; 85025; 87040; 87045; 87046; 87086; 87449; 87633; 87899; 93005; 94640; A4353; J0696; J1650; J1815; J2270; J2405; J2543; J2550; J3370; J3490; J7050; J7512; J7620; Q0162

== ENCOUNTER 2019-04-25 12:39 | Observation (INO) | payer MEDICARE, OTHER ==
[2019-04-25 14:15] LABS: #Eosinphils 0.3 thou/uL (0.0-0.7); #Lymphocytes 2.4 thou/uL (1.20-3.40); #Monocytes 0.8 thou/uL (0.11-0.59); %Basophils 0.3 % (0.0-1.0); %Eosinophils 2.3 % (0.0-10.0); %Lymphocytes 19.1 % (21.0-51.0); %Monocytes 6.5 % (0.0-10.0); %Neutrophils 71.9 % (42.0-75.0); Hemoglobin 10.8 g/dL (12.0-16.0); Mean Corpuscular HGB CONC 32.3 g/dL (32.0-36.0); Mean Corpuscular Hemoglobin 28.3 pg (27.0-31.0); Mean Corpuscular Volume 87.8 fL (78.0-98.0); Mean Platelet Volume 8.1 fL (7.4-10.4); Platelet Count 274 thou/uL (130-400); RBC Distribution Width 13.3 % (11.5-14.5); Red Blood Cell (RBC) Count 3.83 mill/uL (4.20-5.40); White Blood Cell (WBC) Count 12.5 thou/uL (4.8-10.8)
--- NOTE | 2019-04-25 14:16 | RAD ---
XR Chest 1 View Portable HISTORY: Chest pain COMPARISON: 04/16/2019, 04/20/2019 FINDINGS: The heart is enlarged. The aorta is tortuous. The lungs are expanded without lobar consolid ation, pneumothoraces, annalisa pulmonary edema or large effusions.
[2019-04-25 14:39] LABS: ALT (SGPT) 7 U/L (8-55); AST (SGOT) 14 U/L (5-34); Albumin 3.3 g/dL (3.4-4.8); Alkaline Phosphatase 76 U/L (40-150); Anion Gap 11 mmol/L (10-20); BUN (Urea Nitrogen) 44 mg/dL (9.8-20.1); Bilirubin, Total 0.3 mg/dL (0.2-1.2); Calc. Creatinine Clearance 0 mL/min (70-130); Calcium 9.4 mg/dL (7.8-10.44); Carbon Dioxide 31 mmol/L (23-31); Chloride 99 mmol/L (98-107); Estimated GFR-MDRD 35; Globulin 3.1 g/dL (2.4-3.5); Glucose 67 mg/dL (83-110); Potassium 3.8 mmol/L (3.5-5.1); Protein, Total 6.4 g/dL (6.0-8.3); Sodium 137 mmol/L (136-145)
[2019-04-25] MEDS ORDERED: Aspirin 325 MG TAB ONE (15:21)
--- NOTE | 2019-04-25 15:45 | PDOC.FPRHP ---
- History of Present Illness Chief Complaint: Chest pain History of Present Illness: 88 yo F with PMH of CAD, HFpEF, DM, and HTN presents to the ED complaining of chest pain. Pt was discharged 5 days ago to [facility] for rehab following an admission for multifocal pna and constipation. Pt stated that she was working out on the hand bike when she developed sudden, sharp, left sided chest pain. She states this radiated to her back and she was told she looked pale during the episode. She denied any shortness of breath, diaphoresis, N/V, or dizziness. She states that this pain had resolved by the time she got to the ED. ED pt had initial O2 sat in upper 80's that resolved with 2L supplemental O2. By the time she was evaluated by me in the ED she was satting 99% on RA and denied any current symptoms. - Allergies/Adverse Reactions Allergies Allergy/AdvReac Type Severity Reaction Status Date / Time clarithromycin [From Biaxin] Allergy Unknown Verified 07/27/17 17:20 metoclopramide HCl Allergy Unknown Verified 07/27/17 17:20 [From Reglan] sulfamethoxazole Allergy Unknown Verified 07/27/17 17:20 [From Bactrim] trimethoprim [From Bactrim] Allergy Unknown Verified 07/27/17 17:20 levofloxacin [From Levaquin] AdvReac Mild Nausea Verified 07/27/17 17:20 - Home Medications Medication Instructions Recorded Confirmed Type Polyethylene Glycol 3350 [Miralax] 17 gm PO Q2DAYS PRN 03/14/14 04/25/19 History Ondansetron [Zofran ODT] 4 mg PO Q8HR PRN 11/18/15 04/25/19 History Acetaminophen With Codeine 1 tablet PO Q4HR PRN 07/27/17 04/25/19 History [Tylenol with Codeine #3] Multivit-Minerals/Folic/Ginkgo 1 tablet PO DAILY 07/27/17 04/25/19 History [One Daily For Women 50+ Adv] Pregabalin [Lyrica] 75 mg PO BID 07/27/17 04/25/19 History Carvedilol 25 mg PO BID #1 tablet 07/28/17 04/25/19 Rx Aspirin [Ecotrin Low Strength] 81 mg PO DAILY 11/13/17 04/25/19 History Furosemide [Lasix] 20 mg PO DAILY tab 11/17/17 04/25/19 Rx Pantoprazole [Protonix] 40 mg PO QAM 02/26/19 04/25/19 History Zolpidem Tartrate [Ambien] 5 mg PO HS PRN 02/26/19 04/25/19 History cloNIDine [Catapres] 0.2 mg PO BID 02/26/19 04/25/19 History Escitalopram Oxalate [Lexapro] 20 mg PO DAILY 04/16/19 04/25/19 History Insulin Detemir [Levemir] 15 unit SQ HS 04/16/19 04/25/19 History Losartan Potassium 25 mg PO DAILY 04/16/19 04/25/19 History hydrALAZINE HCl [Hydralazine HCl] 50 mg PO TID 04/16/19 04/25/19 History Azithromycin 250 mg PO DAILY 3 Days #3 tablet 04/20/19 04/25/19 Rx Bisacodyl [Dulcolax] 10 mg PO DAILYPRN 30 Days #30 tab 04/20/19 04/25/19 Rx predniSONE 40 mg PO QAM-WM 3 Days #3 tab 04/20/19 04/25/19 Rx - History PMHx: CAD, DM2, GERD, HTN, HFpEF, anxiety, depression, RLS, OA, CKD4, aortic stenosis PSHx: Hysterectomy FHx: heart disease, DM in family Social: Current short term resident at [facility]. Denies tobacco, alcohol, drug use. - Review of Systems General: denies: fever/chills, other (denies sweating) Eyes: denies: other ENT: denies: other Respiratory: denies: shortness of breath Cardiovascular: reports: chest pain. denies: palpitation Gastrointestinal: reports: constipation. denies: vomiting, abdominal pain Genitourinary: denies: incontinence, dysuria Skin: denies: rashes Musculoskeletal: denies: pain, stiffness, arthritis/arthralgias Neurological: reports: other (denies dizziness). denies: syncope, weakness - Vital signs BP: 145/58 HR: 69 RR: 22 Tmax: Pox: 99% on RA Wt: - Physical Exam Constitutional: NAD HEENT: normocephalic and atraumatic, PERRLA Neck: FROM, no JVD Chest: no-tender to palpation Heart: RRR, normal S1/S2 -Heart: Holosystolic murmur Lungs: no respiratory distress, good air movement -Lungs: diffuse crackles Abdomen: soft, non-tender, bowel sounds present Musculoskeletal: normal structure, ROM grossly normal Neurological: no focal deficit, CN II-XII intact Skin: no rash/lesions, capillary refill <2 seconds Heme/Lymphatic: no unusual bruising or bleeding, no purpura Psychiatric: normal mood and affect, good judgment and insight, intact recent and remote memory FMR H&P: Results - Labs Result Diagrams: 04/25/19 14:06 04/25/19 14:06 Lab results: WBC 12.5 thou/uL (4.8-10.8) H 04/25/19 14:06 Hgb 10.8 g/dL (12.0-16.0) L 04/25/19 14:06 Hct 33.6 % (36.0-47.0) L 04/25/19 14:06 MCV 87.8 fL (78.0-98.0) 04/25/19 14:06 Plt Count 274 thou/uL (130-400) 04/25/19 14:06 Neutrophils % 71.9 % (42.0-75.0) 04/25/19 14:06 Sodium 137 mmol/L (136-145) 04/25/19 14:06 Potassium 3.8 mmol/L (3.5-5.1) 04/25/19 14:06 Chloride 99 mmol/L (98-107) 04/25/19 14:06 Carbon Dioxide 31 mmol/L (23-31) 04/25/19 14:06 BUN 44 mg/dL (9.8-20.1) H 04/25/19 14:06 Creatinine 1.43 mg/dL (0.6-1.1) H 04/25/19 14:06 Glucose 67 mg/dL (83-110) L 04/25/19 14:06 Calcium 9.4 mg/dL (7.8-10.44) 04/25/19 14:06 Total Bilirubin 0.3 mg/dL (0.2-1.2) 04/25/19 14:06 AST 14 U/L (5-34) 04/25/19 14:06 ALT 7 U/L (8-55) L 04/25/19 14:06 Alkaline Phosphatase 76 U/L (40-150) 04/25/19 14:06 Serum Total Protein 6.4 g/dL (6.0-8.3) 04/25/19 14:06 Albumin 3.3 g/dL (3.4-4.8) L 04/25/19 14:06 - EKG Interpretation EKG: LBBB, present on previous EKG FMR H&P: A/P - Problem List (1) Chest pain Current Visit: Yes Status: Deleted Code(s): R07.9 - CHEST PAIN, UNSPECIFIED (2) Combined systolic and diastolic congestive heart failure Current Visit: No Status: Chronic Code(s): I50.40 - UNSP COMBINED SYSTOLIC AND DIASTOLIC (CONGESTIVE) HRT FAIL (3) DM type 2 (diabetes mellitus, type 2) Current Visit: No Status: Chronic Qualifiers: Diabetes mellitus moth exterminator insulin use: unspecified moth exterminator insulin use status Diabetes mellitus complication status: with kidney complications Diabetes mellitus complication detail: with chronic kidney disease Chronic kidney disease stage: stage 4 (severe) Qualified Code(s): E11.22 - Type 2 diabetes mellitus with diabetic chronic kidney disease; N18.4 - Chronic kidney disease, stage 4 (severe) (4) HLD (hyperlipidemia) Current Visit: No Status: Chronic Code(s): E78.5 - HYPERLIPIDEMIA, UNSPECIFIED (5) Hypertension Current Visit: No Status: Chronic Code(s): I10 - ESSENTIAL (PRIMARY) HYPERTENSION Qualifiers: Hypertension type: essential hypertension Qualified Code(s): I10 - Essential (primary) hypertension (6) Physical deconditioning Current Visit: No Status: Chronic Code(s): R53.81 - OTHER MALAISE - Plan Atypical chest pain ACS vs MSK pain/non-cardiogenic Heart score of 5, ED: EKG LBBB - improved since previous - Initial troponin negative - Pt is not a favorable candidate for chemical stress test due to lung dz and recent illness - Will consult cardiology tomorrow morning for further recommendations HFpEF - Routine I&O's - Last echo 12/2018: EF 50-55%, Aortic stenosis Diabetes mellitus type II - Continue home insulin regimen - Mild SSI - Hypoglycemia protocol - ACHS accuchecks CKD4 -Cr improved since discharge last week -Avoid nephrotoxic drugs Chronic normocytic anemia -Levels stable since previous discharge -No over sx HTN - Restart home medications: clonidine, hydralazine, losartan - Hold: Carvedilol for possible stress tomorrow Aortic stenosis - Noted on echo 12/2018 - Patient with systolic murmur Condition: Stable VTE: Diet: Carb conscious Fluids: None Code Status: Intubation and chemical only Dispo: Admit to tele obs for cardiac rule out FMR H&P: Upper Level - Pertinent history 88 yo F presented from [facility] for chest pain that began with arm bicycle during PT. Chest pain L sided, sharp, resolved with rest. No radiation, no aggravating factor. Has not had any further chest pain in ED. Denies SOB, edema, diaphoresis. She is most concerned about constipation. - Pertinent findings Vitals: 125/65, 21, 57, 97.6, 94% on RA General: NAD Heart: RRR, 3/6 systolic ejection murmur. CP not reproducible ot palpation Lungs: crackles, decreased lung sounds bilateral bases Ext: No LE edema - Plan Date/Time: 04/25/19 1545 88 yo F with PMH CAD, DM2, HFpEF, HTN, GERD, aortic stenosis, CKD4 presents for atypical chest pain now resolved and is admitted for observation. Atypical chest pain, ACS rule out - Heart score 5 - EKG LBBB - initial trop neg, continue to trend - will discuss case with cardiology in am for recommendations on further workup as patient is not a great candidate for chemical stress CKD4 - renal function improved compared to previous admission - avoid nephrotoxic medications Chronic normocytic anemia - stable compared to prior Leukocytosis - patient without signs of infection, will monitor Chronic medical problems per development intern note. Diet: HH/CC, NPO @ midnight Ppx: Lovenox Dispo: admit to telemetry for observation ICa, have evaluated this patient and agree with findings/plan as outlined by development intern resident. Pertinent changes/additions are listed here. Addendum - Attending - Attending Attestation Date/Time: 04/26/19 0818 I personally evaluated the patient and discussed the management with Dr. Arciniega and team. I agree with the History, Examination, Assessment and Plan documented above with any addition or exceptions noted below. Recent airway disease and LBBB, will d/w cards as a lexiscan may be c/i and could consider -echo vs cath pending their recs.
[2019-04-25 18:41] LABS: Troponin I 0.014 ng/mL (< 0.028)
[2019-04-25] MEDS ORDERED: Acetaminophen 325 MG TAB PO PRN (19:11)
[2019-04-25] MEDS ORDERED: Nitroglycerin 0.4 MG TAB (25 Tab Bottle) PO PRN (19:11)
[2019-04-25 19:29] VITALS: BMI 25.3
[2019-04-25] MEDS ORDERED: Zolpidem Tartrate 5 MG TAB PO PRN (19:59)
[2019-04-25] MEDS ORDERED: Polyethylene Glycol 3350 17 GM Packet PO PRN (19:59)
[2019-04-25] MEDS ORDERED: Acetaminophen/Codeine 30-300mg Tablet PO PRN (19:59)
[2019-04-25] MEDS ORDERED: Bisacodyl 5 MG TAB PO SCH (20:00)
[2019-04-25] MEDS ORDERED: Pregabalin 25 MG CAP PO SCH (21:00)
[2019-04-25] MEDS ORDERED: Non-Formulary Item 1 EACH (Insulin Detemir [Levemir] 15 UNIT) SQ SCH (21:00)
[2019-04-25] MEDS: Insulin Glargine 15 UNITS in Pre-Filled Syringe 1 EACH SC SCH (21:07)
[2019-04-25] MEDS: cloNIDine 0.2 MG TAB PO SCH (21:07)
[2019-04-25] MEDS: Pregabalin 75 MG CAP PO SCH (21:07)
[2019-04-25] MEDS: hydrALAZINE 25 MG TAB PO SCH (21:13)
--- NOTE | 2019-04-26 05:55 | PDOC.FM ---
- Subjective Subjective: Pt states she is feeling well this morning. Denies any shortness of breath, chest pain, cough. States her shoulders are sore from using the hand bike. - Objective Vital Signs & Weight: Vital Signs (12 hours) Temp Pulse Resp BP BP Pulse Ox 04/26/19 04:20 97.7 F 79 18 122/60 97 04/25/19 23:36 97.6 F 68 15 154/72 H 93 L 04/25/19 21:13 128/60 04/25/19 21:07 111/55 L 04/25/19 19:11 97.4 F L 59 L 18 111/55 L 98 Weight Weight 73.482 kg I&O: 04/24/19 04/25/19 04/26/19 06:59 06:59 06:59 Intake Total 240 Output Total 800 Balance -560 Result Diagrams: 04/25/19 14:06 04/25/19 14:06 Phys Exam - Physical Examination Constitutional: NAD HEENT: PERRLA, sclera anicteric Neck: no JVD, full ROM Respiratory: no wheezing, no rales, no rhonchi, clear to auscultation bilateral shallow breath sounds Cardiovascular: RRR Holosystolic murmur Gastrointestinal: soft, non-tender, no distention, positive bowel sounds Musculoskeletal: no edema, pulses present Neurological: non-focal, moves all 4 limbs Psychiatric: normal affect, A&O x 3 Skin: no rash, cap refill <2 seconds Dx/Plan (1) Atypical chest pain Code(s): R07.89 - OTHER CHEST PAIN Status: Acute (2) Combined systolic and diastolic congestive heart failure Code(s): I50.40 - UNSP COMBINED SYSTOLIC AND DIASTOLIC (CONGESTIVE) HRT FAIL Status: Chronic (3) DM type 2 (diabetes mellitus, type 2) Status: Chronic Qualifiers: Diabetes mellitus group home insulin use: unspecified superintendent marine oil terminal insulin use status Diabetes mellitus complication status: with kidney complications Diabetes mellitus complication detail: with chronic kidney disease Chronic kidney disease stage: stage 4 (severe) Qualified Code(s): E11.22 - Type 2 diabetes mellitus with diabetic chronic kidney disease; N18.4 - Chronic kidney disease, stage 4 (severe) (4) HLD (hyperlipidemia) Code(s): E78.5 - HYPERLIPIDEMIA, UNSPECIFIED Status: Chronic (5) Hypertension Code(s): I10 - ESSENTIAL (PRIMARY) HYPERTENSION Status: Chronic Qualifiers: Hypertension type: essential hypertension Qualified Code(s): I10 - Essential (primary) hypertension (6) Physical deconditioning Code(s): R53.81 - OTHER MALAISE Status: Chronic - Plan Plan: Atypical chest pain ACS vs MSK pain/non-cardiogenic Heart score of 5, ED: EKG LBBB - improved since previous - Troponins: negative x3 - CXR: cardiomegaly, overall interval improvement from recent CXR last week, no signs of infiltrate or effusion - Pt is not a favorable candidate for chemical stress test due to lung dz and recent illness - Cardiology consulted: recommended holding off stress until pt's condition had improved Leukocytosis - Just coming off steroid burst for recent pna - No other sx of infection HFpEF - Routine I&O's - Last echo 12/2018: EF 50-55%, Aortic stenosis Diabetes mellitus type II - Continue home insulin regimen - Hypoglycemia protocol - ACHS accuchecks CKD4 -Cr improved since discharge last week -Avoid nephrotoxic drugs Chronic normocytic anemia -Levels stable since previous discharge -No over sx HTN - Restart home medications: clonidine, hydralazine, losartan - Hold: Carvedilol for possible stress tomorrow Aortic stenosis - Noted on echo 12/2018 - Patient with systolic murmur Condition: Stable VTE: Diet: Carb conscious Fluids: None Code Status: Intubation and chemical only Dispo: Tele obs for cardiac rule out, cardiology recommends holding off stress until pt's respiratory status improved and illness resolves. Likely DC today to [facility] for continued rehab. Addendum - Attending - Attending Attestation Date/Time: 04/26/19 1105 I personally evaluated the patient and discussed the management with Dr. Harden I agree with the History, Examination, Assessment and Plan documented above with any addition or exceptions noted below - Patient without complaints this morning. No further chest pain Afebrile VSS. A/P: 1) Chest pain- troponins negative; will await cardiology reeecommendations. 2) HTN- well controlled on current meds, 3) DM- continue current meds, 4) Deconditioning- plan to d/c back to SNF.
[2019-04-26] MEDS ORDERED: HumaLOG 300 UNITS/3 ML VIAL SC PRN (05:57)
[2019-04-26] MEDS ORDERED: Dextrose 50% Abboject 50 ML SYRINGE SLOW IVP PRN (05:57)
[2019-04-26] MEDS ORDERED: Dextrose 5% in Water 1,000 ML IV PRN (05:57)
[2019-04-26] MEDS ORDERED: Furosemide 20 MG TAB PO SCH (09:00)
[2019-04-26] MEDS ORDERED: Losartan 25 MG TAB PO SCH (09:00)
[2019-04-26] MEDS: cloNIDine 0.2 MG TAB PO SCH (09:38)
[2019-04-26] MEDS: Aspirin 81 mg Enteric Coated Tablet PO SCH (09:38)
[2019-04-26] MEDS: Escitalopram Oxalate 20 mg Tablet PO SCH (09:39)
[2019-04-26] MEDS: Multivitamin W/ Minerals 1 TAB PO SCH (09:39)
[2019-04-26] MEDS: hydrALAZINE 25 MG TAB PO SCH ×3 (09:39→23:11)
[2019-04-26] MEDS: Pregabalin 75 MG CAP PO SCH ×2 (09:40→23:12)
[2019-04-26] MEDS: Enoxaparin Sodium 30 MG/0.3 ML SYRINGE SC SCH (10:49)
--- NOTE | 2019-04-26 21:38 | CON ---
DATE OF CONSULTATION: HISTORY OF PRESENT ILLNESS: Beverley Moralez is an 88-year-old white female, initially evaluated in March 1998. At that time, she was complaining of exertional chest discomfort and dyspnea for 4 to 6 weeks. This has occurred with walking uphill or up stairs. She developed pressure in the central part of her chest that would radiate to her left arm and she will become dyspneic. The symptoms will resolve in 5 minutes. On EKG, she was found to have a left bundle-branch block, which was a new finding from 8 years previously. Echo revealed mild left ventricular enlargement with left ventricular ejection fraction of 55% to 60%, mild mitral regurgitation, and mild tricuspid regurgitation. Due to the finding of new left bundle-branch block and classical exertional angina, she underwent cardiac catheterization. She was found to have a 40% proximal LAD lesion, but otherwise unremarkable coronary arteries. I did not see her from 1997 until December 2004. She was admitted with increasing cough, productive of clear sputum. She had problems again with chest tightness with walking associated with dyspnea radiating to her left arm that would last approximately 1 minute. The discomfort improved with a deep breathe. She was hospitalized for bronchitis and underwent adenosine Cardiolite testing. This revealed normal wall motion with ejection fraction of 54% and the finding of small area of completely reversible distal anteroseptal ischemia. During that hospitalization, it was recommended that she will undergo cardiac catheterization; however, she declined. She will return for followup in February 2005 and denied any further chest discomfort, but again declined catheterization. Ultimately in March 2005, she underwent catheterization. She was found to have mild anterior hypokinesis with ejection fraction of 50% to 55%. There was a 30% to 40% proximal LAD stenosis with a very short left main. This was very similar of what had been seen in 1997. She was seen intermittently in the office, but was not seen from March 2010 to August 2016. In July 2016, she underwent Lexiscan Cardiolite testing, which revealed no evidence of ischemia or fixed defect. In October 2017, she was admitted with diastolic heart failure with slight increase in troponin I levels. She was placed on low-dose Lasix and had improvement in her breathing. She was last seen in the office on March 15, 2019, complaining of mild shortness of breath. She was having some leg edema, was on amlodipine, which was discontinued, and she was instead placed on hydralazine 50 t.i.d. She had 2 more hospitalizations in December 2018 and February 2019 for diastolic heart failure. She had been undergoing rehab at [facility]. She states that she was doing some bicycle type exercises with her arms and after 10 minutes, began to have very sharp chest discomfort on the left side of her chest, localized in a small area without radiation. She had no shortness of breath, nausea, vomiting, or diaphoresis. The pain was not pleuritic in nature. However, she noticed that if she turned or moved, that it seemed to worsen. Discomfort lasted approximately 30 to 40 minutes. She was brought to the emergency room for evaluation. Cardiac enzymes have been unremarkable. PAST MEDICAL HISTORY: 1. Hypertension. 2. Diabetes. 3. Hypercholesterolemia. 4. GERD. 5. Anxiety. 6. Depression ( in 2016). 7. Chronic kidney disease. 8. Mild coronary artery disease. MEDICATIONS: 1. Aspirin 81 daily. 2. Dulcolax 10 mg p.r.n. 3. Carvedilol 25 b.i.d. 4. Furosemide 20 daily. 5. Lexapro 20 daily. 6. Hydralazine 50 t.i.d. 7. Losartan 25 daily. 8. Zofran p.r.n. 9. Protonix 40 q.a.m. 10. Lyrica 75 b.i.d. 11. Ambien 5 mg at bedtime p.r.n. 12. MiraLAX. ALLERGIES: CLARITHROMYCIN, CODEINE, LEVAQUIN, AND SULFA. SOCIAL HISTORY: She does not smoke or drink. FAMILY HISTORY: Mother of [place] at age 72. Son has normal coronary arteries with dilated cardiomyopathy. REVIEW OF SYSTEMS: A 10-point review of systems is otherwise unremarkable. PHYSICAL EXAMINATION: VITAL SIGNS: Blood pressure 123/59, pulse of 68. HEENT: PERRL. NECK: Supple. CHEST: Clear. CARDIAC: S1 and S2 normal without any S3 or S4. There is a 1-2/6 systolic murmur along the left sternal border. ABDOMEN: Normal bowel sounds without tenderness or organomegaly. EXTREMITIES: Revealed no clubbing, cyanosis, or edema. NEUROLOGIC: Grossly intact. SKIN: Warm and dry. LABORATORY AND DIAGNOSTIC DATA: EKG revealed sinus bradycardia with left bundle-branch block (left bundle-branch block has been present for at least 20 years). Echocardiogram revealed ejection fraction of 40% to 45% with evidence for diastolic dysfunction, mild left atrial enlargement, moderate mitral annular calcification, mild mitral regurgitation, moderate aortic stenosis, mild tricuspid regurgitation. Hemoglobin 11.8, hematocrit 33.6, white count 12,500, platelets 274,000. D-dimer 3.29. Sodium 137, potassium 3.8, chloride 99, carbon dioxide 31, BUN 44, creatinine 1.43, GFR 35. Her last LDL was 84 on April 10, 2019. Chest x -ray reveals cardiomegaly. IMPRESSION: 1. Atypical chest discomfort. 2. History of coronary artery disease with 30% to 40% proximal LAD. 3. Multiple episodes recently of diastolic heart failure. 4. Moderate aortic stenosis. 5. Ejection fraction mildly depressed from before of 40% to 45%. 6. Longstanding left bundle-branch block since at least 1997. 7. Hypertension. 8. Hypercholesterolemia with muscle pains with Crestor and Livalo. 9. Diabetes. 10. Positive family history. 11. Chronic kidney disease. PLAN: With her atypical chest discomfort and chronic kidney disease, she will undergo Lexiscan Cardiolite testing. If that is normal, then I do not feel that any further evaluation would be warranted. Job ID: [id number] [facility]
[2019-04-26] MEDS ORDERED: ZOLPIDEM TARTRATE 5 MG PO PRN (21:49)
[2019-04-26] MEDS ORDERED: CODEINE PO PRN (21:53)
[2019-04-26] MEDS ORDERED: ACETAMINOPHEN PO PRN (21:53)
[2019-04-26] MEDS ORDERED: PREGABALIN 75 MG PO SCH (22:00)
[2019-04-26] MEDS ORDERED: HYDRALAZINE 25 MG PO SCH (22:00)
[2019-04-26] MEDS ORDERED: LEVEMIR INSULIN SC SCH (22:00)
[2019-04-26] MEDS ORDERED: HYDRALAZINE 50 MG PO SCH (22:30)
[2019-04-26] MEDS: Insulin Glargine 15 UNITS in Pre-Filled Syringe 1 EACH SC SCH (23:11)
--- NOTE | 2019-04-27 06:02 | PDOC.FM ---
- Subjective Subjective: Pt continues to do well. Denies any cp, sob, dizziness, fever, or chills. States that she preferred to take her home medications due to cost. - Objective Vital Signs & Weight: Vital Signs (12 hours) Temp Pulse Resp BP BP Pulse Ox 04/27/19 04:08 98.0 F 84 16 147/63 H 94 L 04/27/19 01:55 98.0 F 84 16 147/63 H 94 L 04/26/19 23:11 76 04/26/19 20:40 98.9 F 76 20 145/63 H 93 L Weight Weight 73.482 kg I&O: 04/25/19 04/26/19 04/27/19 06:59 06:59 06:59 Intake Total 240 720 Output Total 800 1000 Balance -560 -280 Result Diagrams: 04/25/19 14:06 04/25/19 14:06 Phys Exam - Physical Examination Constitutional: NAD HEENT: PERRLA, moist MMs Neck: no JVD, full ROM Respiratory: no wheezing, no rhonchi Few diffuse rales Cardiovascular: RRR Holosystolic murmur Gastrointestinal: soft, non-tender, no distention Musculoskeletal: no edema, pulses present Neurological: non-focal, moves all 4 limbs Psychiatric: normal affect, A&O x 3 Skin: no rash, cap refill <2 seconds Dx/Plan (1) Atypical chest pain Code(s): R07.89 - OTHER CHEST PAIN Status: Acute (2) Combined systolic and diastolic congestive heart failure Code(s): I50.40 - UNSP COMBINED SYSTOLIC AND DIASTOLIC (CONGESTIVE) HRT FAIL Status: Chronic (3) DM type 2 (diabetes mellitus, type 2) Status: Chronic Qualifiers: Diabetes mellitus fdc insulin use: unspecified long term care social worker insulin use status Diabetes mellitus complication status: with kidney complications Diabetes mellitus complication detail: with chronic kidney disease Chronic kidney disease stage: stage 4 (severe) Qualified Code(s): E11.22 - Type 2 diabetes mellitus with diabetic chronic kidney disease; N18.4 - Chronic kidney disease, stage 4 (severe) (4) HLD (hyperlipidemia) Code(s): E78.5 - HYPERLIPIDEMIA, UNSPECIFIED Status: Chronic (5) Hypertension Code(s): I10 - ESSENTIAL (PRIMARY) HYPERTENSION Status: Chronic Qualifiers: Hypertension type: essential hypertension Qualified Code(s): I10 - Essential (primary) hypertension (6) Physical deconditioning Code(s): R53.81 - OTHER MALAISE Status: Chronic - Plan Plan: Atypical chest pain ACS vs MSK pain/non-cardiogenic Heart score of 5, ED: EKG LBBB - improved since previous - Troponins: negative x3 - CXR: cardiomegaly, overall interval improvement from recent CXR last week, no signs of infiltrate or effusion - Cardiology consulted: Pts [employer] laboratory director Dr. Harvey, saw pt last night and felt she would be able to undergo Lexiscan today for cardiac r/o Leukocytosis - Just coming off steroid burst for recent pna - No other sx of infection HFpEF - Routine I&O's - Last echo 12/2018: EF 50-55%, Aortic stenosis - Echo yesterday: EF 40/45%, moderate aortic stenosis Diabetes mellitus type II - Continue home insulin regimen - Hypoglycemia protocol - ACHS accuchecks CKD4 -Cr improved since discharge last week -Avoid nephrotoxic drugs Chronic normocytic anemia -Levels stable since previous discharge -No over sx HTN - Restart home medications: clonidine, hydralazine, losartan - Hold: Carvedilol for stress Aortic stenosis - Noted on echo 12/2018 - Patient with systolic murmur Condition: Stable VTE: Diet: Carb conscious Fluids: None Code Status: Intubation and chemical only Dispo: Tele obs for cardiac rule out, cardiology recommends Lexiscan cardiac stress test today. Likely DC today to [facility] for continued rehab if stress is normal. Addendum - Attending - Attending Attestation Date/Time: 04/28/19 [id number] I personally evaluated the patient and discussed the management with team on 04/27. I agree with the History, Examination, Assessment and Plan documented above with any addition or exceptions noted below. Dr. Harvey has seen, plan on d/c 04/27.
[2019-04-27] MEDS ORDERED: HYDRALAZINE 25 MG PO SCH (08:00)
[2019-04-27] MEDS ORDERED: PANTOPRAZOLE 40 MG PO SCH (09:00)
[2019-04-27] MEDS ORDERED: LOSARTAN 25 MG PO SCH (09:00)
[2019-04-27] MEDS ORDERED: FUROSEMIDE 20 MG PO SCH (09:00)
[2019-04-27] MEDS ORDERED: PREGABALIN 75 MG PO SCH (09:00)
--- NOTE | 2019-04-27 13:27 | NM ---
Radionucleotide stress and rest myocardial perfusion scan with CT attenuation correction and SPECT im aging Left ventricular wall motion evaluation and ejection fraction HISTORY: Chest pain. FINDINGS: Lexiscan protocol. Heterogeneous uptake of radiotracer throughout the left ventricular myoc ardium on the stress and rest images. Small focus of slightly radiotracer uptake involving the distal aspect of the septum. Normal distribution on the rest images. No abnormalities to correlate on the Polar map images. QGS analysis of gated SPECT images shows some dyskinesis of the distal septum and anterior wall. Ejec tion fraction calculated at 56%. IMPRESSION: Indeterminate myocardial perfusion scan. Small focus of reversibility involving the dista l septum. No large vascular distribution ischemia is apparent. Borderline ejection fraction of 56%.
[2019-04-27] MEDS ORDERED: Regadenoson 0.4 MG/5 ML SYRINGE ONE (14:01)
[2019-04-27] MEDS: HYDRALAZINE 50 MG PO SCH ×2 (14:19→14:22)
[2019-04-27] MEDS: Aspirin 81 mg Enteric Coated Tablet PO SCH (14:28)
[2019-04-27] MEDS: Enoxaparin Sodium 30 MG/0.3 ML SYRINGE SC SCH (14:28)
[2019-04-27] MEDS: Multivitamin W/ Minerals 1 TAB PO SCH (14:29)
[2019-04-27] MEDS: Escitalopram Oxalate 20 mg Tablet PO SCH (14:29)
[2019-04-27 16:09] VITALS: BP 139/63; TEMP 98.2
--- NOTE | 2019-04-28 04:27 | DIS ---
DATE OF ADMISSION: 04/25/2019 DATE OF DISCHARGE: 04/27/2019 RESIDENT: Shad Harden DO ADMITTING ATTENDING: Salvatore Salazar MD DISCHARGE ATTENDING: Salvatore Salazar MD CONSULTS: Cardiology, John Harvey MD; Case Management; PT/OT. PROCEDURES PERFORMED: Nuclear stress test on 04/27/2019, impression, indeterminate myocardial perfusion scan. Small focus of reversibility involving the distal septum. No large vascular distribution ischemia is apparent. Borderline ejection fraction of 56%. PRIMARY DIAGNOSES: Atypical chest pain, combined systolic and diastolic congestive heart failure, physical deconditioning. SECONDARY DIAGNOSES: Hypertension, hyperlipidemia, and diabetes mellitus type 2. DISCHARGE MEDICATIONS: 1. Acetaminophen with codeine 300 mg/30 mg q.4 hours p.r.n. 2. Ecotrin low strength 81 mg daily. 3. Lexapro 20 mg daily. 4. Hydralazine 50 mg t.i.d. 5. Levemir 15 units subcu at bedtime. 6. Losartan potassium 25 mg p.o. daily. 7. Multivitamin one tablet daily. 8. Zofran ODT 4 mg p.o. q.8 hours p.r.n. 9. Protonix 40 mg daily. 10. MiraLAX 17 g daily. 11. Lyrica 75 mg b.i.d. 12. Ambien 5 mg at bedtime. 13. Dulcolax 10 mg daily. 14. Carvedilol 25 mg b.i.d. 15. Lasix 20 mg daily. DISCONTINUED MEDICATIONS: 1. Catapres 0.2 mg b.i.d. 2. Prednisone 40 mg daily. 3. Azithromycin 250 mg daily. HISTORY OF PRESENT ILLNESS AND HOSPITAL COURSE: The patient is an 88-year-old female with past medical history of CAD, HFPEF, diabetes mellitus and hypertension, who presented to the ED complaining of chest pain. The patient was discharged five days prior to her admission. Previous admission was for multifocal pneumonia and constipation following which, [facility]. The patient stated that she was working out on a hand bike at Rehab when she developed sudden sharp left-sided chest pain. Stated that this pain radiated to her back and was told she was pale during the episode. Denied any shortness of breath, diaphoresis, nausea, vomiting, or dizziness. The patient resolved by the time she got to the ED. O2 upon presentation was on the upper 80s that resolved with 2 L of supplemental O2. By the time she was evaluated by our team, the patient was saturating 99% on room air and denied any chest pain or shortness of breath at that time. The patient was admitted to the hospital for a cardiac rule out. EKG showed left bundle branch block that was present on her previous EKG that showed interval improvement. Chest x-ray showed cardiomegaly with no signs of pneumonia or pleural effusion. Cardiology was consulted as there was question whether the patient would be a good candidate for cardiac stress considering her recent illness. The patient's service coordinator, Dr. John Harvey, saw the patient the following day and recommended an echo and Lexiscan stress test. Echo resulted showing sibpigob-as-bunhgg aortic stenosis with an EF of 40% to 45%. Stress test was performed the following day with results as above. No further intervention was deemed necessary at that time by Cardiology. The patient continued to be asymptomatic and was subsequently discharged back to [facility] for further rehab. DISPOSITION: Stable. DISCHARGE INSTRUCTIONS: 1. Location: [facility]. 2. Diet: Heart healthy and carb conscious. 3. Activity: As tolerated. 4. Followup: PCP, Dr. Stacy Chery, within 7 days. Job ID: [id number]
== END 2019-04-27 17:10 ==
LOC: ERS 12:39 → ER/OP 12:39 → 2SW 15:51
PROVIDERS: ADMIT Emergency Medicine; ATTEND Emergency Medicine
DX: R07.89 Other chest pain (principal); I13.0 Hypertensive heart and chronic kidney disease with heart failure and stage 1 through stage 4 chronic kidney disease, or unspecified chronic kidney disease; E11.22 Type 2 diabetes mellitus with diabetic chronic kidney disease; N18.4 Chronic kidney disease, stage 4 (severe); I50.40 Unspecified combined systolic (congestive) and diastolic (congestive) heart failure; R53.81 Other malaise; E78.5 Hyperlipidemia, unspecified; I25.10 Atherosclerotic heart disease of native coronary artery without angina pectoris; F41.9 Anxiety disorder, unspecified; F32.9 Major depressive disorder, single episode, unspecified; D64.9 Anemia, unspecified; M19.90 Unspecified osteoarthritis, unspecified site; Z79.4 Long term (current) use of insulin; Z79.52 Long term (current) use of systemic steroids; Z79.82 Long term (current) use of aspirin; Z79.899 Other long term (current) drug therapy; Z88.2 Allergy status to sulfonamides; Z88.8 Allergy status to other drugs, medicaments and biological substances; Z88.1 Allergy status to other antibiotic agents
CPT/HCPCS: 71045; 78452; 80053; 82962 ×2; 84484 ×2; 85025; 93005; 93017; 93306; 94760; 97139 ×3; 97535; 99285; A9500; G0378 ×4; 36415; 36416; J1815; J2785